=== PATIENT | female | born 1950 | race Caucasian/White ===

== ENCOUNTER 2020-05-26 12:13 | Outpatient (REF) | payer MEDICARE, MEDICAID, SELFPAY ==
[2020-05-26 13:58] LABS: MANUAL DIFF FLAG NO
[2020-05-26 14:14] LABS: Basophils Absolute Auto 0.1 X10*3/uL (0.0-0.2); Basophils Percent Auto 0.7 % (0-2); Eosinophils Absolute Auto 0.1 X10*3/uL (0.0-0.4); Eosinophils Percent Auto 1.6 % (0-4); Hematocrit 38.4 % (37-47); Hemoglobin 12.7 g/dl (12.0-16.0); Imm Gran Abs Auto 0.02 X10*3/uL (0.00-0.03); Imm Gran Pct Auto 0.3 % (0.0-0.4); Lymphocytes Percent Auto 29.1 % (20-40); Mean Corpuscular HGB Conc 33.1 g/dl (31.0-35.0); Mean Corpuscular Hemoglobin 31.2 pg (27.0-33.0); Mean Corpuscular Volume 94.3 fL (80-98); Mean Platelet Volume 12.1 fL (9.4-12.3); Monocytes Absolute Auto 0.5 X10*3/uL (0.1-1.2); Monocytes Percent Auto 7.8 % (2-11); Neutrophils Absolute Auto 4.2 X10*3/uL (2.0-8.3); Neutrophils Percent Auto 60.5 % (45-73); Platelet Count 201 X10*3/uL (160-400); Red Blood Count 4.07 X10*6/uL (4.20-5.50); Red Cell Distribution Width 12.3 % (11.0-16.0); White Blood Count 6.9 X10*3/uL (4.8-10.8)
[2020-05-26 14:57] LABS: Alanine Aminotransferase 20 U/L (0-31); Albumin Level 4.2 g/dL (3.5-5.0); Alkaline Phosphatase 50 U/L (39-117); Anion Gap 13 (12-20); Aspartate Amino Transferase 24 U/L (5-31); Bilirubin Total 0.5 mg/dL (0.0-1.0); Blood Urea Nitrogen 26 mg/dL (9-16); Calcium 9.5 mg/dL (8.4-10.2); Carbon Dioxide 27 mmol/L (22-29); Chloride 105 mmol/L (96-108); Estimated Glomerular Filt Rate 34; Glucose Random 86 mg/dL (60-115); Potassium 4.4 mmol/l (3.3-5.1); Sodium 141 mmol/L (135-145); Total Protein 6.9 g/dL (6.5-8.0)
[2020-05-26 15:02] LABS: Free T4 (Free Thyroxine) 1.18 ng/dL (0.71-1.85); Thyroid Stimulating Hormone 2.23 uIU/mL (0.32-4.0)
== END 2020-05-26 12:14 | disposition home or self-care (01) ==
LOC: HO.10HDL 12:13
PROVIDERS: Visit Provider Internal Medicine
DX: E03.9 Hypothyroidism, unspecified (principal); F31.9 Bipolar disorder, unspecified; N18.9 Chronic kidney disease, unspecified
CPT/HCPCS: 36415; 80053; 84439; 84443; 85025

== ENCOUNTER 2020-07-23 13:06 | Emergency (ER) | payer MEDICARE, MEDICAID, SELFPAY ==
[2020-07-23] VITALS (10 sets, daily range): BP systolic 116–141; BP diastolic 68–85; PULSE 64–104; RESP 14–22; TEMP 36.6–37; O2SAT 96–99; BMI 19.7
--- NOTE | 2020-07-23 16:21 | CT_ITS ---
CT head/brain wo con CLINICAL INFORMATION: Reason for Exam confusion, abnormal gait, slow speech COMPARISON: No prior CT scan available for comparison. TECHNIQUE: Department standard protocol. This CT examination was performed using dose optimization techniques as appropriate, variously including the following: *Automated exposure control *Adjustment of mA and/or kV according to patient size (this includes techniques or standardized protocols for targeted exams where dose is matched to indication/reason for exam; i.e. extremities or head) *Use of iterative reconstruction technique DLP: 672 mGy-cm FINDINGS: CEREBRAL HEMISPHERES: There is no evidence of intra-axial or extra-axial mass, hemorrhage or acute infarct. BRAIN PARENCHYMA: Normal katz-white matter differentiation. SUBDURAL SPACE: No bleed. BASAL GANGLIA AND PINEAL GLAND: Hyperdense foci in the basal ganglia bilaterally likely an iatrogenic calcification. VENTRICLES: Symmetric and normal in size. CEREBELLUM AND BRAINSTEM: No space-occupying mass, hemorrhage or acute infarct. CEREBELLOPONTINE ANGLES: No lesion found. ORBITS: No intraorbital mass. VESSELS: Unremarkable SKULL BASE: Unremarkable INCLUDED SINUSES AT SKULL BASE: Clear SKULL AND SKIN: No fracture or bone lesion found. CT/CT head/brain wo con IMPRESSION: No CT evidence of intracranial space-occupying mass, bleed or infarct.
--- NOTE | 2020-07-23 16:28 | ED_ITS ---
HPI - General Adult General Chief complaint: General Medical <LUCAS Crowe - Last Filed: 07/23/20 19:42> Stated complaint: Multiple Complaints <LUCAS Crowe - Last Filed: 07/23/20 19:42> Time Seen by Provider: 07/23/20 15:27 <LUCAS Crowe - Last Filed: 07/23/20 19:42> Source: patient and family <LUCAS Crowe Last Filed: 07/23/20 19:42> Mode of arrival: ambulatory <LUCAS Crowe - Last Filed: 07/23/20 19:42> Limitations: no limitations <LUCAS Crowe Last Filed: 07/23/20 19:42> History of Present Illness HPI narrative: 70 y/o female with history of chronic back pain on opiates, bipolar, depression, HTN, CKD, hypothyroidism, who presents to the ER with her sister complaining of 2 weeks of dizziness, poor appetite, poor sleep and feeling off balance. She states she is on Tramadol for back pain and this makes her dizziness worse. She also thinks her BP meds may be making her dizziness worse as well. She reports headaches for the last 3 days, generalized and aching in nature. She denies numbness, tingling, focal weakness. She admits to feeling off balance and having a difficulty walking. Spoke with patient's sister who also provided history. She states her sister's depression is worsening. She made vague suicidal statements today saying she didn't care if she lived or or whatever happened to her. She has been refusing activities that used to bring her coni. She has lost 10lbs in the last 2 weeks. She denies a history of SI or attempts in the past. <LUCAS Crowe - Last Filed: 07/23/20 19:42> MD complaint: dizziness <LUCAS Crowe - Last Filed: 07/23/20 19:42> Onset (ago): week(s) (2) <LUCAS Crowe Last Filed: 07/23/20 19:42> Location: head <LUCAS Crowe Last Filed: 07/23/20 19:42> Radiation: non-radiation <LUCAS Crowe Last Filed: 07/23/20 19:42> Severity: moderate <LUCAS Crowe Last Filed: 07/23/20 19:42> Quality: aching <LUCAS Crowe Last Filed: 07/23/20 19:42> Pain Consistency: intermittent <LUCAS Crowe Last Filed: 07/23/20 19:42> Relieving factors: rest <LUCAS Crowe Last Filed: 07/23/20 19:42> Exacerbating factors: movement <LUCAS Crowe Last Filed: 07/23/20 19:42> Associated symptoms: confusion, headaches, loss of appetite, malaise and weakness <LUCAS Crowe Last Filed: 07/23/20 19:42> Treatments prior to arrival: none <LUCAS Crowe Last Filed: 07/23/20 19:42> Related Data Home medications: Home Medications Medication Instructions Recorded Confirmed levothyroxine 1 tab PO DAILY 07/23/20 07/23/20 metoprolol tartrate 1 tab PO BID 07/23/20 07/23/20 norethindrone ac-eth estradiol 1 tab PO DAILY 07/23/20 07/23/20 olanzapine 1 tab PO BEDTIME 07/23/20 07/23/20 tramadol 1 tab PO BID PRN 07/23/20 07/23/20 <LUCAS Crowe Last Filed: 07/23/20 19:42> Allergies/adverse reactions: Allergies Allergy/AdvReac Type Severity Reaction Status Date / Time No Known Allergies Allergy Verified 07/23/20 19:15 <LUCAS Crowe Last Filed: 07/23/20 19:42> Review of Systems Review of Systems: Constitutional: No Fever, No Chills ENT/Mouth: No sore throat, No Rhinorrhea, No Swallowing Difficulty Eyes: No Eye Pain, No Swelling, No Redness Cardiovascular: No Chest Pain, No SOB, No Orthopnea, No Edema Respiratory: No Cough, No Sputum, No Wheezing, No dyspnea Gastrointestinal: No Nausea, No Vomiting, No Diarrhea, No abdominal Pain, +cons tipation Genitourinary: No Dysuria, No Urinary Frequency, No Hematuria Musculoskeletal: No joint pain, + Myalgias Skin: No Skin Lesions, No rash Neuro: + Weakness, No Numbness, + Dizziness, + Headache Psych: No Anxiety/Panic, + Depression Heme/Lymph: No Bruising, + Lymphadenopathy (left post auricular) Endocrine: No Polyuria, No Polydipsia <LUCAS Crowe - Last Filed: 07/23/20 19:42> FOR[facility]LY [facility] Past Medical History Attestation statement: The following information was validated with the patient. <LUCAS Crowe - Last Filed: 07/23/20 19:42> Medical History: Medical History Bipolar 1 disorder Herniated disc HTN (hypertension) Hypothyroid Vision abnormalities <LUCAS Crowe - Last Filed: 07/23/20 19:42> Social History Social History: Social History Alcohol intake: unknown Smoking Status: Never smoker Use of substances other than those prescribed or required for medical reasons: Unknown Advance Directives: No Advance Directives Information Provided: Yes <LUCAS Crowe - Last Filed: 07/23/20 19:42> Physical Exam Vital Signs: Vital Signs: Last Vital Signs Temp 98.6 F 07/23/20 22:00 Pulse 98 07/24/20 06:20 Resp 20 07/24/20 06:20 BP 120/76 07/24/20 06:20 Pulse Ox 97 07/24/20 06:20 Body Mass Index 19.7 Appearance: Alert. Oriented X3. No acute distress. Eyes: Pupils equal, round and reactive to light. ENT: Pharynx normal. Neck: Normal inspection. Neck supple. CVS: Normal heart rate and rhythm. Pulses normal. Respiratory: No respiratory distress. Breath sounds normal. Abdomen: Soft and nontender. +BS x4 Skin: Skin warm and dry. Normal skin color. Normal skin turgor. No rashes. Extremities: No lower extremity edema. Negative Kristofer's sign. Neuro: Oriented X 3. No motor or sensory deficit. Repetitive speech. <LUCAS Crowe - Last Filed: 07/23/20 19:42> Vital Signs: Last Vital Signs Temp 98.6 F 07/23/20 22:00 Pulse 98 07/24/20 06:20 Resp 20 07/24/20 06:20 BP 120/76 07/24/20 06:20 Pulse Ox 97 07/24/20 06:20 Body Mass Index 19.7 <LUCAS Lamb - Last Filed: 07/24/20 02:19> Vital Signs: Last Vital Signs Temp 98.6 F 07/23/20 22:00 Pulse 98 07/24/20 06:20 Resp 20 07/24/20 06:20 BP 120/76 07/24/20 06:20 Pulse Ox 97 07/24/20 06:20 Body Mass Index 19.7 <Mariana Mojica DO - Last Filed: 07/24/20 06:48> NIH Stroke Scale Internal: Initial- Upon Arrival <LUCAS Crowe - Last Filed: 07/23/20 19:42> Level of Consciousness: Alert <LUCAS Crowe - Last Filed: 07/23/20 19:42> Level of Consciousness Questions: Answers both questions correctly <LUCAS Crowe - Last Filed: 07/23/20 19:42> Level of Consciousness Commands: Performs both tasks correctly <LUCAS Crowe - Last Filed: 07/23/20 19:42> Best Gaze: Normal <LUCAS Crowe - Last Filed: 07/23/20 19:42> Visual: No visual loss <LUCAS Crowe - Last Filed: 07/23/20 19:42> Facial Palsy: Normal <LUCAS Crowe - Last Filed: 07/23/20 19:42> Motor Arm (Right): No drift <LUCAS Crowe - Last Filed: 07/23/20 19:42> Motor Arm (Left): No drift <LUCAS Crowe - Last Filed: 07/23/20 19:42> Motor Leg (Right): No drift <LUCAS Crowe - Last Filed: 07/23/20 19:42> Motor Leg (Left): No drift <LUCAS Crowe - Last Filed: 07/23/20 19:42> Limb Ataxia: Absent <LUCAS Crowe - Last Filed: 07/23/20 19:42> Sensory: Normal <LUCAS Crowe Last Filed: 07/23/20 19:42> Best Language: No aphasia <LUCAS Crowe Last Filed: 07/23/20 19:42> Dysarthia: Mild to moderate dysarthria <LUCAS Crowe Last Filed: 07/23/20 19:42> Extinction and Inattention: No abnormality <LUCAS Crowe Last Filed: 07/23/20 19:42> Score: 1 <LUCAS Crowe - Last Filed: 07/23/20 19:42> Course Course Course Narrative: 70 yo female presenting with dizziness, headache, poor PO intake with 10 unintentional weight loss. Concern for failure to thrive and worsening bipolar depression. Will r/o all metabolic and organic causes with full workup including CT head to assess for CVA. Neuro exam is reassuring without focal weakness or abnormality. Once medically cleared will have her seen by [facility] & PT. <LUCAS Crowe Last Filed: 07/23/20 19:42> Reevaluation(s) Reevaluation #1: CT head unremarkable. Metabolic workup showing baseling mild CKD with stable lytes, mild new anemia. UA + for mild infection - Rocephin ordered. Not septic. Found to be COVID-19 POSITIVE. She denies SOB, cough, chest pain. This could explain her dizziness, weakness and loss of appetite. Results were discussed with both the patient and her sister over the phone. Not comfortable with d/c home and they both agree. Will get PT evaluation in the morning. N also consu lted for worsening depression and vague SI statements today. <LUCAS Crowe - Last Filed: 07/23/20 19:42> Reevaluation #2: CXR showing peripheral multifocal GGO. Spo2 99% on RA. No resp complaints. <LUCAS Crowe Last Filed: 07/23/20 19:42> Medical Decision Making Lab Data Result diagrams: : 07/23/20 16:38 07/23/20 16:38 <LUCAS Crowe Last Filed: 07/23/20 19:42> Labs: Lab Results 07/23/20 07/23/2021 Range/Units 16:37 16:38 16:38 WBC 8.8 (4.8-10.8) X10*3/uL RBC 3.72 L (4.20-5.50) X10*6/uL Hgb 11.5 L (12.0-16.0) g/dl Hct 34.8 L (37-47) % MCV 93.5 (80-98) fL MCH 30.9 (27.0-33.0) pg MCHC 33.0 (31.0-35.0) g/dl RDW 12.4 (11.0-16.0) % Plt Count 310 D (160-400) X10*3/uL MPV 9.9 (9.4-12.3) fL Immature Gran % (Auto) 0.6 H (0.0-0.4) % Neut % (Auto) 77.8 H (45-73) % Lymph % (Auto) 14.5 L (20-40) % [place] % (Auto) 6.7 (2-11) % Eos % (Auto) 0.2 (0-4) % Baso % (Auto) 0.2 (0-2) % Lymph # (Auto) 1.3 (1.2-4.9) X10*3/uL [place] # (Auto) 0.6 (0.1-1.2) X10*3/uL Eos # (Auto) 0.0 (0.0-0.4) X10*3/uL Baso # (Auto) 0.0 (0.0-0.2) X10*3/uL Abs Immat Gran (auto) 0.05 H (0.00-0.03) X10*3/uL Absolute Neuts (auto) 6.8 (2.0-8.3) X10*3/uL Absolute Nucleated RBC 0.000 (0.0-0.012) X10*3/uL Nucleated RBC % (auto) 0.0 (0.0-0.2) /100WBC PT (10.8-13.0) SEC INR (0.9-1.1) APTT (24.1-38.0) SEC Sodium 140 (135-145) mmol/L Potassium 4.2 (3.3-5.1) mmol/l Chloride 107 (96-108) mmol/L Carbon Dioxide 25 (22-29) mmol/L Anion Gap 12 (12-20) BUN 18 H (9-16) mg/dL Creatinine 1.53 H (0.5-1.4) mg/dL Estim Creat Clear Calc 28.6 Estimated GFR 34 Random Glucose 185 H D (60-115) mg/dL Lactic Acid 1.3 (0.5-2.0) mmol/L Calcium 9.0 (8.4-10.2) mg/dL Magnesium 2.5 (1.6-2.6) mg/dL Total Bilirubin 0.3 (0.0-1.0) mg/dL Direct Bilirubin 0.2 (0.0-0.5) mg/dL AST 30 (5-31) U/L ALT 45 H (0-31) U/L Alkaline Phosphatase 52 (39-117) U/L Troponin I High Sens (<3.5-17.0) ng/L B-Natriuretic Peptide (<100) pg/mL Total Protein 6.9 (6.5-8.0) g/dL Albumin 3.8 (3.5-5.0) g/dL TSH 1.68 (0.32-4.0) mIU/mL Urine Color Urine Appearance Urine pH (5.0-8.0) Ur Specific [place] (1.005-1.025) Urine Protein (NEG-TRACE) MG/DL Urine Glucose (UA) (NEG) MG/DL Urine Ketones (NEG) MG/DL Urine Blood (NEG) Urine Nitrite (NEG) Ur Leukocyte Esterase (NEG) Urine RBC (0) /HPF Urine WBC (0-4) /HPF Ur Squamous Epith Cells /LPF Urine Bacteria /LPF Urine Opiates Screen (Not Detect) Ur Barbiturates Screen (Not Detect) Ur Phencyclidine Scrn (Not Detect) Ur Amphetamines Screen (Not Detect) U Benzodiazepines Scrn (Not Detect) Urine Cocaine Screen (Not Detect) U Marijuana (THC) Screen (Not Detect) Ethyl Alcohol mg/dL Coronavirus (PCR) (Negative) Influenza Type A (PCR) (Negative) Influenza Type B (PCR) (Negative) RSV RNA Qual (PCR) (Negative) 07/23/20 07/23/20 07/23/20 Range/Units 16:38 16:38 16:38 WBC (4.8-10.8) X10*3/uL RBC (4.20-5.50) X10*6/uL Hgb (12.0-16.0) g/dl Hct (37-47) % MCV (80-98) fL MCH (27.0-33.0) pg MCHC (31.0-35.0) g/dl RDW (11.0-16.0) % Plt Count (160-400) X10*3/uL MPV (9.4-12.3) fL Immature Gran % (Auto) (0.0-0.4) % Neut % (Auto) (45-73) % Lymph % (Auto) (20-40) % [place] % (Auto) (2-11) % Eos % (Auto) (0-4) % Baso % (Auto) (0-2) % Lymph # (Auto) (1.2-4.9) X10*3/uL [place] # (Auto) (0.1-1.2) X10*3/uL Eos # (Auto) (0.0-0.4) X10*3/uL Baso # (Auto) (0.0-0.2) X10*3/uL Abs Immat Gran (auto) (0.00-0.03) X10*3/uL Absolute Neuts (auto) (2.0-8.3) X10*3/uL Absolute Nucleated RBC (0.0-0.012) X10*3/uL Nucleated RBC % (auto) (0.0-0.2) /100WBC PT (10.8-13.0) SEC INR (0.9-1.1) APTT (24.1-38.0) SEC Sodium (135-145) mmol/L Potassium (3.3-5.1) mmol/l Chloride (96-108) mmol/L Carbon Dioxide (22-29) mmol/L Anion Gap (12-20) BUN (9-16) mg/dL Creatinine (0.5-1.4) mg/dL Estim Creat Clear Calc Estimated GFR Random Glucose (60-115) mg/dL Lactic Acid (0.5-2.0) mmol/L Calcium (8.4-10.2) mg/dL Magnesium (1.6-2.6) mg/dL Total Bilirubin (0.0-1.0) mg/dL Direct Bilirubin (0.0-0.5) mg/dL AST (5-31) U/L ALT (0-31) U/L Alkaline Phosphatase (39-117) U/L Troponin I High Sens 4.9 (<3.5-17.0) ng/L B-Natriuretic Peptide 54 (<100) pg/mL Total Protein (6.5-8.0) g/dL Albumin (3.5-5.0) g/dL TSH (0.32-4.0) mIU/mL Urine Color Urine Appearance Urine pH (5.0-8.0) Ur Specific [place] (1.005-1.025) Urine Protein (NEG-TRACE) MG/DL Urine Glucose (UA) (NEG) MG/DL Urine Ketones (NEG) MG/DL Urine Blood (NEG) Urine Nitrite (NEG) Ur Leukocyte Esterase (NEG) Urine RBC (0) /HPF Urine WBC (0-4) /HPF Ur Squamous Epith Cells /LPF Urine Bacteria /LPF Urine Opiates Screen (Not Detect) Ur Barbiturates Screen (Not Detect) Ur Phencyclidine Scrn (Not Detect) Ur Amphetamines Screen (Not Detect) U Benzodiazepines Scrn (Not Detect) Urine Cocaine Screen (Not Detect) U Marijuana (THC) Screen (Not Detect) Ethyl Alcohol < 10 mg/dL Coronavirus (PCR) (Negative) Influenza Type A (PCR) (Negative) Influenza Type B (PCR) (Negative) RSV RNA Qual (PCR) (Negative) 07/23/20 07/23/20 07/23/20 Range/Units 16:40 16:47 17:28 WBC (4.8-10.8) X10*3/uL RBC (4.20-5.50) X10*6/uL Hgb (12.0-16.0) g/dl Hct (37-47) % MCV (80-98) fL MCH (27.0-33.0) pg MCHC (31.0-35.0) g/dl RDW (11.0-16.0) % Plt Count (160-400) X10*3/uL MPV (9.4-12.3) fL Immature Gran % (Auto) (0.0-0.4) % Neut % (Auto) (45-73) % Lymph % (Auto) (20-40) % [place] % (Auto) (2-11) % Eos % (Auto) (0-4) % Baso % (Auto) (0-2) % Lymph # (Auto) (1.2-4.9) X10*3/uL [place] # (Auto) (0.1-1.2) X10*3/uL Eos # (Auto) (0.0-0.4) X10*3/uL Baso # (Auto) (0.0-0.2) X10*3/uL Abs Immat Gran (auto) (0.00-0.03) X10*3/uL Absolute Neuts (auto) (2.0-8.3) X10*3/uL Absolute Nucleated RBC (0.0-0.012) X10*3/uL Nucleated RBC % (auto) (0.0-0.2) /100WBC PT 12.8 (10.8-13.0) SEC INR 1.1 (0.9-1.1) APTT 28.7 (24.1-38.0) SEC Sodium (135-145) mmol/L Potassium (3.3-5.1) mmol/l Chloride (96-108) mmol/L Carbon Dioxide (22-29) mmol/L Anion Gap (12-20) BUN (9-16) mg/dL Creatinine (0.5-1.4) mg/dL Estim Creat Clear Calc Estimated GFR Random Glucose (60-115) mg/dL Lactic Acid (0.5-2.0) mmol/L Calcium (8.4-10.2) mg/dL Magnesium (1.6-2.6) mg/dL Total Bilirubin (0.0-1.0) mg/dL Direct Bilirubin (0.0-0.5) mg/dL AST (5-31) U/L ALT (0-31) U/L Alkaline Phosphatase (39-117) U/L Troponin I High Sens (<3.5-17.0) ng/L B-Natriuretic Peptide (<100) pg/mL Total Protein (6.5-8.0) g/dL Albumin (3.5-5.0) g/dL TSH (0.32-4.0) mIU/mL Urine Color YELLOW Urine Appearance CLEAR Urine pH 7.0 (5.0-8.0) Ur Specific [place] <= 1.005 (1.005-1.025) Urine Protein NEG (NEG-TRACE) MG/DL Urine Glucose (UA) NEG (NEG) MG/DL Urine Ketones NEG (NEG) MG/DL Urine Blood TRACE (NEG) Urine Nitrite NEG (NEG) Ur Leukocyte Esterase 1+ H (NEG) Urine RBC 1-4 (0) /HPF Urine WBC 5-9 H (0-4) /HPF Ur Squamous Epith Cells 1+ /LPF Urine Bacteria TRACE /LPF Urine Opiates Screen (Not Detect) Ur Barbiturates Screen (Not Detect) Ur Phencyclidine Scrn (Not Detect) Ur Amphetamines Screen (Not Detect) U Benzodiazepines Scrn (Not Detect) Urine Cocaine Screen (Not Detect) U Marijuana (THC) Screen (Not Detect) Ethyl Alcohol mg/dL Coronavirus (PCR) POSITIVE A (Negative) Influenza Type A (PCR) NEGATIVE (Negative) Influenza Type B (PCR) NEGATIVE (Negative) RSV RNA Qual (PCR) NEGATIVE (Negative) 07/23/20 Range/Units 17:28 WBC (4.8-10.8) X10*3/uL RBC (4.20-5.50) X10*6/uL Hgb (12.0-16.0) g/dl Hct (37-47) % MCV (80-98) fL MCH (27.0-33.0) pg MCHC (31.0-35.0) g/dl RDW (11.0-16.0) % Plt Count (160-400) X10*3/uL MPV (9.4-12.3) fL Immature Gran % (Auto) (0.0-0.4) % Neut % (Auto) (45-73) % Lymph % (Auto) (20-40) % [place] % (Auto) (2-11) % Eos % (Auto) (0-4) % Baso % (Auto) (0-2) % Lymph # (Auto) (1.2-4.9) X10*3/uL [place] # (Auto) (0.1-1.2) X10*3/uL Eos # (Auto) (0.0-0.4) X10*3/uL Baso # (Auto) (0.0-0.2) X10*3/uL Abs Immat Gran (auto) (0.00-0.03) X10*3/uL Absolute Neuts (auto) (2.0-8.3) X10*3/uL Absolute Nucleated RBC (0.0-0.012) X10*3/uL Nucleated RBC % (auto) (0.0-0.2) /100WBC PT (10.8-13.0) SEC INR (0.9-1.1) APTT (24.1-38.0) SEC Sodium (135-145) mmol/L Potassium (3.3-5.1) mmol/l Chloride (96-108) mmol/L Carbon Dioxide (22-29) mmol/L Anion Gap (12-20) BUN (9-16) mg/dL Creatinine (0.5-1.4) mg/dL Estim Creat Clear Calc Estimated GFR Random Glucose (60-115) mg/dL Lactic Acid (0.5-2.0) mmol/L Calcium (8.4-10.2) mg/dL Magnesium (1.6-2.6) mg/dL Total Bilirubin (0.0-1.0) mg/dL Direct Bilirubin (0.0-0.5) mg/dL AST (5-31) U/L ALT (0-31) U/L Alkaline Phosphatase (39-117) U/L Troponin I High Sens (<3.5-17.0) ng/L B-Natriuretic Peptide (<100) pg/mL Total Protein (6.5-8.0) g/dL Albumin (3.5-5.0) g/dL TSH (0.32-4.0) mIU/mL Urine Color Urine Appearance Urine pH (5.0-8.0) Ur Specific [place] (1.005-1.025) Urine Protein (NEG-TRACE) MG/DL Urine Glucose (UA) (NEG) MG/DL Urine Ketones (NEG) MG/DL Urine Blood (NEG) Urine Nitrite (NEG) Ur Leukocyte Esterase (NEG) Urine RBC (0) /HPF Urine WBC (0-4) /HPF Ur Squamous Epith Cells /LPF Urine Bacteria /LPF Urine Opiates Screen Not Detected (Not Detect) Ur Barbiturates Screen Not Detected (Not Detect) Ur Phencyclidine Scrn Not Detected (Not Detect) Ur Amphetamines Screen Not Detected (Not Detect) U Benzodiazepines Scrn Not Detected (Not Detect) Urine Cocaine Screen Not Detected (Not Detect) U Marijuana (THC) Screen Not Detected (Not Detect) Ethyl Alcohol mg/dL Coronavirus (PCR) (Negative) Influenza Type A (PCR) (Negative) Influenza Type B (PCR) (Negative) RSV RNA Qual (PCR) (Negative) <LUCAS Crowe - Last Filed: 07/23/20 19:42> Lab Results 07/23/20 07/23/20 07/23/20 Range/Units 16:37 16:38 16:38 WBC 8.8 (4.8-10.8) X10*3/uL RBC 3.72 L (4.20-5.50) X10*6/uL Hgb 11.5 L (12.0-16.0) g/dl Hct 34.8 L (37-47) % MCV 93.5 (80-98) fL MCH 30.9 (27.0-33.0) pg MCHC 33.0 (31.0-35.0) g/dl RDW 12.4 (11.0-16.0) % Plt Count 310 D (160-400) X10*3/uL MPV 9.9 (9.4-12.3) fL Immature Gran % (Auto) 0.6 H (0.0-0.4) % Neut % (Auto) 77.8 H (45-73) % Lymph % (Auto) 14.5 L (20-40) % [place] % (Auto) 6.7 (2-11) % Eos % (Auto) 0.2 (0-4) % Baso % (Auto) 0.2 (0-2) % Lymph # (Auto) 1.3 (1.2-4.9) X10*3/uL [place] # (Auto) 0.6 (0.1-1.2) X10*3/uL Eos # (Auto) 0.0 (0.0-0.4) X10*3/uL Baso # (Auto) 0.0 (0.0-0.2) X10*3/uL Abs Immat Gran (auto) 0.05 H (0.00-0.03) X10*3/uL Absolute Neuts (auto) 6.8 (2.0-8.3) X10*3/uL Absolute Nucleated RBC 0.000 (0.0-0.012) X10*3/uL Nucleated RBC % (auto) 0.0 (0.0-0.2) /100WBC PT (10.8-13.0) SEC INR (0.9-1.1) APTT (24.1-38.0) SEC Sodium 140 (135-145) mmol/L Potassium 4.2 (3.3-5.1) mmol/l Chloride 107 (96-108) mmol/L Carbon Dioxide 25 (22-29) mmol/L Anion Gap 12 (12-20) BUN 18 H (9-16) mg/dL Creatinine 1.53 H (0.5-1.4) mg/dL Estim Creat Clear Calc 28.6 Estimated GFR 34 Random Glucose 185 H D (60-115) mg/dL Lactic Acid 1.3 (0.5-2.0) mmol/L Calcium 9.0 (8.4-10.2) mg/dL Magnesium 2.5 (1.6-2.6) mg/dL Total Bilirubin 0.3 (0.0-1.0) mg/dL Direct Bilirubin 0.2 (0.0-0.5) mg/dL AST 30 (5-31) U/L ALT 45 H (0-31) U/L Alkaline Phosphatase 52 (39-117) U/L Troponin I High Sens (<3.5-17.0) ng/L B-Natriuretic Peptide (<100) pg/mL Total Protein 6.9 (6.5-8.0) g/dL Albumin 3.8 (3.5-5.0) g/dL TSH 1.68 (0.32-4.0) mIU/mL Urine Color Urine Appearance Urine pH (5.0-8.0) Ur Specific [place] (1.005-1.025) Urine Protein (NEG-TRACE) MG/DL Urine Glucose (UA) (NEG) MG/DL Urine Ketones (NEG) MG/DL Urine Blood (NEG) Urine Nitrite (NEG) Ur Leukocyte Esterase (NEG) Urine RBC (0) /HPF Urine WBC (0-4) /HPF Ur Squamous Epith Cells /LPF Urine Bacteria /LPF Urine Opiates Screen (Not Detect) Ur Barbiturates Screen (Not Detect) Ur Phencyclidine Scrn (Not Detect) Ur Amphetamines Screen (Not Detect) U Benzodiazepines Scrn (Not Detect) Urine Cocaine Screen (Not Detect) U Marijuana (THC) Screen (Not Detect) Ethyl Alcohol mg/dL Coronavirus (PCR) (Negative) Influenza Type A (PCR) (Negative) Influenza Type B (PCR) (Negative) RSV RNA Qual (PCR) (Negative) 07/23/20 07/23/20 07/23/20 Range/Units 16:38 16:38 16:38 WBC (4.8-10.8) X10*3/uL RBC (4.20-5.50) X10*6/uL Hgb (12.0-16.0) g/dl Hct (37-47) % MCV (80-98) fL MCH (27.0-33.0) pg MCHC (31.0-35.0) g/dl RDW (11.0-16.0) % Plt Count (160-400) X10*3/uL MPV (9.4-12.3) fL Immature Gran % (Auto) (0.0-0.4) % Neut % (Auto) (45-73) % Lymph % (Auto) (20-40) % [place] % (Auto) (2-11) % Eos % (Auto) (0-4) % Baso % (Auto) (0-2) % Lymph # (Auto) (1.2-4.9) X10*3/uL [place] # (Auto) (0.1-1.2) X10*3/uL Eos # (Auto) (0.0-0.4) X10*3/uL Baso # (Auto) (0.0-0.2) X10*3/uL Abs Immat Gran (auto) (0.00-0.03) X10*3/uL Absolute Neuts (auto) (2.0-8.3) X10*3/uL Absolute Nucleated RBC (0.0-0.012) X10*3/uL Nucleated RBC % (auto) (0.0-0.2) /100WBC PT (10.8-13.0) SEC INR (0.9-1.1) APTT (24.1-38.0) SEC Sodium (135-145) mmol/L Potassium (3.3-5.1) mmol/l Chloride (96-108) mmol/L Carbon Dioxide (22-29) mmol/L Anion Gap (12-20) BUN (9-16) mg/dL Creatinine (0.5-1.4) mg/dL Estim Creat Clear Calc Estimated GFR Random Glucose (60-115) mg/dL Lactic Acid (0.5-2.0) mmol/L Calcium (8.4-10.2) mg/dL Magnesium (1.6-2.6) mg/dL Total Bilirubin (0.0-1.0) mg/dL Direct Bilirubin (0.0-0.5) mg/dL AST (5-31) U/L ALT (0-31) U/L Alkaline Phosphatase (39-117) U/L Troponin I High Sens 4.9 (<3.5-17.0) ng/L B-Natriuretic Peptide 54 (<100) pg/mL Total Protein (6.5-8.0) g/dL Albumin (3.5-5.0) g/dL TSH (0.32-4.0) mIU/mL Urine Color Urine Appearance Urine pH (5.0-8.0) Ur Specific [place] (1.005-1.025) Urine Protein (NEG-TRACE) MG/DL Urine Glucose (UA) (NEG) MG/DL Urine Ketones (NEG) MG/DL Urine Blood (NEG) Urine Nitrite (NEG) Ur Leukocyte Esterase (NEG) Urine RBC (0) /HPF Urine WBC (0-4) /HPF Ur Squamous Epith Cells /LPF Urine Bacteria /LPF Urine Opiates Screen (Not Detect) Ur Barbiturates Screen (Not Detect) Ur Phencyclidine Scrn (Not Detect) Ur Amphetamines Screen (Not Detect) U Benzodiazepines Scrn (Not Detect) Urine Cocaine Screen (Not Detect) U Marijuana (THC) Screen (Not Detect) Ethyl Alcohol < 10 mg/dL Coronavirus (PCR) (Negative) Influenza Type A (PCR) (Negative) Influenza Type B (PCR) (Negative) RSV RNA Qual (PCR) (Negative) 07/23/20 07/23/20 07/23/20 Range/Units 16:40 16:47 17:28 WBC (4.8-10.8) X10*3/uL RBC (4.20-5.50) X10*6/uL Hgb (12.0-16.0) g/dl Hct (37-47) % MCV (80-98) fL MCH (27.0-33.0) pg MCHC (31.0-35.0) g/dl RDW (11.0-16.0) % Plt Count (160-400) X10*3/uL MPV (9.4-12.3) fL Immature Gran % (Auto) (0.0-0.4) % Neut % (Auto) (45-73) % Lymph % (Auto) (20-40) % [place] % (Auto) (2-11) % Eos % (Auto) (0-4) % Baso % (Auto) (0-2) % Lymph # (Auto) (1.2-4.9) X10*3/uL [place] # (Auto) (0.1-1.2) X10*3/uL Eos # (Auto) (0.0-0.4) X10*3/uL Baso # (Auto) (0.0-0.2) X10*3/uL Abs Immat Gran (auto) (0.00-0.03) X10*3/uL Absolute Neuts (auto) (2.0-8.3) X10*3/uL Absolute Nucleated RBC (0.0-0.012) X10*3/uL Nucleated RBC % (auto) (0.0-0.2) /100WBC PT 12.8 (10.8-13.0) SEC INR 1.1 (0.9-1.1) APTT 28.7 (24.1-38.0) SEC Sodium (135-145) mmol/L Potassium (3.3-5.1) mmol/l Chloride (96-108) mmol/L Carbon Dioxide (22-29) mmol/L Anion Gap (12-20) BUN (9-16) mg/dL Creatinine (0.5-1.4) mg/dL Estim Creat Clear Calc Estimated GFR Random Glucose (60-115) mg/dL Lactic Acid (0.5-2.0) mmol/L Calcium (8.4-10.2) mg/dL Magnesium (1.6-2.6) mg/dL Total Bilirubin (0.0-1.0) mg/dL Direct Bilirubin (0.0-0.5) mg/dL AST (5-31) U/L ALT (0-31) U/L Alkaline Phosphatase (39-117) U/L Troponin I High Sens (<3.5-17.0) ng/L B-Natriuretic Peptide (<100) pg/mL Total Protein (6.5-8.0) g/dL Albumin (3.5-5.0) g/dL TSH (0.32-4.0) mIU/mL Urine Color YELLOW Urine Appearance CLEAR Urine pH 7.0 (5.0-8.0) Ur Specific [place] <= 1.005 (1.005-1.025) Urine Protein NEG (NEG-TRACE) MG/DL Urine Glucose (UA) NEG (NEG) MG/DL Urine Ketones NEG (NEG) MG/DL Urine Blood TRACE (NEG) Urine Nitrite NEG (NEG) Ur Leukocyte Esterase 1+ H (NEG) Urine RBC 1-4 (0) /HPF Urine WBC 5-9 H (0-4) /HPF Ur Squamous Epith Cells 1+ /LPF Urine Bacteria TRACE /LPF Urine Opiates Screen (Not Detect) Ur Barbiturates Screen (Not Detect) Ur Phencyclidine Scrn (Not Detect) Ur Amphetamines Screen (Not Detect) U Benzodiazepines Scrn (Not Detect) Urine Cocaine Screen (Not Detect) U Marijuana (THC) Screen (Not Detect) Ethyl Alcohol mg/dL Coronavirus (PCR) POSITIVE A (Negative) Influenza Type A (PCR) NEGATIVE (Negative) Influenza Type B (PCR) NEGATIVE (Negative) RSV RNA Qual (PCR) NEGATIVE (Negative) 07/23/20 Range/Units 17:28 WBC (4.8-10.8) X10*3/uL RBC (4.20-5.50) X10*6/uL Hgb (12.0-16.0) g/dl Hct (37-47) % MCV (80-98) fL MCH (27.0-33.0) pg MCHC (31.0-35.0) g/dl RDW (11.0-16.0) % Plt Count (160-400) X10*3/uL MPV (9.4-12.3) fL Immature Gran % (Auto) (0.0-0.4) % Neut % (Auto) (45-73) % Lymph % (Auto) (20-40) % [place] % (Auto) (2-11) % Eos % (Auto) (0-4) % Baso % (Auto) (0-2) % Lymph # (Auto) (1.2-4.9) X10*3/uL [place] # (Auto) (0.1-1.2) X10*3/uL Eos # (Auto) (0.0-0.4) X10*3/uL Baso # (Auto) (0.0-0.2) X10*3/uL Abs Immat Gran (auto) (0.00-0.03) X10*3/uL Absolute Neuts (auto) (2.0-8.3) X10*3/uL Absolute Nucleated RBC (0.0-0.012) X10*3/uL Nucleated RBC % (auto) (0.0-0.2) /100WBC PT (10.8-13.0) SEC INR (0.9-1.1) APTT (24.1-38.0) SEC Sodium (135-145) mmol/L Potassium (3.3-5.1) mmol/l Chloride (96-108) mmol/L Carbon Dioxide (22-29) mmol/L Anion Gap (12-20) BUN (9-16) mg/dL Creatinine (0.5-1.4) mg/dL Estim Creat Clear Calc Estimated GFR Random Glucose (60-115) mg/dL Lactic Acid (0.5-2.0) mmol/L Calcium (8.4-10.2) mg/dL Magnesium (1.6-2.6) mg/dL Total Bilirubin (0.0-1.0) mg/dL Direct Bilirubin (0.0-0.5) mg/dL AST (5-31) U/L ALT (0-31) U/L Alkaline Phosphatase (39-117) U/L Troponin I High Sens (<3.5-17.0) ng/L B-Natriuretic Peptide (<100) pg/mL Total Protein (6.5-8.0) g/dL Albumin (3.5-5.0) g/dL TSH (0.32-4.0) mIU/mL Urine Color Urine Appearance Urine pH (5.0-8.0) Ur Specific [place] (1.005-1.025) Urine Protein (NEG-TRACE) MG/DL Urine Glucose (UA) (NEG) MG/DL Urine Ketones (NEG) MG/DL Urine Blood (NEG) Urine Nitrite (NEG) Ur Leukocyte Esterase (NEG) Urine RBC (0) /HPF Urine WBC (0-4) /HPF Ur Squamous Epith Cells /LPF Urine Bacteria /LPF Urine Opiates Screen Not Detected (Not Detect) Ur Barbiturates Screen Not Detected (Not Detect) Ur Phencyclidine Scrn Not Detected (Not Detect) Ur Amphetamines Screen Not Detected (Not Detect) U Benzodiazepines Scrn Not Detected (Not Detect) Urine Cocaine Screen Not Detected (Not Detect) U Marijuana (THC) Screen Not Detected (Not Detect) Ethyl Alcohol mg/dL Coronavirus (PCR) (Negative) Influenza Type A (PCR) (Negative) Influenza Type B (PCR) (Negative) RSV RNA Qual (PCR) (Negative) <LUCAS Lamb - Last Filed: 07/24/20 02:19> Lab Results 07/23/20 07/23/20 07/23/20 Range/Units 16:37 16:38 16:38 WBC 8.8 (4.8-10.8) X10*3/uL RBC 3.72 L (4.20-5.50) X10*6/uL Hgb 11.5 L (12.0-16.0) g/dl Hct 34.8 L (37-47) % MCV 93.5 (80-98) fL MCH 30.9 (27.0-33.0) pg MCHC 33.0 (31.0-35.0) g/dl RDW 12.4 (11.0-16.0) % Plt Count 310 D (160-400) X10*3/uL MPV 9.9 (9.4-12.3) fL Immature Gran % (Auto) 0.6 H (0.0-0.4) % Neut % (Auto) 77.8 H (45-73) % Lymph % (Auto) 14.5 L (20-40) % [place] % (Auto) 6.7 (2-11) % Eos % (Auto) 0.2 (0-4) % Baso % (Auto) 0.2 (0-2) % Lymph # (Auto) 1.3 (1.2-4.9) X10*3/uL [place] # (Auto) 0.6 (0.1-1.2) X10*3/uL Eos # (Auto) 0.0 (0.0-0.4) X10*3/uL Baso # (Auto) 0.0 (0.0-0.2) X10*3/uL Abs Immat Gran (auto) 0.05 H (0.00-0.03) X10*3/uL Absolute Neuts (auto) 6.8 (2.0-8.3) X10*3/uL Absolute Nucleated RBC 0.000 (0.0-0.012) X10*3/uL Nucleated RBC % (auto) 0.0 (0.0-0.2) /100WBC PT (10.8-13.0) SEC INR (0.9-1.1) APTT (24.1-38.0) SEC Sodium 140 (135-145) mmol/L Potassium 4.2 (3.3-5.1) mmol/l Chloride 107 (96-108) mmol/L Carbon Dioxide 25 (22-29) mmol/L Anion Gap 12 (12-20) BUN 18 H (9-16) mg/dL Creatinine 1.53 H (0.5-1.4) mg/dL Estim Creat Clear Calc 28.6 Estimated GFR 34 Random Glucose 185 H D (60-115) mg/dL Lactic Acid 1.3 (0.5-2.0) mmol/L Calcium 9.0 (8.4-10.2) mg/dL Magnesium 2.5 (1.6-2.6) mg/dL Total Bilirubin 0.3 (0.0-1.0) mg/dL Direct Bilirubin 0.2 (0.0-0.5) mg/dL AST 30 (5-31) U/L ALT 45 H (0-31) U/L Alkaline Phosphatase 52 (39-117) U/L Troponin I High Sens (<3.5-17.0) ng/L B-Natriuretic Peptide (<100) pg/mL Total Protein 6.9 (6.5-8.0) g/dL Albumin 3.8 (3.5-5.0) g/dL TSH 1.68 (0.32-4.0) mIU/mL Urine Color Urine Appearance Urine pH (5.0-8.0) Ur Specific [place] (1.005-1.025) Urine Protein (NEG-TRACE) MG/DL Urine Glucose (UA) (NEG) MG/DL Urine Ketones (NEG) MG/DL Urine Blood (NEG) Urine Nitrite (NEG) Ur Leukocyte Esterase (NEG) Urine RBC (0) /HPF Urine WBC (0-4) /HPF Ur Squamous Epith Cells /LPF Urine Bacteria /LPF Urine Opiates Screen (Not Detect) Ur Barbiturates Screen (Not Detect) Ur Phencyclidine Scrn (Not Detect) Ur Amphetamines Screen (Not Detect) U Benzodiazepines Scrn (Not Detect) Urine Cocaine Screen (Not Detect) U Marijuana (THC) Screen (Not Detect) Ethyl Alcohol mg/dL Coronavirus (PCR) (Negative) Influenza Type A (PCR) (Negative) Influenza Type B (PCR) (Negative) RSV RNA Qual (PCR) (Negative) 07/23/20 07/23/20 07/23/20 Range/Units 16:38 16:38 16:38 WBC (4.8-10.8) X10*3/uL RBC (4.20-5.50) X10*6/uL Hgb (12.0-16.0) g/dl Hct (37-47) % MCV (80-98) fL MCH (27.0-33.0) pg MCHC (31.0-35.0) g/dl RDW (11.0-16.0) % Plt Count (160-400) X10*3/uL MPV (9.4-12.3) fL Immature Gran % (Auto) (0.0-0.4) % Neut % (Auto) (45-73) % Lymph % (Auto) (20-40) % [place] % (Auto) (2-11) % Eos % (Auto) (0-4) % Baso % (Auto) (0-2) % Lymph # (Auto) (1.2-4.9) X10*3/uL [place] # (Auto) (0.1-1.2) X10*3/uL Eos # (Auto) (0.0-0.4) X10*3/uL Baso # (Auto) (0.0-0.2) X10*3/uL Abs Immat Gran (auto) (0.00-0.03) X10*3/uL Absolute Neuts (auto) (2.0-8.3) X10*3/uL Absolute Nucleated RBC (0.0-0.012) X10*3/uL Nucleated RBC % (auto) (0.0-0.2) /100WBC PT (10.8-13.0) SEC INR (0.9-1.1) APTT (24.1-38.0) SEC Sodium (135-145) mmol/L Potassium (3.3-5.1) mmol/l Chloride (96-108) mmol/L Carbon Dioxide (22-29) mmol/L Anion Gap (12-20) BUN (9-16) mg/dL Creatinine (0.5-1.4) mg/dL Estim Creat Clear Calc Estimated GFR Random Glucose (60-115) mg/dL Lactic Acid (0.5-2.0) mmol/L Calcium (8.4-10.2) mg/dL Magnesium (1.6-2.6) mg/dL Total Bilirubin (0.0-1.0) mg/dL Direct Bilirubin (0.0-0.5) mg/dL AST (5-31) U/L ALT (0-31) U/L Alkaline Phosphatase (39-117) U/L Troponin I High Sens 4.9 (<3.5-17.0) ng/L B-Natriuretic Peptide 54 (<100) pg/mL Total Protein (6.5-8.0) g/dL Albumin (3.5-5.0) g/dL TSH (0.32-4.0) mIU/mL Urine Color Urine Appearance Urine pH (5.0-8.0) Ur Specific [place] (1.005-1.025) Urine Protein (NEG-TRACE) MG/DL Urine Glucose (UA) (NEG) MG/DL Urine Ketones (NEG) MG/DL Urine Blood (NEG) Urine Nitrite (NEG) Ur Leukocyte Esterase (NEG) Urine RBC (0) /HPF Urine WBC (0-4) /HPF Ur Squamous Epith Cells /LPF Urine Bacteria /LPF Urine Opiates Screen (Not Detect) Ur Barbiturates Screen (Not Detect) Ur Phencyclidine Scrn (Not Detect) Ur Amphetamines Screen (Not Detect) U Benzodiazepines Scrn (Not Detect) Urine Cocaine Screen (Not Detect) U Marijuana (THC) Screen (Not Detect) Ethyl Alcohol < 10 mg/dL Coronavirus (PCR) (Negative) Influenza Type A (PCR) (Negative) Influenza Type B (PCR) (Negative) RSV RNA Qual (PCR) (Negative) 07/23/20 07/23/20 07/23/20 Range/Units 16:40 16:47 17:28 WBC (4.8-10.8) X10*3/uL RBC (4.20-5.50) X10*6/uL Hgb (12.0-16.0) g/dl Hct (37-47) % MCV (80-98) fL MCH (27.0-33.0) pg MCHC (31.0-35.0) g/dl RDW (11.0-16.0) % Plt Count (160-400) X10*3/uL MPV (9.4-12.3) fL Immature Gran % (Auto) (0.0-0.4) % Neut % (Auto) (45-73) % Lymph % (Auto) (20-40) % [place] % (Auto) (2-11) % Eos % (Auto) (0-4) % Baso % (Auto) (0-2) % Lymph # (Auto) (1.2-4.9) X10*3/uL [place] # (Auto) (0.1-1.2) X10*3/uL Eos # (Auto) (0.0-0.4) X10*3/uL Baso # (Auto) (0.0-0.2) X10*3/uL Abs Immat Gran (auto) (0.00-0.03) X10*3/uL Absolute Neuts (auto) (2.0-8.3) X10*3/uL Absolute Nucleated RBC (0.0-0.012) X10*3/uL Nucleated RBC % (auto) (0.0-0.2) /100WBC PT 12.8 (10.8-13.0) SEC INR 1.1 (0.9-1.1) APTT 28.7 (24.1-38.0) SEC Sodium (135-145) mmol/L Potassium (3.3-5.1) mmol/l Chloride (96-108) mmol/L Carbon Dioxide (22-29) mmol/L Anion Gap (12-20) BUN (9-16) mg/dL Creatinine (0.5-1.4) mg/dL Estim Creat Clear Calc Estimated GFR Random Glucose (60-115) mg/dL Lactic Acid (0.5-2.0) mmol/L Calcium (8.4-10.2) mg/dL Magnesium (1.6-2.6) mg/dL Total Bilirubin (0.0-1.0) mg/dL Direct Bilirubin (0.0-0.5) mg/dL AST (5-31) U/L ALT (0-31) U/L Alkaline Phosphatase (39-117) U/L Troponin I High Sens (<3.5-17.0) ng/L B-Natriuretic Peptide (<100) pg/mL Total Protein (6.5-8.0) g/dL Albumin (3.5-5.0) g/dL TSH (0.32-4.0) mIU/mL Urine Color YELLOW Urine Appearance CLEAR Urine pH 7.0 (5.0-8.0) Ur Specific [place] <= 1.005 (1.005-1.025) Urine Protein NEG (NEG-TRACE) MG/DL Urine Glucose (UA) NEG (NEG) MG/DL Urine Ketones NEG (NEG) MG/DL Urine Blood TRACE (NEG) Urine Nitrite NEG (NEG) Ur Leukocyte Esterase 1+ H (NEG) Urine RBC 1-4 (0) /HPF Urine WBC 5-9 H (0-4) /HPF Ur Squamous Epith Cells 1+ /LPF Urine Bacteria TRACE /LPF Urine Opiates Screen (Not Detect) Ur Barbiturates Screen (Not Detect) Ur Phencyclidine Scrn (Not Detect) Ur Amphetamines Screen (Not Detect) U Benzodiazepines Scrn (Not Detect) Urine Cocaine Screen (Not Detect) U Marijuana (THC) Screen (Not Detect) Ethyl Alcohol mg/dL Coronavirus (PCR) POSITIVE A (Negative) Influenza Type A (PCR) NEGATIVE (Negative) Influenza Type B (PCR) NEGATIVE (Negative) RSV RNA Qual (PCR) NEGATIVE (Negative) 07/23/20 Range/Units 17:28 WBC (4.8-10.8) X10*3/uL RBC (4.20-5.50) X10*6/uL Hgb (12.0-16.0) g/dl Hct (37-47) % MCV (80-98) fL MCH (27.0-33.0) pg MCHC (31.0-35.0) g/dl RDW (11.0-16.0) % Plt Count (160-400) X10*3/uL MPV (9.4-12.3) fL Immature Gran % (Auto) (0.0-0.4) % Neut % (Auto) (45-73) % Lymph % (Auto) (20-40) % [place] % (Auto) (2-11) % Eos % (Auto) (0-4) % Baso % (Auto) (0-2) % Lymph # (Auto) (1.2-4.9) X10*3/uL [place] # (Auto) (0.1-1.2) X10*3/uL Eos # (Auto) (0.0-0.4) X10*3/uL Baso # (Auto) (0.0-0.2) X10*3/uL Abs Immat Gran (auto) (0.00-0.03) X10*3/uL Absolute Neuts (auto) (2.0-8.3) X10*3/uL Absolute Nucleated RBC (0.0-0.012) X10*3/uL Nucleated RBC % (auto) (0.0-0.2) /100WBC PT (10.8-13.0) SEC INR (0.9-1.1) APTT (24.1-38.0) SEC Sodium (135-145) mmol/L Potassium (3.3-5.1) mmol/l Chloride (96-108) mmol/L Carbon Dioxide (22-29) mmol/L Anion Gap (12-20) BUN (9-16) mg/dL Creatinine (0.5-1.4) mg/dL Estim Creat Clear Calc Estimated GFR Random Glucose (60-115) mg/dL Lactic Acid (0.5-2.0) mmol/L Calcium (8.4-10.2) mg/dL Magnesium (1.6-2.6) mg/dL Total Bilirubin (0.0-1.0) mg/dL Direct Bilirubin (0.0-0.5) mg/dL AST (5-31) U/L ALT (0-31) U/L Alkaline Phosphatase (39-117) U/L Troponin I High Sens (<3.5-17.0) ng/L B-Natriuretic Peptide (<100) pg/mL Total Protein (6.5-8.0) g/dL Albumin (3.5-5.0) g/dL TSH (0.32-4.0) mIU/mL Urine Color Urine Appearance Urine pH (5.0-8.0) Ur Specific [place] (1.005-1.025) Urine Protein (NEG-TRACE) MG/DL Urine Glucose (UA) (NEG) MG/DL Urine Ketones (NEG) MG/DL Urine Blood (NEG) Urine Nitrite (NEG) Ur Leukocyte Esterase (NEG) Urine RBC (0) /HPF Urine WBC (0-4) /HPF Ur Squamous Epith Cells /LPF Urine Bacteria /LPF Urine Opiates Screen Not Detected (Not Detect) Ur Barbiturates Screen Not Detected (Not Detect) Ur Phencyclidine Scrn Not Detected (Not Detect) Ur Amphetamines Screen Not Detected (Not Detect) U Benzodiazepines Scrn Not Detected (Not Detect) Urine Cocaine Screen Not Detected (Not Detect) U Marijuana (THC) Screen Not Detected (Not Detect) Ethyl Alcohol mg/dL Coronavirus (PCR) (Negative) Influenza Type A (PCR) (Negative) Influenza Type B (PCR) (Negative) RSV RNA Qual (PCR) (Negative) <Mariana Mojica DO - Last Filed: 07/24/20 06:48> Discharge Plan Discharge Clinical Impression: COVID-19, Acute UTI, Adult failure to thrive <LUCAS Crowe - Last Filed: 07/23/20 19:42> Prescriptions: No Action tramadol 50 mg tablet 1 tab PO BID PRN (Reason: pain) RF: 0 norethindrone ac-eth estradiol 1-5 mg-mcg tablet 1 tab PO DAILY RF: 0 levothyroxine 50 mcg tablet 1 tab PO DAILY RF: 0 metoprolol tartrate 50 mg tablet 1 tab PO BID RF: 0 olanzapine 15 mg tablet 1 tab PO BEDTIME RF: 0 <LUCAS Crowe - Last Filed: 07/23/20 19:42>
[2020-07-23 16:45] LABS: MANUAL DIFF FLAG NO
[2020-07-23 16:47] LABS: Basophils Percent Auto 0.2 % (0-2); Eosinophils Percent Auto 0.2 % (0-4); Hematocrit 34.8 % (37-47); Hemoglobin 11.5 g/dl (12.0-16.0); Imm Gran Abs Auto 0.05 X10*3/uL (0.00-0.03); Imm Gran Pct Auto 0.6 % (0.0-0.4); Lymphocytes Absolute Auto 1.3 X10*3/uL (1.2-4.9); Lymphocytes Percent Auto 14.5 % (20-40); Mean Corpuscular Hemoglobin 30.9 pg (27.0-33.0); Mean Corpuscular Volume 93.5 fL (80-98); Mean Platelet Volume 9.9 fL (9.4-12.3); Monocytes Absolute Auto 0.6 X10*3/uL (0.1-1.2); Monocytes Percent Auto 6.7 % (2-11); Neutrophils Absolute Auto 6.8 X10*3/uL (2.0-8.3); Neutrophils Percent Auto 77.8 % (45-73); Platelet Count 310 X10*3/uL (160-400); Red Blood Count 3.72 X10*6/uL (4.20-5.50); Red Cell Distribution Width 12.4 % (11.0-16.0); White Blood Count 8.8 X10*3/uL (4.8-10.8)
[2020-07-23 17:00] LABS: INTERNATIONAL NORM RATIO 1.1 (0.9-1.1); Prothrombin Time 12.8 SEC (10.8-13.0)
[2020-07-23 17:03] LABS: Partial Thromboplastin Time 28.7 SEC (24.1-38.0)
[2020-07-23 17:04] LABS: Lactic Acid 1.3 mmol/L (0.5-2.0)
[2020-07-23 17:07] LABS: Ethanol < 10 mg/dL
[2020-07-23 17:10] LABS: Alanine Aminotransferase 45 U/L (0-31); Albumin Level 3.8 g/dL (3.5-5.0); Alkaline Phosphatase 52 U/L (39-117); Anion Gap 12 (12-20); Aspartate Amino Transferase 30 U/L (5-31); Bilirubin Direct 0.2 mg/dL (0.0-0.5); Bilirubin Total 0.3 mg/dL (0.0-1.0); Blood Urea Nitrogen 18 mg/dL (9-16); Carbon Dioxide 25 mmol/L (22-29); Chloride 107 mmol/L (96-108); Creatinine Clr Calc Pharmacy 28.6; Estimated Glomerular Filt Rate 34; Glucose Random 185 mg/dL (60-115); Magnesium 2.5 mg/dL (1.6-2.6); Potassium 4.2 mmol/l (3.3-5.1); Sodium 140 mmol/L (135-145); Total Protein 6.9 g/dL (6.5-8.0)
[2020-07-23 17:12] LABS: Troponin-I High Sensitivity 4.9 ng/L (<3.5-17.0)
[2020-07-23 17:27] LABS: B Type Natriuretic Peptide 54 pg/mL (<100)
[2020-07-23 17:29] LABS: TSH reflex Free T4 1.68 mIU/mL (0.32-4.0)
[2020-07-23 17:35] LABS: Influenza A PCR NEGATIVE (Negative); Influenza B PCR NEGATIVE (Negative); Resp Syncy Virus RNA Qual PCR NEGATIVE (Negative); SARS COV2 PCR INHOUSE POSITIVE (Negative)
[2020-07-23 17:49] LABS: Glucose Urine UA NEG (NEG); Leukocyte Esterase Urine 1+ (NEG); Nitrite Urine NEG (NEG); Specific Gravity - Urine <= 1.005 (1.005-1.025); Urine Blood TRACE (NEG); Urine Ketones NEG (NEG); Urine Protein NEG (NEG-TRACE)
[2020-07-23 17:51] LABS: Appearance Urine CLEAR; Color Urine YELLOW
[2020-07-23 17:57] LABS: Amphetamine Screen Urine Not Detected (Not Detect); Barbiturates, Urine Not Detected (Not Detect); Benzodiazepines Screen Urine Not Detected (Not Detect); Cannabinoid Screen Urine Not Detected (Not Detect); Cocaine Screen Urine Not Detected (Not Detect); Opiate Screen Urine Not Detected (Not Detect); Phencyclidine Screen Urine Not Detected (Not Detect)
[2020-07-23] MEDS: 0.9 % Sodium Chloride 1,000 ML 999 ML IVCONT (18:02)
[2020-07-23 18:04] LABS: Bacteria Urine TRACE /LPF; Squamous Epithelial Cell Urine 1+ /LPF
--- NOTE | 2020-07-23 18:31 | XR_ITS ---
EXAMINATION: XR CHEST CLINICAL INFORMATION: Covid positive COMPARISON: None TECHNIQUE: Portable 6:29 PM view of the chest was obtained. FINDINGS: Multifocal groundglass opacities relative peripheral bilaterally consistent with atypical infection including viral infection. Mild prominence of the thoracic aorta likely due to thoracic tortuosity with unfolding. Heart size normal. No pleural effusion or ectopic air. XR/XR chest 1V IMPRESSION: As above.
[2020-07-23] MEDS: cefTRIAXone sodium 1 GM in 0.9 % Sodium Chloride 50 ML IV (19:22)
[2020-07-23] MEDS: traMADoL HCL 50 MG TABLET PO (20:13)
[2020-07-23] MEDS: Metoprolol Tartrate 50 MG TABLET PO (20:13)
[2020-07-23] MEDS: OLANZapine 7.5 MG TABLET 15 MG PO (20:14)
--- NOTE | 2020-07-23 20:19 | PC.NURSE ---
Patient medicated per emar as noted. Patient is quite and anxious person. She appears to be somewhat confused.
--- NOTE | 2020-07-24 02:33 | PC.NURSE ---
ARISTIDESN EVALUATED PATIENT, REPORTS THAT PT IS CLEARED FROM BEHAVIORAL HEALTH.
[2020-07-24 06:20] VITALS: BP 120/76; PULSE 98; RESP 20; O2SAT 97
[2020-07-24 09:44] VITALS: BP 120/76; PULSE 98; O2SAT 97
[2020-07-24 10:28] VITALS: BP 119/79; PULSE 63; RESP 24; O2SAT 100
[2020-07-24 10:29] VITALS: BP 119/79; PULSE 63
[2020-07-24] MEDS: Metoprolol Tartrate 50 MG TABLET PO (10:29)
[2020-07-24] MEDS: Levothyroxine Sodium 50 MCG TABLET PO (10:29)
[2020-07-24 12:39] VITALS: BP 142/84; PULSE 57; RESP 19; TEMP 36.4; O2SAT 99
--- NOTE | 2020-07-24 13:42 | PC.NURSE ---
Pt ate approx 85% of lunch- up independently to bathroom, ambulating in short distances with steady gait. Pt cooperative with plan of care for case management- pending eval from case management.
--- NOTE | 2020-07-24 15:05 | MHC.CM.ED ---
Received case management consult overnight. Patient is positiive for Covid. Physical therapy eval completed. Home therapy is recommended. Met with patient in regards to discharge planning. Patient lives alone, ambulates independently and had no services prior to coming to the ER. PCP verified. [facility] is not able to offer services at this time. Referral broadcasted in [employer]. [facility] is able to accept patient. Patient agreeable to [facility] at d/c. Patient requesting T/W reach out to her sisterLorraine to arrange transportation. Left voicemail at [phone] requesting return telephone call. Continue to monitor for d/c needs.
[2020-07-24 16:23] VITALS: BP 127/67; PULSE 61; RESP 18; O2SAT 95
== END 2020-07-24 16:45 | disposition home or self-care (01) ==
PROVIDERS: Physician Assistant; Emergency Provider Emergency Medicine; PCP Internal Medicine
DX: U07.1 COVID-19 (principal); N39.0 Urinary tract infection, site not specified; R62.7 Adult failure to thrive; R42 Dizziness and giddiness; M54.5 Low back pain; R51.9 Headache, unspecified; Z79.891 Long term (current) use of opiate analgesic; Z79.899 Other long term (current) drug therapy
CPT/HCPCS: 0241U; 36415; 70450; 71045; 80048; 80076; 80307; 80320; 81001; 83605; 83735; 83880; 84443; 84484; 85025; 85610; 85730; 87040; 87086; 87088; 87186; 96361; 96365; 97162; 99284; J0696

== ENCOUNTER 2020-08-08 14:53 | Outpatient (REF) | payer MEDICARE, MEDICAID, SELFPAY ==
[2020-08-08 15:42] LABS: Estimated Average Glucose 114 mg/dL; Hemoglobin A1c % 5.6 %
[2020-08-08 15:53] LABS: Anion Gap 14 (12-20); Blood Urea Nitrogen 24 mg/dL (9-16); Calcium 9.8 mg/dL (8.4-10.2); Carbon Dioxide 25 mmol/L (22-29); Chloride 107 mmol/L (96-108); Estimated Glomerular Filt Rate 32; Glucose Random 86 mg/dL (60-115); Potassium 4.2 mmol/L (3.3-5.1); Sodium 142 mmol/L (135-145)
[2020-08-08 16:04] LABS: Glucose Urine UA NEG (NEG); Leukocyte Esterase Urine NEG (NEG); Nitrite Urine NEG (NEG); PH 5.5 (5.0-8.0); Urine Blood NEG (NEG); Urine Ketones NEG (NEG); Urine Protein NEG (NEG-TRACE)
[2020-08-08 16:07] LABS: Appearance Urine CLEAR; Color Urine YELLOW
== END 2020-08-08 14:54 | disposition home or self-care (01) ==
LOC: HO.LAB 14:53
PROVIDERS: PCP Internal Medicine; Visit Provider Internal Medicine
DX: R73.03 Prediabetes (principal); R42 Dizziness and giddiness; N18.9 Chronic kidney disease, unspecified; E03.9 Hypothyroidism, unspecified; R30.0 Dysuria
CPT/HCPCS: 36415; 80048; 81003; 83036; 87086

== ENCOUNTER 2020-11-27 10:52 | Outpatient (REF) | payer MEDICARE, MEDICAID, SELFPAY ==
--- NOTE | ~2020-11-27 | MM_ITS ---
EXAMINATION: MM SCREENING DIGITAL BREAST TOMOSYNTHESIS, BILATERAL CLINICAL INFORMATION: Screening. Asymptomatic. The lifetime risk of breast cancer based on the Tyrer-Cuzick Model is 8%. COMPARISON: Mammography: December 11, 2017 and studies dating back to October 01, 2011 TECHNIQUE: Digital breast tomosynthesis is performed in both the craniocaudal and mediolateral oblique views along with computer-aided detection (CAD). Synthesized 2D images are generated from the tomosynthesis. FINDINGS: The breasts are heterogeneously dense, which may obscure small masses (ACR BI-RADS breast composition Category c). There are no significant masses, abnormal calcifications, or other abnormalities. MM/MM tomosynthesis screening BI IMPRESSION: There are no significant changes from prior study. ASSESSMENT: BI-RADS 1: Negative RECOMMENDATION: Routine annual mammography screening. This patient's information was entered into a reminder system with a target due date for their next mammogram.
== END 2020-11-27 10:53 | disposition home or self-care (01) ==
LOC: HO.MAMMO 10:52
PROVIDERS: PCP Internal Medicine; Referring Provider Obstetrics & Gynecology; Visit Provider Internal Medicine
DX: Z12.31 Encounter for screening mammogram for malignant neoplasm of breast (principal)
CPT/HCPCS: 77063; 77067

== ENCOUNTER 2021-02-06 08:18 | Outpatient (REF) | payer MEDICARE, MEDICAID, SELFPAY ==
[2021-02-06 10:19] LABS: MANUAL DIFF FLAG NO
[2021-02-06 10:41] LABS: Basophils Absolute Auto 0.1 X10*3/uL (0.0-0.2); Basophils Percent Auto 0.9 % (0-2); Eosinophils Absolute Auto 0.2 X10*3/uL (0.0-0.4); Eosinophils Percent Auto 3.1 % (0-4); Hematocrit 39.1 % (37-47); Hemoglobin 12.8 g/dl (12.0-16.0); Imm Gran Abs Auto 0.02 X10*3/uL (0.00-0.03); Imm Gran Pct Auto 0.3 % (0.0-0.4); Lymphocytes Percent Auto 33.5 % (20-40); Mean Corpuscular HGB Conc 32.7 g/dl (31.0-35.0); Mean Corpuscular Hemoglobin 31.1 pg (27.0-33.0); Mean Corpuscular Volume 94.9 fL (80-98); Mean Platelet Volume 12.5 fL (9.4-12.3); Monocytes Absolute Auto 0.4 X10*3/uL (0.1-1.2); Neutrophils Absolute Auto 3.3 X10*3/uL (2.0-8.3); Neutrophils Percent Auto 56.2 % (45-73); Platelet Count 188 X10*3/uL (160-400); Red Blood Count 4.12 X10*6/uL (4.20-5.50); Red Cell Distribution Width 12.4 % (11.0-16.0); White Blood Count 5.9 X10*3/uL (4.8-10.8)
[2021-02-06 10:47] LABS: Alanine Aminotransferase 15 U/L (0-31); Albumin Level 4.1 g/dL (3.5-5.0); Alkaline Phosphatase 43 U/L (39-117); Anion Gap 13 (12-20); Aspartate Amino Transferase 20 U/L (5-31); Bilirubin Total 0.5 mg/dL (0.0-1.0); Blood Urea Nitrogen 29 mg/dL (9-16); Calcium 10.6 mg/dL (8.4-10.2); Carbon Dioxide 25 mmol/L (22-29); Chloride 111 mmol/L (96-108); Cholesterol 199 mg/dL; Estimated Glomerular Filt Rate 31; Glucose Fasting 91 mg/dL (60-99); HDL Cholesterol 62 mg/dL; LDL Cholesterol Calculated 109 mg/dl; Potassium 4.5 mmol/L (3.3-5.1); Sodium 144 mmol/L (135-145); Total Protein 7.1 g/dL (6.5-8.0); Triglycerides 144 mg/dL
[2021-02-06 10:58] LABS: Estimated Average Glucose 105 mg/dL; Hemoglobin A1c % 5.3 %
[2021-02-06 11:08] LABS: Free T4 (Free Thyroxine) 1.15 ng/dL (0.71-1.85); Thyroid Stimulating Hormone 2.59 uIU/mL (0.32-4.0); Vitamin D 25-OH Total 62.6 ng/mL (>30)
== END 2021-02-06 08:19 | disposition home or self-care (01) ==
LOC: HO.10HDL 08:18
PROVIDERS: PCP Internal Medicine; Visit Provider Internal Medicine
DX: E78.00 Pure hypercholesterolemia, unspecified (principal); I12.9 Hypertensive chronic kidney disease with stage 1 through stage 4 chronic kidney disease, or unspecified chronic kidney disease; N18.9 Chronic kidney disease, unspecified; E03.9 Hypothyroidism, unspecified; M54.9 Dorsalgia, unspecified
CPT/HCPCS: 36415; 80053; 80061; 82306; 83036; 84439; 84443; 85025

== ENCOUNTER 2022-05-27 11:52 | Outpatient (REF) | payer MEDICARE, MEDICAID, SELFPAY ==
[2022-05-27 12:03] LABS: MANUAL DIFF FLAG NO
[2022-05-27 13:53] LABS: Basophils Absolute Auto 0.1 X10*3/uL (0.0-0.2); Basophils Percent Auto 0.7 % (0-2); Eosinophils Absolute Auto 0.1 X10*3/uL (0.0-0.4); Eosinophils Percent Auto 1.4 % (0-4); Hemoglobin 12.3 g/dl (12.0-16.0); Imm Gran Abs Auto 0.03 X10*3/uL (0.00-0.03); Imm Gran Pct Auto 0.4 % (0.0-0.4); Lymphocytes Percent Auto 28.9 % (20-40); Mean Corpuscular HGB Conc 31.5 g/dl (31.0-35.0); Mean Corpuscular Hemoglobin 29.9 pg (27.0-33.0); Mean Corpuscular Volume 94.9 fL (80.0-98.0); Mean Platelet Volume 11.6 fL (9.4-12.3); Monocytes Absolute Auto 0.4 X10*3/uL (0.1-1.2); Monocytes Percent Auto 5.7 % (2-11); Neutrophils Absolute Auto 4.4 x10*3/uL (2.0-8.3); Neutrophils Percent Auto 62.9 % (45-73); Platelet Count 202 X10*3/uL (160-400); Red Blood Count 4.11 X10*6/uL (4.20-5.50); White Blood Count 7.1 X10*3/uL (4.8-10.8)
[2022-05-27 14:21] LABS: Alanine Aminotransferase 23 U/L (0-31); Albumin Level 4.3 g/dL (3.5-5.0); Alkaline Phosphatase 49 U/L (39-117); Anion Gap 14 (12-20); Aspartate Amino Transferase 24 U/L (5-31); Bilirubin Total 0.4 mg/dL (0.0-1.0); Blood Urea Nitrogen 29 mg/dL (9-16); Calcium 10.2 mg/dL (8.4-10.2); Carbon Dioxide 26 mmol/L (22-29); Chloride 106 mmol/L (96-108); Cholesterol 201 mg/dL; Estimated Glomerular Filt Rate 35; Glucose Random 87 mg/dL (60-115); Potassium 4.1 mmol/L (3.3-5.1); Sodium 142 mmol/L (135-145); Total Protein 7.1 g/dL (6.5-8.0)
[2022-05-27 14:46] LABS: Free T4 (Free Thyroxine) 1.12 ng/dL (0.71-1.85); Thyroid Stimulating Hormone 1.74 uIU/mL (0.32-4.0)
== END 2022-05-27 11:53 | disposition home or self-care (01) ==
LOC: HO.LAB 11:52
PROVIDERS: PCP Internal Medicine; Visit Provider Internal Medicine
DX: E03.9 Hypothyroidism, unspecified (principal); N18.9 Chronic kidney disease, unspecified; F31.9 Bipolar disorder, unspecified
CPT/HCPCS: 36415; 80053; 82465; 84439; 84443; 85025

== ENCOUNTER 2022-10-17 12:26 | Outpatient (REF) | payer MEDICARE, MEDICAID, SELFPAY ==
[2022-10-17 13:33] LABS: Basophils Percent Auto 0.6 % (0-2); Eosinophils Absolute Auto 0.1 X10*3/uL (0.0-0.4); Eosinophils Percent Auto 1.6 % (0-4); Imm Gran Abs Auto 0.02 X10*3/uL (0.00-0.03); Imm Gran Pct Auto 0.3 % (0.0-0.4); Lymphocytes Absolute Auto 2.1 X10*3/uL (1.2-4.9); Lymphocytes Percent Auto 30.5 % (20-40); MANUAL DIFF FLAG NO; Mean Corpuscular HGB Conc 33.3 g/dl (31.0-35.0); Mean Platelet Volume 11.5 fL (9.4-12.3); Monocytes Absolute Auto 0.4 X10*3/uL (0.1-1.2); Monocytes Percent Auto 5.8 % (2-11); Neutrophils Absolute Auto 4.3 x10*3/uL (2.0-8.3); Neutrophils Percent Auto 61.2 % (45-73); Platelet Count 238 X10*3/uL (160-400); Red Blood Count 3.87 X10*6/uL (4.20-5.50)
[2022-10-17 13:54] LABS: Estimated Average Glucose 111 mg/dL; Hemoglobin A1c % 5.5 %
[2022-10-17 13:57] LABS: Alanine Aminotransferase 34 U/L (0-31); Albumin Level 4.2 g/dL (3.5-5.0); Alkaline Phosphatase 57 U/L (39-117); Anion Gap 13 (12-20); Aspartate Amino Transferase 27 U/L (5-31); Bilirubin Total 0.4 mg/dL (0.0-1.0); Blood Urea Nitrogen 24 mg/dL (9-16); Calcium 10.1 mg/dL (8.4-10.2); Carbon Dioxide 26 mmol/L (22-29); Chloride 108 mmol/L (96-108); Estimated Glomerular Filt Rate 34; Glucose Random 98 mg/dL (60-115); Potassium 4.2 mmol/L (3.3-5.1); Sodium 143 mmol/L (135-145)
[2022-10-17 14:14] LABS: Free T4 (Free Thyroxine) 1.18 ng/dL (0.71-1.85); Thyroid Stimulating Hormone 2.41 uIU/mL (0.32-4.0)
== END 2022-10-17 12:27 | disposition home or self-care (01) ==
LOC: HO.10HDL 12:26
PROVIDERS: Visit Provider Internal Medicine
DX: R63.4 Abnormal weight loss (principal); R42 Dizziness and giddiness; N18.9 Chronic kidney disease, unspecified; R73.03 Prediabetes; E03.9 Hypothyroidism, unspecified
CPT/HCPCS: 36415; 80053; 83036; 84439; 84443; 85025

== ENCOUNTER 2022-12-16 11:52 | Outpatient (REF) | payer MEDICARE, MEDICAID, SELFPAY ==
[2022-12-16 13:15] LABS: MANUAL DIFF FLAG NO
[2022-12-16 13:21] LABS: Basophils Percent Auto 0.5 % (0-2); Eosinophils Absolute Auto 0.2 X10*3/uL (0.0-0.4); Eosinophils Percent Auto 2.4 % (0-4); Hematocrit 37.9 % (37.0-47.0); Hemoglobin 12.3 g/dl (12.0-16.0); Imm Gran Abs Auto 0.04 X10*3/uL (0.00-0.03); Imm Gran Pct Auto 0.5 % (0.0-0.4); Lymphocytes Percent Auto 27.4 % (20-40); Mean Corpuscular HGB Conc 32.5 g/dl (31.0-35.0); Mean Corpuscular Hemoglobin 30.5 pg (27.0-33.0); Mean Platelet Volume 11.2 fL (9.4-12.3); Monocytes Absolute Auto 0.5 X10*3/uL (0.1-1.2); Monocytes Percent Auto 6.2 % (2-11); Neutrophils Absolute Auto 4.7 x10*3/uL (2.0-8.3); Platelet Count 237 X10*3/uL (160-400); Red Blood Count 4.03 X10*6/uL (4.20-5.50); Red Cell Distribution Width 12.9 % (11.0-16.0); White Blood Count 7.5 X10*3/uL (4.8-10.8)
[2022-12-16 13:44] LABS: Alanine Aminotransferase 24 U/L (0-31); Albumin Level 4.3 g/dL (3.5-5.0); Alkaline Phosphatase 52 U/L (39-117); Anion Gap 11 (12-20); Aspartate Amino Transferase 23 U/L (5-31); Bilirubin Total 0.3 mg/dL (0.0-1.0); Blood Urea Nitrogen 33 mg/dL (9-16); C Reactive Protein 0.23 mg/dL (< or = 0.50); Calcium 10.6 mg/dL (8.4-10.2); Carbon Dioxide 29 mmol/L (22-29); Chloride 108 mmol/L (96-108); Estimated Glomerular Filt Rate 33; Glucose Random 99 mg/dL (60-115); Iron 65 mcg/dL (30-160); Percent Iron Saturation 21 % (15-50); Potassium 4.2 mmol/L (3.3-5.1); Sodium 144 mmol/L (135-145); Total Iron Binding Capacity 316 mcg/dL (228-428); Total Protein 7.4 g/dL (6.5-8.0); Unsaturated Iron Binding 251 ug/dL
[2022-12-16 13:52] LABS: Thyroid Stimulating Hormone 2.59 uIU/mL (0.32-4.0)
== END 2022-12-16 11:53 | disposition home or self-care (01) ==
LOC: HO.10HDL 11:52
PROVIDERS: Visit Provider Internal Medicine
DX: N18.9 Chronic kidney disease, unspecified (principal); E03.9 Hypothyroidism, unspecified; J00 Acute nasopharyngitis [common cold]
CPT/HCPCS: 36415; 80053; 83540; 84439; 84443; 85025; 86140

== ENCOUNTER 2023-04-11 14:28 | Outpatient (REF) | payer MEDICARE, MEDICAID, SELFPAY ==
[2023-04-11 14:42] LABS: MANUAL DIFF FLAG NO
[2023-04-11 15:20] LABS: Basophils Absolute Auto 0.1 X10*3/uL (0.0-0.2); Basophils Percent Auto 0.5 % (0-2); Eosinophils Absolute Auto 0.1 X10*3/uL (0.0-0.4); Eosinophils Percent Auto 1.3 % (0-4); Hematocrit 37.1 % (37.0-47.0); Hemoglobin 12.1 g/dl (12.0-16.0); Imm Gran Abs Auto 0.05 X10*3/uL (0.00-0.03); Imm Gran Pct Auto 0.5 % (0.0-0.4); Lymphocytes Absolute Auto 1.8 X10*3/uL (1.2-4.9); Lymphocytes Percent Auto 19.3 % (20-40); Mean Corpuscular HGB Conc 32.6 g/dl (31.0-35.0); Mean Corpuscular Hemoglobin 30.2 pg (27.0-33.0); Mean Corpuscular Volume 92.5 fL (80.0-98.0); Mean Platelet Volume 10.7 fL (9.4-12.3); Monocytes Absolute Auto 0.6 X10*3/uL (0.1-1.2); Monocytes Percent Auto 6.3 % (2-11); Neutrophils Absolute Auto 6.9 x10*3/uL (2.0-8.3); Neutrophils Percent Auto 72.1 % (45-73); Platelet Count 327 X10*3/uL (160-400); Red Blood Count 4.01 X10*6/uL (4.20-5.50); Red Cell Distribution Width 12.5 % (11.0-16.0); White Blood Count 9.5 X10*3/uL (4.8-10.8)
[2023-04-11 18:02] LABS: Anion Gap 15 (12-20); Blood Urea Nitrogen 38 mg/dL (9-16); Calcium 10.5 mg/dL (8.4-10.2); Carbon Dioxide 24 mmol/L (22-29); Chloride 107 mmol/L (96-108); Estimated Glomerular Filt Rate 43; Free T4 (Free Thyroxine) 1.13 ng/dL (0.71-1.85); Glucose Random 89 mg/dL (60-115); Potassium 4.1 mmol/L (3.3-5.1); Sodium 142 mmol/L (135-145); Thyroid Stimulating Hormone 2.07 uIU/mL (0.32-4.0)
--- NOTE | 2023-04-17 16:35 | HP_ITS ---
DATE OF SERVICE: 04/11/2023 HISTORY OF PRESENT ILLNESS: Patient is a 73-year-old female who was seen in the office on 04/11/2023 for preop evaluation prior to cataract surgery with Dr. Urban. ALLERGIES: PATIENT HAS NO REPORTED ALLERGIES TO MEDICINES. PAST MEDICAL HISTORY: Significant for, 1. Bipolar disorder. 2. Chronic dizziness. 3. Chronic renal insufficiency. 4. Hypothyroidism. 5. Anxiety. 6. Hay fever. 7. Chronic back pain. 8. Chest wall pain. 9. Prediabetes. 10. Osteoporosis. 11. Tonsils and adenoids in the past. FAMILY HISTORY: Mother at 40 from an [place]. Father lived into his 80s. She has 1 sister and 2 brothers. SOCIAL HISTORY: She lives alone. REVIEW OF SYSTEMS: No fever, chills, or sweats. No change in weight. Some vision changes from the cataracts. No complaints of headaches. No voice changes. No peripheral edema. No complaints of chest pains or shortness of breath. Occasional diarrhea. No abdominal pain or heartburn. Some urinary incontinence, arthritis in her hands, some chronic back pain. No speech changes. Chronic anxiety. Sleep and appetite are normal. She has some cold intolerance. She does have hay fever. No skin complaints. PRESENT MEDICATIONS: Estradiol, norethindrone 1.5, metoprolol 50 mg twice a day, levothyroxine 0.05 mg daily. Zyprexa 10 mg a day, Claritin 10 mg a day, Flonase 1 squirt each nostril twice a day as needed for rhinitis or hay fever. PHYSICAL EXAMINATION: GENERAL: She is awake and alert. VITAL SIGNS: Temperature is 98, pulse 76, respirations 12, pressure 124/78, oxygen saturations 98% on room air. Her weight is 118. She is 5 feet 4 inches. She was given a flu shot on the day of the preop evaluation in the office. HEENT: Pupils equal. TMs clear. Pharynx clear. NECK: Supple. No lymph nodes, bruits, or masses. HEART: Sounds S1 and S2. Regular rate and rhythm. LUNGS: Clear. ABDOMEN: Soft, nontender with positive bowel sounds. EXTREMITIES: No clubbing, cyanosis, or edema. 1+ pulses. NEUROLOGICAL: Intact. Cranial nerves intact. She does not smoke. LABORATORY DATA: Labs are available on [place]. Normal electrolytes. Creatinine in the 1.5 range. Sugar and liver tests are normal. Thyroid levels have been stable. Blood count has been stable. ASSESSMENT/PLAN: She is medically stable for the proposed procedure. I will be available if there are any medical issues. Maxx Palomino MD FC/MODL / [phone]
== END 2023-04-11 14:29 | disposition home or self-care (01) ==
LOC: HO.LAB 14:28
PROVIDERS: PCP Internal Medicine; Visit Provider Internal Medicine
DX: E03.9 Hypothyroidism, unspecified (principal); N18.9 Chronic kidney disease, unspecified; F31.9 Bipolar disorder, unspecified
CPT/HCPCS: 36415; 80048; 84439; 84443; 85025

== ENCOUNTER 2023-04-21 07:23 | Day surgery (SDC) | payer MEDICARE, MEDICAID, SELFPAY ==
[2023-04-16 09:48] VITALS: BMI 19.6
--- NOTE | 2023-04-18 07:40 | MHC.SHP ---
Pre-Procedural Eval Section A Date of Service: 04/18/23 The patient is an INPATIENT: No Changes since office visit: No Cold of Flu in the past 2 weeks, No New Medical Problems, No Changes in Medication and No Patient answered all questions The History & Physical has been completed within 30 days and I have reviewed it.: Yes Section B Chief Complaint: Age-related nuclear cataract, right eye Allergies: Allergies Allergy/AdvReac Type Severity Reaction Status Date / Time No Known Allergies Allergy Verified 07/23/20 19:15 Plan Diagnosis/Plan: Unchanged I have reviewed the history and physical and performed a pertinent physical examination on my patient. No changes have occurred unless specified. Time Spent With Patient Time: Total time managing care of this patient today ____ minutes.
--- NOTE | 2023-04-18 10:29 | P.CONAN_ITS ---
Documented by User: Nydia William NP 04/18/23 10:30 HPI - Anesthesia Eval Consult details Narrative: 73yo F for Right Cataract Extraction IOL Insertion Medically cleared No previous cataract on record PMFSH Active Problems Active Problems: All Active Problems (Updated 04/16/23 @ 09:45 by Maricruz Gonzalez, RN) COVID-19 (Acute) Past Medical History Medical History Glaucoma Arthritis Back pain Hypothyroid HTN (hypertension) Vision abnormalities Bipolar 1 disorder Herniated disc Surgical History Surgical History (Updated 04/21/23 @ 08:44 by Delisa Lanier RN) H/O oral surgery Social History Social History Are you a primary health care sanitary technician to a significant other at home: No Do you presently have visiting nurse or other home services: No Alcohol intake: unknown Patient Tobacco Use Status: Never used Tobacco Use of substances other than those prescribed or required for medical reasons: No Have you been hit, kicked, punched, or otherwise hurt by someone within the past year? If so, by whom?: No Advance Directives: No Advance Directives Information Provided: Yes Advance Directives on File: No Recently lost weight without trying: No Eating poorly because of decreased appetite: No Nutrition Risks: No Nutritional Risk Patient : No : No Poor oral hygiene: Yes (full upper denture and lower partial) Meds Allergies Allergy/AdvReac Type Severity Reaction Status Date / Time No Known Allergies Allergy Verified 04/21/23 08:45 Home Medications Medication Instructions Recorded Confirmed Last Taken Type levothyroxine 50 mcg tablet 1 tab PO DAILY 07/23/20 04/16/23 04/21/23 06:00 History acetaminophen 500 mg tablet 1,000 mg PO TID 04/16/23 04/16/23 Unknown History calcium citrate 200 mg (950 mg) 200 mg PO BEDTIME 04/16/23 04/16/23 Unknown History tablet cholecalciferol (vitamin D3) 50 50 mcg PO QPM 04/16/23 04/16/23 Unknown History mcg (2,000 unit) capsule (Vitamin D3) estradiol-norethindrone acet 1 1 tab PO DAILY 04/16/23 04/16/23 Unknown History mg-0.5 mg tablet fluticasone propionate 50 2 spray intranasal DAILY 04/16/23 04/16/23 Unknown History mcg/actuation nasal spray,suspension latanoprost 0.005 % eye drops 1 drp ophthalmic (eye) BEDTIME 04/16/23 04/16/23 Unknown History metoprolol tartrate 25 mg tablet 25 mg PO BID 04/16/23 04/16/23 04/21/23 06:00 History olanzapine 10 mg tablet 10 mg PO BEDTIME 04/16/23 04/16/23 Unknown History peg 400-propylene glycol (PF) 0.4 1 drp ophthalmic (eye) BID 04/16/23 04/16/23 Unknown History %-0.3 % eye drops in a dropperette (Systane (PF)) Exam Exam Date and Time: April 18, 2023 1029 Height,Weight and Vital Signs: Height 5 ft 5 in Weight 53.524 kg Assessment and Plan Assessment Anesthesia Assessment: Chart Reviewed Documented by User: Garrison Swann MD 04/21/23 08:50 [facility] Past Medical History Medical History Glaucoma Arthritis Back pain Hypothyroid HTN (hypertension) Vision abnormalities Bipolar 1 disorder Herniated disc Family History Family history of problems with anesthesia: No Surgical History Surgical History (Updated 04/21/23 @ 08:44 by Delisa Lanier RN) H/O oral surgery History of Problems with Anesthesia: No Social History Social History Are you a primary health care sanitary technician to a significant other at home: No Do you presently have visiting nurse or other home services: No Alcohol intake: unknown Patient Tobacco Use Status: Never used Tobacco Use of substances other than those prescribed or required for medical reasons: No Have you been hit, kicked, punched, or otherwise hurt by someone within the past year? If so, by whom?: No Advance Directives: No Advance Directives Information Provided: Yes Advance Directives on File: No Recently lost weight without trying: No Eating poorly because of decreased appetite: No Nutrition Risks: No Nutritional Risk Patient : No : No Poor oral hygiene: Yes (full upper denture and lower partial) Meds Allergies Allergy/AdvReac Type Severity Reaction Status Date / Time No Known Allergies Allergy Verified 04/21/23 08:45 Home Medications Medication Instructions Recorded Confirmed Last Taken Type levothyroxine 50 mcg tablet 1 tab PO DAILY 07/23/20 04/16/23 04/21/23 06:00 History acetaminophen 500 mg tablet 1,000 mg PO TID 04/16/23 04/16/23 Unknown History calcium citrate 200 mg (950 mg) 200 mg PO BEDTIME 04/16/23 04/16/23 Unknown History tablet cholecalciferol (vitamin D3) 50 50 mcg PO QPM 04/16/23 04/16/23 Unknown History mcg (2,000 unit) capsule (Vitamin D3) estradiol-norethindrone acet 1 1 tab PO DAILY 04/16/23 04/16/23 Unknown History mg-0.5 mg tablet fluticasone propionate 50 2 spray intranasal DAILY 04/16/23 04/16/23 Unknown History mcg/actuation nasal spray,suspension latanoprost 0.005 % eye drops 1 drp ophthalmic (eye) BEDTIME 04/16/23 04/16/23 Unknown History metoprolol tartrate 25 mg tablet 25 mg PO BID 04/16/23 04/16/23 04/21/23 06:00 History olanzapine 10 mg tablet 10 mg PO BEDTIME 04/16/23 04/16/23 Unknown History peg 400-propylene glycol (PF) 0.4 1 drp ophthalmic (eye) BID 04/16/23 04/16/23 Unknown History %-0.3 % eye drops in a dropperette (Systane (PF)) Exam Airway Mallampati Class: II TM Dist: >3cm Neck ROM: Full Denture: Upper and Lower Assessment and Plan Assessment Anesthesia Assessment: Anesthesia Plan Discussed Final Anesthetic Review Family History of Problems with Anesthesia: No History of Problems with Anesthesia: No NPO: Yes ASA Class: II Final Preanesthetic Review: No Changes in Pt Med Stat, Meds/Allgs Chart Reviewed, Consent Obtained/Reviewed and Anes Risks/Benef Reviewed Patient Risk: Low Procedure Risk: Low Anesthetic Plan Anesthetic Plan: MAC: Disposition: Standard PACU
[2023-04-21] MEDS: Tetracaine HCl/PF 0.5% Oph Sol 4 ML DROPS 1 DROP EYE-RIGHT (08:30)
[2023-04-21] MEDS: Cyclopentolate 1 % Ophth Sol 2 ML DRPBTL 1 DROP EYE-RIGHT ×3 (08:31→08:40)
[2023-04-21] MEDS: Tropicamide 1 % Ophth Sol 3 ML BTL 1 DROP EYE-RIGHT ×3 (08:32→08:41)
[2023-04-21] MEDS: Ketorolac Tromethamine 0.5% Op 5 ML DROPS 1 DROP EYE-RIGHT ×3 (08:33→08:42)
[2023-04-21] MEDS: Phenylephrine HCL 2.5% Oph SoL 2 ML BOTTLE 1 DROP EYE-RIGHT ×3 (08:34→08:43)
[2023-04-21] MEDS: Lactated Ringers 500 ML 50 ML IV (08:42)
[2023-04-21 08:45] VITALS: BP 139/81; PULSE 55; RESP 16; TEMP 36.2; O2SAT 98
--- NOTE | 2023-04-21 09:09 | HO.PNOPHT ---
Ophthalmology Procedure Procedure Date of Service: 04/21/23 Ophthalmology Viscoelastic: Healon Duet Dual Pack Pro Ophthalmology Lenses: SENSAR AR40 (E 3) Procedure Notes: PREOPERATIVE DIAGNOSIS: Decreased visual acuity right eye secondary to cataract POSTOPERATIVE DIAGNOSIS: Same PROCEDURE: Right cataract extraction with intraocular lens insertion SURGEON: Milind Urban M.D. ANESTHESIA: Topical/MAC ESTIMATED BLOOD LOSS: None COMPLICATIONS: None After obtaining informed consent, the patient was brought to the operating room suite and placed in the supine position. After adequate sedation per anesthesia, topical drops of Tetracaine were given to the right eye. The eye was then prepped and draped in the usual sterile fashion. The operating room microscope was then positioned over the operative eye and a lid speculum placed. A paracentesis was created. Viscoelastic was then instilled into the anterior chamber. A three plane incision was then created temporally, utilizing a 2.85 mm keratome. Capsulotomy forceps were then utilized to create a circular tear capsulotomy. Hydrodissection and hydrodelineation were carried out until adequate mobilization of the nucleus occurred. Phacoemulsification was then utilized to remove the dense central nucleus followed by removal of the cortical material utilizing the automated aspiration irrigation unit. Viscoelastic was instilled into the posterior capsular bag followed by placement of a posterior chamber intraocular lens without difficulty. The residual Viscoelastic was then removed utilizing the automated IA machine. The wound was checked and found to be watertight. The patient tolerated the procedure well and the lid speculum was removed. Intracameral injection of Vigamox 0.1 mL followed by a subtenon injection of Kenalog-40 0.2 mL were administered. The patient will be seen in the a.m.
[2023-04-21 09:38] VITALS: BP 143/80; PULSE 54; RESP 16; TEMP 36.1; O2SAT 100
== END 2023-04-21 09:48 | disposition home or self-care (01) ==
PROVIDERS: PCP Internal Medicine; Visit Provider Ophthalmology
PROC: (CPT 66985; principal; 2023-04-21 09:40)
DX: H25.11 Age-related nuclear cataract, right eye (principal); H40.1131 Primary open-angle glaucoma, bilateral, mild stage; H44.21 Degenerative myopia, right eye; I10 Essential (primary) hypertension; E03.9 Hypothyroidism, unspecified; D64.9 Anemia, unspecified; J30.2 Other seasonal allergic rhinitis; Z79.51 Long term (current) use of inhaled steroids; Z79.899 Other long term (current) drug therapy; H44.20 Degenerative myopia, unspecified eye
CPT/HCPCS: 66984; J2250; J3301; V2632

== ENCOUNTER 2023-05-05 07:29 | Day surgery (SDC) | payer MEDICARE, MEDICAID, SELFPAY ==
[2023-04-16 09:59] VITALS: BMI 19.6
--- NOTE | 2023-05-02 07:54 | MHC.SHP ---
Pre-Procedural Eval Section A Date of Service: 05/02/23 The patient is an INPATIENT: No Changes since office visit: No Cold of Flu in the past 2 weeks, No New Medical Problems, No Changes in Medication and No Patient answered all questions The History & Physical has been completed within 30 days and I have reviewed it.: Yes Section B Chief Complaint: Age-related nuclear cataract, left eye Allergies: Allergies Allergy/AdvReac Type Severity Reaction Status Date / Time No Known Allergies Allergy Verified 04/21/23 08:45 Plan Diagnosis/Plan: Unchanged I have reviewed the history and physical and performed a pertinent physical examination on my patient. No changes have occurred unless specified. Time Spent With Patient Time: Total time managing care of this patient today ____ minutes.
[2023-05-05 08:27] VITALS: BP 139/79; PULSE 68; RESP 18; TEMP 36.7; O2SAT 98
[2023-05-05] MEDS: Phenylephrine HCL 2.5% Oph SoL 2 ML BOTTLE 1 DROP EYE-LEFT ×3 (08:28→08:36)
[2023-05-05] MEDS: Tetracaine HCl/PF 0.5% Oph Sol 4 ML DROPS 1 DROP EYE-LEFT (08:28)
[2023-05-05] MEDS: Cyclopentolate 1 % Ophth Sol 2 ML DRPBTL 1 DROP EYE-LEFT ×3 (08:28→08:36)
[2023-05-05] MEDS: Tropicamide 1 % Ophth Sol 3 ML BTL 1 DROP EYE-LEFT ×3 (08:28→08:36)
[2023-05-05] MEDS: Ketorolac Tromethamine 0.5% Op 5 ML DROPS 1 DROP EYE-LEFT ×3 (08:31→08:39)
--- NOTE | 2023-05-05 08:56 | HO.ANESPROP2 ---
[facility] Active Problems Active Problems: All Active Problems (Updated 04/16/23 @ 09:45 by Maricruz Gonzalez RN) COVID-19 (Acute) Past Medical History Medical History Glaucoma Arthritis Back pain Hypothyroid HTN (hypertension) Vision abnormalities Bipolar 1 disorder Herniated disc Family History Family history of problems with anesthesia: No Surgical History Surgical History (Updated 05/05/23 @ 08:37 by Augustina Logan RN) Hx of cataract surgery H/O oral surgery History of Problems with Anesthesia: No Social History Social History Are you a primary health care assistant to a significant other at home: No Do you presently have visiting nurse or other home services: No Alcohol intake: unknown Patient Tobacco Use Status: Never used Tobacco Use of substances other than those prescribed or required for medical reasons: No Have you been hit, kicked, punched, or otherwise hurt by someone within the past year? If so, by whom?: No Advance Directives: No Advance Directives Information Provided: Yes Advance Directives on File: No Recently lost weight without trying: No Eating poorly because of decreased appetite: No Nutrition Risks: No Nutritional Risk Patient : No : No Poor oral hygiene: Yes (full upper partial lower) Meds Allergies Allergy/AdvReac Type Severity Reaction Status Date / Time No Known Allergies Allergy Verified 05/05/23 08:14 Active Medications: Current Medications Povidone Iodine (Povidone Iodine 5 % Ophth Soln 30 Ml Bottle) 1 appl EYE-LEFT PREOP PRN PRN Reason: Pre-Op Surgical Implant Prophy Home Medications Medication Instructions Recorded Confirmed Last Taken Type levothyroxine 50 mcg tablet 1 tab PO DAILY 07/23/20 04/16/23 05/05/23 History acetaminophen 500 mg tablet 1,000 mg PO TID 04/16/23 04/16/23 Unknown History calcium citrate 200 mg (950 mg) 200 mg PO BEDTIME 04/16/23 04/16/23 Unknown History tablet cholecalciferol (vitamin D3) 50 50 mcg PO QPM 04/16/23 04/16/23 Unknown History mcg (2,000 unit) capsule (Vitamin D3) estradiol-norethindrone acet 1 1 tab PO DAILY 04/16/23 04/16/23 Unknown History mg-0.5 mg tablet fluticasone propionate 50 2 spray intranasal DAILY 04/16/23 04/16/23 Unknown History mcg/actuation nasal spray,suspension latanoprost 0.005 % eye drops 1 drp ophthalmic (eye) BEDTIME 04/16/23 04/16/23 Unknown History metoprolol tartrate 25 mg tablet 25 mg PO BID 04/16/23 04/16/23 05/05/23 History olanzapine 10 mg tablet 10 mg PO BEDTIME 04/16/23 04/16/23 Unknown History peg 400-propylene glycol (PF) 0.4 1 drp ophthalmic (eye) BID 04/16/23 04/16/23 Unknown History %-0.3 % eye drops in a dropperette (Systane (PF)) Exam Exam Date and Time: May 05, 2023 0856 Height,Weight and Vital Signs: Height 5 ft 5 in Weight 53.524 kg Last Vital Signs Temp 98.1 F 05/05/23 08:27 Pulse 68 05/05/23 08:27 Resp 18 05/05/23 08:27 BP 139/79 05/05/23 08:27 Pulse Ox 98 05/05/23 08:27 O2 Del Method Room Air 05/05/23 08:27 Airway Mallampati Class: II TM Dist: >3cm Denture: Upper Partial: Lower Assessment and Plan Assessment Anesthesia Assessment: Anesthesia Plan Discussed and Chart Reviewed Final Anesthetic Review Family History of Problems with Anesthesia: No History of Problems with Anesthesia: No NPO: Yes ASA Class: III Final Preanesthetic Review: No Changes in Pt Med Stat, Meds/Allgs Chart Reviewed, Consent Obtained/Reviewed and Anes Risks/Benef Reviewed Patient Risk: Intermediate Assessment/Block/Sedation in SS: Assess/Block/Sedation-SS Anesthetic Plan Anesthetic Plan: MAC: Disposition: Standard PACU
--- NOTE | 2023-05-05 09:30 | HO.PNOPHT ---
Ophthalmology Procedure Procedure Date of Service: 05/05/23 Ophthalmology Viscoelastic: Healon Duet Dual Pack Pro Ophthalmology Lenses: SENSAR AR40 (8) Procedure Notes: PREOPERATIVE DIAGNOSIS: Decreased visual acuity left eye secondary to cataract POSTOPERATIVE DIAGNOSIS: Same PROCEDURE: Left cataract extraction with intraocular lens insertion SURGEON: Milind Urban M.D. ANESTHESIA: Topical/MAC ESTIMATED BLOOD LOSS: None COMPLICATIONS: None After obtaining informed consent, the patient was brought to the operation room suite and placed in the supine position. After adequate sedation per anesthesia, topical drops of Tetracaine were given to the left eye. The eye was then prepped and draped in the usual sterile fashion. The operating room microscope was then positioned over the operative eye and a lid speculum placed. A paracentesis was created. Viscoelastic was then instilled into the anterior chamber. A three plane incision was then created temporally, utilizing a 2.85 mm keratome. Capsulotomy forceps were then utilized to create a circular tear capsulotomy. Hydrodissection and hydrodelineation were carried out until adequate mobilization of the nucleus occurred. Phacoemulsification was then utilized to remove the dense central nucleus followed by removal of the cortical material utilizing the automated aspiration irrigation unit. Viscoat elastic was instilled into the posterior capsular bag followed by placement of a posterior chamber intraocular lens without difficulty. The residual Viscoat elastic was then removed utilizing the automated IA machine. The wound was check and found to be watertight. The patient tolerated the procedure well and the lid speculum was removed. Intracameral injection of Vigamox 0.1 mL followed by a subtenon injection of Kenalog-40 0.2 mL were administered. The patient will be seen in the a.m.
[2023-05-05 09:49] VITALS: BP 140/82; PULSE 76; RESP 12; TEMP 37.3; O2SAT 100
== END 2023-05-05 10:09 | disposition home or self-care (01) ==
PROVIDERS: PCP Internal Medicine; Visit Provider Ophthalmology
PROC: (CPT 66985; principal; 2023-05-05 09:40)
DX: H25.12 Age-related nuclear cataract, left eye (principal); H54.7 Unspecified visual loss; H40.1131 Primary open-angle glaucoma, bilateral, mild stage; H44.21 Degenerative myopia, right eye; I12.9 Hypertensive chronic kidney disease with stage 1 through stage 4 chronic kidney disease, or unspecified chronic kidney disease; N18.9 Chronic kidney disease, unspecified; R73.03 Prediabetes; E03.9 Hypothyroidism, unspecified; D64.9 Anemia, unspecified; J30.1 Allergic rhinitis due to pollen; Z79.51 Long term (current) use of inhaled steroids; Z79.899 Other long term (current) drug therapy; Z86.16 Personal history of COVID-19
CPT/HCPCS: 66984; J2250; J3010; J3301; V2788

== ENCOUNTER 2023-11-07 10:40 | Outpatient (REF) | payer MEDICARE, MEDICAID, SELFPAY ==
[2023-11-07 12:59] LABS: Glucose Random 98 mg/dL (60-115)
[2023-11-07 13:12] LABS: Folate 17.1 ng/mL (> or = 4.0); Vitamin B12 674 pg/mL (200-900)
[2023-11-08 03:16] LABS: Syphilis Screen Nonreactive (Nonreactive)
[2023-11-09 10:28] LABS: Anti Nuclear Antibody Screen NEGATIVE (NEGATIVE)
[2023-11-10 11:04] LABS: Ceruloplasmin 37 mg/dL (18-53)
[2023-11-11 16:17] LABS: Alpha-Tocopherol 13.9 mg/L (5.7-19.9); Beta-Gamma Tocopherol <1.0 mg/L (<=4.3)
[2023-11-12 11:33] LABS: Prot Elec - Albumin 4.2 g/dL (3.8-4.8); Prot Elec - Alpha1 0.3 g/dL (0.2-0.3); Prot Elec - Alpha2 0.8 g/dL (0.5-0.9); Prot Elec - Beta 1 0.4 g/dL (0.4-0.6); Prot Elec - Beta 2 0.3 g/dL (0.2-0.5)
== END 2023-11-07 10:41 | disposition home or self-care (01) ==
LOC: HO.LAB 10:40
PROVIDERS: Internal Medicine; PCP Internal Medicine; Visit Provider Psychiatry & Neurology Neurology
DX: R20.0 Anesthesia of skin (principal); G62.9 Polyneuropathy, unspecified; R41.3 Other amnesia
CPT/HCPCS: 36415; 82390; 82607; 82746; 82947; 84165; 84446; 86038; 86780

== ENCOUNTER 2024-03-04 10:28 | Outpatient (AMB) | payer MEDICARE, MEDICAID, SELFPAY ==
--- NOTE | 2024-03-04 10:22 | A.OFFVIS_ITS ---
Vital Signs 03/04/24 10:29 Height 5 ft 4 in Weight 118 lb BMI 20.3 BP 146/89 H Blood Pressure Location Lt brachial Position Sitting Pulse 64 Pulse Source Pulse Oximeter Pulse Oximetry (%) 95 Oxygen Delivery Method Room Air Intake Visit Reasons: Back Pain Allergies No Known Allergies Allergy (Verified 03/04/24 10:37) Medication List - Last Reconciled 03/04/24 by Elmira Rivero acetaminophen 1,000 mg PO TID estradiol-norethindrone acet 1-0.5 mg 1 tab PO DAILY fluticasone propionate 50 mcg/actuation 2 sprays intranasal DAILY latanoprost 0.005% 1 drp ophthalmic (eye) BEDTIME levothyroxine 1 tab PO DAILY metoprolol tartrate 25 mg PO BID olanzapine 10 mg PO BEDTIME peg 400-propylene glycol (PF) 0.4-0.3 % (Systane (PF)) 1 drp ophthalmic (eye) BID HPI Comments Details: Cyndee is a very pleasant 73-year-old female who presents the office today, accompanied by her sister, for evaluation and management of her chronic lower back pain. Patient reports she has been suffering with this pain for greater than 8 years. Denies inciting injury, trauma, accident. Endorses constant stabbing, aching pain across the lower back without radiation down either lower extremity. Endorses fatigue and heaviness in her legs with walking that improves with rest. Does find some comfort with slight forward flexed position while walking She had an MRI most recently in 2018 that showed severe central canal stenosis at L3-L4. She subsequently followed with neurosurgery at [facility] where she was offered surgery including decompression with fusion. States the surgeon did not give her good expectations for the surgery and mentioned the recovery would be difficult. Therefore they did not return to the office for follow-up and never had surgical intervention. Patient completed physical therapy without resolution of her symptoms. She is currently taking Tylenol for the pain with some improvement. Has tried nonsteroidal anti-inflammatory in the past that did not provide her any relief. She was previously prescribed tramadol from her primary care doctor though she no longer takes this. Reports at baseline she has some dizziness that is followed by Neurology with slightly unsteady gait at times. The tramadol made her feel worse so she is not interested medications of this type. Denies red flag symptoms including new loss of bowel, bladder or saddle anesthesia Pain today is rated as a 10/10, constant throughout the day. Pain is exacerbated by movements, bending, twisting, housework In terms of muscle damage condition is described as throbbing, sore, hurting, aching, exhausting, weakness, radiating, cold Pain is negatively impacting patient's enjoyment of life, general activity, walking, ability to function normally, relationships with people and mood Denies implantable devices, pacemaker or defibrillator Denies current use of anticoagulant Denies current use of nicotine, tobacco, alcohol or illicit substances [facility] Medical History (Updated 03/04/24 @ 12:47 by Marylou Lovell APRN, STRATEGIC ACCOUNTS MANAGER) Glaucoma Arthritis Back pain Hypothyroid HTN (hypertension) Vision abnormalities Bipolar 1 disorder Herniated disc Surgical History (Updated 05/05/23 @ 08:37 by Augustina Logan RN) Hx of cataract surgery H/O oral surgery Social History Are you a primary customer care professional to a significant other at home: No Do you presently have visiting nurse or other home services: No Alcohol intake: unknown Patient Tobacco Use Status: Never used Tobacco Review of Systems Const All systems reviewed & are unremarkable except as noted in HPI and below Physical Exam Vital Signs: Last Vital Signs Pulse 64 03/04/24 10:29 BP 146/89 H 03/04/24 10:29 Pulse Ox 95 03/04/24 10:29 Oxygen Delivery Method Room Air 03/04/24 10:29 BMI result Body Mass Index 20.3 General: awake, alert, oriented. Answers questions appropriately. Fully engaged in examination. Skin: warm, dry, intact HEENT: Normocephalic. Hearing intact. Cardiac: External chest normal in appearance. Respiratory: No cough, audible wheezing or stridor. Abdomen: without gross distension. MS: No obvious swelling or deformities. Able to transition from sit to stand unassisted. Ambulates with bilaterally normal heel strike and toe off Bilateral lower extremity strength of 5/5 SLR negative bilaterally ANGELICA negative bilaterally Tenderness over midline lumbar vertebrae and lumbar paraspinal muscles Facet loading positive Negative footdrop Valsalva negative Decreased range of motion, pain with flexion at 50 degrees, extension 10 degrees Nontender over bilateral PSIS Neurological: Oriented to person, place, time and situation. Thought process intact. Psychiatric: Appropriate mood and affect. Good judgment and insight. Results Reviewed Results Reviewed: MRI lumbar spine dated 12/09/2017: Impression: Severe spondylosis and central canal stenosis with a grade 1/2 anterolisthesis at L3-4 Moderate degenerative disc disease with endplate edema at L2-L3. Minimal anterior subluxation and broad-based, shallow left paracentral to subarticular disc protrusion resulting in mild mass effect upon the left L3 nerve root. Mild central canal stenosis. Milder spondylosis at L4-L5 where there is mild degree of endplate edema around a degenerative Schmorl's node in the L5 superior endplate and at L5 S1 Assessment & Plan Assessment & Plan (1) Spinal stenosis: Code(s): M48.00 - Spinal stenosis, site unspecified Category: Medical (2) Lumbar spondylosis: Code(s): M47.816 - Spondylosis without myelopathy or radiculopathy, lumbar region Category: Medical Plan Cyndee is a very pleasant 73-year-old female who presented to the office today for evaluation and management of her chronic lower back pain. Patient has exhausted conservative therapy including [id number] medications, anti-inflammatory medications, opioid medications, physical therapy all without improvement of her symptoms. History, physical exam and provocative testing consistent with lumbar spondylosis and spinal stenosis with neurogenic claudication. Patient is willing to retry physical therapy, order placed for eval and treat MRI without contrast ordered to evaluate progression of her spinal stenosis give n worsening symptoms For the lumbar spondylosis will schedule for fluoroscopy guided diagnostic L3-L4 DR L5 medial branch blocks with local anesthetic All questions and concerns were answered, patient agrees with the plan. Follow up after MRI/injections or sooner if needed Orders: Orders MR lumbar spine wo con Today M48.00 - Spinal stenosis, site unspecified PT Evaluation and Treatment Today M47.816 - Spondylosis without myelopathy or radiculopathy, lumbar region, M48.00 - Spinal stenosis, site unspecified Coding Level of Care Code New Pt Level 4 (14443) Diagnoses Spinal stenosis M48.00 Lumbar spondylosis M47.816
[2024-03-04 10:29] VITALS: BP 146/89; PULSE 64; O2SAT 95; BMI 20.3
== END 2024-03-04 11:23 | disposition home or self-care (01) ==
PROVIDERS: PCP Internal Medicine; Referring Provider Internal Medicine; Visit Provider Registered Nurse Emergency
DX: M48.00 Spinal stenosis, site unspecified (principal); M47.816 Spondylosis without myelopathy or radiculopathy, lumbar region
CPT/HCPCS: 99204

== ENCOUNTER → 2024-03-04 10:28 | Outpatient (BNVA) | payer MEDICARE, MEDICAID, SELFPAY | PROVIDERS: PCP Internal Medicine; Referring Provider Internal Medicine; Visit Provider Registered Nurse Emergency | DX: M48.00 Spinal stenosis, site unspecified (principal); M47.816 Spondylosis without myelopathy or radiculopathy, lumbar region | CPT/HCPCS: 99202 ==

== ENCOUNTER 2024-04-15 11:17 | Outpatient (AMB) | payer MEDICARE, MEDICAID, SELFPAY ==
[2024-04-15 11:28] VITALS: BP 133/83; PULSE 84; O2SAT 98
--- NOTE | 2024-04-15 11:28 | MHC.OFFVIS ---
Vital Signs 04/15/24 11:28 Weight 114 lb BP 133/83 Blood Pressure Location Rt brachial Position Sitting Pulse 84 Pulse Source Pulse Oximeter Pulse Oximetry (%) 98 Oxygen Delivery Method Room Air Intake Visit Reasons: MRI FOLLOW UP/RESULTS Allergies No Known Allergies Allergy (Verified 04/15/24 11:29) Medication List - Last Reconciled 04/15/24 by Elmira Rivero acetaminophen 1,000 mg PO TID estradiol-norethindrone acet 1-0.5 mg 1 tab PO DAILY fluticasone propionate 50 mcg/actuation 2 sprays intranasal DAILY latanoprost 0.005% 1 drp ophthalmic (eye) BEDTIME levothyroxine 1 tab PO DAILY metoprolol tartrate 25 mg PO BID olanzapine 10 mg PO BEDTIME peg 400-propylene glycol (PF) 0.4-0.3 % (Systane (PF)) 1 drp ophthalmic (eye) BID HPI Comments Details: Cyndee presents back to the office today, accompanied by her sister, for follow-up lower back pain and review of recent MRI MRI reviewed, results as per below Continues with midline lower back pain without radiation down either lower extremity. Taking Tylenol with minimal improvement She is scheduled for diagnostic L3-L4 DR L5 medial branch blocks in 1 month Prior: Cyndee is a very pleasant 73-year-old female who presents the office today, accompanied by her sister, for evaluation and management of her chronic lower back pain. Patient reports she has been suffering with this pain for greater than 8 years. Denies inciting injury, trauma, accident. Endorses constant stabbing, aching pain across the lower back without radiation down either lower extremity. Endorses fatigue and heaviness in her legs with walking that improves with rest. Does find some comfort with slight forward flexed position while walking She had an MRI most recently in 2018 that showed severe central canal stenosis at L3-L4. She subsequently followed with neurosurgery at [facility] where she was offered surgery including decompression with fusion. States the surgeon did not give her good expectations for the surgery and mentioned the recovery would be difficult. Therefore they did not return to the office for follow-up and never had surgical intervention. Patient completed physical therapy without resolution of her symptoms. She is currently taking Tylenol for the pain with some improvement. Has tried nonsteroidal anti-inflammatory in the past that did not provide her any relief. She was previously prescribed tramadol from her primary care doctor though she no longer takes this. Reports at baseline she has some dizziness that is followed by Neurology with slightly unsteady gait at times. The tramadol made her feel worse so she is not interested medications of this type. Denies red flag symptoms including new loss of bowel, bladder or saddle anesthesia Pain today is rated as a 10/10, constant throughout the day. Pain is exacerbated by movements, bending, twisting, housework In terms of muscle damage condition is described as throbbing, sore, hurting, aching, exhausting, weakness, radiating, cold Pain is negatively impacting patient's enjoyment of life, general activity, walking, ability to function normally, relationships with people and mood Denies implantable devices, pacemaker or defibrillator Denies current use of anticoagulant Denies current use of nicotine, tobacco, alcohol or illicit substances [facility] Medical History (Updated 03/04/24 @ 12:47 by Marylou Lovell APRN, RENAL MEDICINE PHYSICIAN) Glaucoma Arthritis Back pain Hypothyroid HTN (hypertension) Vision abnormalities Bipolar 1 disorder Herniated disc Surgical History (Updated 05/05/23 @ 08:37 by Augustina Logan RN) Hx of cataract surgery H/O oral surgery Social History Are you a primary palliative care coordinator to a significant other at home: No Do you presently have visiting nurse or other home services: No Alcohol intake: unknown Patient Tobacco Use Status: Never used Tobacco Review of Systems Const All systems reviewed & are unremarkable except as noted in HPI and below Physical Exam Vital Signs: Last Vital Signs Pulse 84 04/15/24 11:28 BP 133/83 04/15/24 11:28 Pulse Ox 98 04/15/24 11:28 Oxygen Delivery Method Room Air 04/15/24 11:28 General: awake, alert, oriented. Answers questions appropriately. Fully engaged in examination. Skin: warm, dry, intact HEENT: Normocephalic. Hearing intact. Cardiac: External chest normal in appearance. Respiratory: No cough, audible wheezing or stridor. Abdomen: without gross distension. MS: No obvious swelling or deformities. Able to transition from sit to stand unassisted. Ambulates with bilaterally normal heel strike and toe off Bilateral lower extremity strength of 5/5 SLR negative bilaterally Tenderness over midline lumbar vertebrae and lumbar paraspinal muscles Facet loading positive Nontender over bilateral PSIS Neurological: Oriented to person, place, time and situation. Thought process intact. Psychiatric: Appropriate mood and affect. Good judgment and insight. Results Reviewed Results Reviewed: 03/29/24 MRI LS FINDINGS: Moderate degenerative changes in the lumbar spine present. There is mild anterolisthesis L3 on L4 and L4 on L5. Bone marrow signal is within normal limits, and no suspicious osseous lesion is identified. Conus medullaris is unremarkable. Paraspinal soft tissues and visualized portions of the abdomen and pelvis are unremarkable. At L1-2 there is no significant disc herniation or protrusion. No central canal or neural foraminal stenosis is demonstrated. L2-3 level reveals broad-based disc protrusion and moderate facet arthrosis resulting in moderate bilateral subarticular recess narrowing and contact descending nerve roots. There is mild/moderate bilateral neural foraminal narrowing without nerve root impingement. L3-4 level reveals diffuse annular bulge and advanced facet arthrosis resulting in advanced central canal stenosis. There is advanced right neural foraminal narrowing with impingement of exiting nerve root. Moderate left neural foraminal encroachment without discreet nerve root impingement seen. L4-5 level reveals diffuse annular bulge and advanced facet arthrosis resulting in moderate to advanced central canal stenosis. There is advanced bilateral neural foraminal narrowing with impingement exiting nerve roots bilaterally. L5-S1 level reveals diffuse annular bulge and moderate facet arthrosis resulting in mild bilateral subarticular recess narrowing and contact descending nerve roots bilaterally. There is mild to moderate bilateral neural foraminal narrowing without appreciable nerve root impingement. Synovial cyst seen posterior to the facet joints bilaterally right greater than left approximately 2 to 5 mm in size. IMPRESSION: 1. Degenerative changes of the lumbar spine with multilevel areas of moderate to advanced central canal stenosis and neural foraminal narrowing with associated exiting nerve root impingement. 2. L5-S1 level bilateral subarticular recess narrowing with mild contact descending nerve roots bilaterally. 3. L2-3 level bilateral subarticular recess narrowing with mild contact descending nerve roots. 4. L3-4 level right neural foraminal narrowing with impingement exiting right L3 nerve root. 5. L4-5 level bilateral neural foraminal narrowing with impingement exiting nerve roots bilaterally. MRI lumbar spine dated 12/09/2017: Impression: Severe spondylosis and central canal stenosis with a grade 1/2 anterolisthesis at L3-4 Moderate degenerative disc disease with endplate edema at L2-L3. Minimal anterior subluxation and broad-based, shallow left paracentral to subarticular disc protrusion resulting in mild mass effect upon the left L3 nerve root. Mild central canal stenosis. Milder spondylosis at L4-L5 where there is mild degree of endplate edema around a degenerative Schmorl's node in the L5 superior endplate and at L5 S1 Assessment & Plan Assessment & Plan (1) Spinal stenosis: Code(s): M48.00 - Spinal stenosis, site unspecified Category: Medical (2) Lumbar spondylosis: Code(s): M47.816 - Spondylosis without myelopathy or radiculopathy, lumbar region Category: Medical Plan Cyndee presented to the office today for follow-up chronic lower back pain and review of recent MRI. MRI reviewed, results as per above Patient has exhausted conservative therapy including [id number] medications, anti-inflammatory medications, opioid medications, physical therapy all without improvement of her symptoms. Continue with plan for fluoroscopy guided diagnostic L3-L4 DR L5 medial branch blocks with local anesthetic scheduled in 1 month. If negative results with the diagnostic injections consider right L3-4 transforaminal epidural steroid injection with local anesthetic All questions and concerns were answered, patient agrees with the plan. Follow up after injections or sooner if needed Coding Level of Care Code Tele Est Pt Level 3 (89289) Complex EM visit Add On G2211 Diagnoses Spinal stenosis M48.00 Lumbar spondylosis M47.816
== END 2024-04-15 12:12 | disposition home or self-care (01) ==
PROVIDERS: PCP Internal Medicine; Visit Provider Registered Nurse Emergency
DX: M48.00 Spinal stenosis, site unspecified (principal); M47.816 Spondylosis without myelopathy or radiculopathy, lumbar region
CPT/HCPCS: 99213; G2211

== ENCOUNTER → 2024-04-15 11:17 | Outpatient (BNVA) | payer MEDICARE, MEDICAID, SELFPAY | PROVIDERS: PCP Internal Medicine; Visit Provider Registered Nurse Emergency | DX: M48.00 Spinal stenosis, site unspecified (principal); M47.816 Spondylosis without myelopathy or radiculopathy, lumbar region | CPT/HCPCS: 99212 ==

== ENCOUNTER 2024-05-18 06:13 | Outpatient (REF) | payer MEDICARE, MEDICAID, SELFPAY | END 2024-05-18 06:14 | disposition home or self-care (01) | LOC: CF 06:13 | PROVIDERS: Visit Provider Anesthesiology | DX: M47.816 Spondylosis without myelopathy or radiculopathy, lumbar region (principal); M48.00 Spinal stenosis, site unspecified | CPT/HCPCS: 64493; 64494; J2003; J2795; Q9967 ==

== ENCOUNTER 2024-05-18 07:31 | Outpatient (AMB) | payer MEDICARE, MEDICAID, SELFPAY ==
[2024-05-18 07:47] VITALS: BP 168/101; PULSE 68; RESP 16; O2SAT 99
[2024-05-18 08:20] VITALS: BP 161/105; PULSE 68; RESP 17; O2SAT 100
--- NOTE | 2024-05-18 08:24 | MHC.OFFVIS ---
Vital Signs 05/18/24 07:47 05/18/24 08:20 BP 168/101 H 161/105 H Blood Pressure Location Rt brachial Rt brachial Position Sitting Sitting Respiration 16 17 Pulse 68 68 Pulse Source Pulse Oximeter Pulse Oximeter Pulse Oximetry (%) 99 100 Oxygen Delivery Method Room Air Room Air Comment Pre-op Post-op Intake Visit Reasons: BILATERAL DIAGNOSTIC L3, L4, DRL5 MBB Allergies No Known Allergies Allergy (Verified 05/18/24 08:29) Medication List - Last Reconciled 05/18/24 by Elmira Rivero acetaminophen 1,000 mg PO TID estradiol-norethindrone acet 1-0.5 mg 1 tab PO DAILY fluticasone propionate 50 mcg/actuation 2 sprays intranasal DAILY latanoprost 0.005% 1 drp ophthalmic (eye) BEDTIME levothyroxine 1 tab PO DAILY metoprolol tartrate 25 mg PO BID olanzapine 10 mg PO BEDTIME peg 400-propylene glycol (PF) 0.4-0.3 % (Systane (PF)) 1 drp ophthalmic (eye) BID PFSH Medical History (Updated 03/04/24 @ 12:47 by Marylou Lovell APRN, BREAD DISTRIBUTOR) Glaucoma Arthritis Back pain Hypothyroid HTN (hypertension) Vision abnormalities Bipolar 1 disorder Herniated disc Surgical History (Updated 05/05/23 @ 08:37 by Augustina Logan RN) Hx of cataract surgery H/O oral surgery Social History Are you a primary tire care manager to a significant other at home: No Do you presently have visiting nurse or other home services: No Alcohol intake: unknown Patient Tobacco Use Status: Never used Tobacco Physical Exam Vital Signs: Last Vital Signs Pulse 68 05/18/24 08:20 Resp 17 05/18/24 08:20 BP 161/105 H 05/18/24 08:20 Pulse Ox 100 05/18/24 08:20 Oxygen Delivery Method Room Air 05/18/24 08:20 Assessment & Plan Assessment & Plan (1) Spinal stenosis: Code(s): M48.00 - Spinal stenosis, site unspecified Category: Medical (2) Lumbar spondylosis: Code(s): M47.816 - Spondylosis without myelopathy or radiculopathy, lumbar region Category: Medical Plan: Diagnostic medial branch block L3,L4 dorsal ramus L5 bilateral.? ? ?Informed consent was explained to the patient. All questions were explained and? answered.? The patient was taken inside the operating room where she was positioned prone on the operating table. Time-out was performed delineating correct site, side, the nature of the procedure, patient's allergy, . All operating room staff was participating in OR time-out procedure. ? ? The lower back was prepped with ChloraPrep and draped with sterile towels.? C-arm was brought over the operating field and sq picture of L4-, L5 vertebra and S1 AREA were delineated on the screen.? the images were difficult to assess because of severe spondylosis and large endplate spurrs obscurining the view. Point of interest were delineated as confluence of superior articular process of L4 and L5 vertebra bilaterally with corresponding transverse processes as well as confluence of the sacral alae bilaterally with superior articular process of S1.? The projection of the point of interest to the skin were injected with the small amount of local anesthetic lidocaine 2% mixed with ropivacaine 0.5% 1-1 approcimately 1 cc.? After that 22 gauge 3.5 inch spinal needle was driven sequentially to the points of interest in tunnel vision fashion. After needles gently contacted the bone at the point of interests the needle was injected with small amount of the contrast.? The injection of the contrast did not demonstrate any intravascular or intrathecal spread of the contrast.? After that injection of the? ropivacaine 0.5%-1cc was performed at each needle location.??after that the needles were removed and Bandaids were applied. ? Upon completion of the injections? needle was? removed and sterile Band-Aids were applied.? The patient tolerated procedure very well. Plan Cyndee presented to the office today for follow-up chronic lower back pain and review of recent MRI. MRI reviewed, results as per above Patient has exhausted conservative therapy including [id number] medications, anti-inflammatory medications, opioid medications, physical therapy all without improvement of her symptoms. Continue with plan for fluoroscopy guided diagnostic L3-L4 DR L5 medial branch blocks with local anesthetic scheduled in 1 month. If negative results with the diagnostic injections consider right L3-4 transforaminal epidural steroid injection with local anesthetic All questions and concerns were answered, patient agrees with the plan. Follow up after injections or sooner if needed Orders: Orders FL guidance in treatment room Today M47.816 - Spondylosis without myelopathy or radiculopathy, lumbar region Coding Level of Care Code Procedure Only Diagnoses Spinal stenosis M48.00 Lumbar spondylosis M47.816
== END 2024-05-18 08:40 | disposition home or self-care (01) ==
LOC: HO.PMCPRC 07:31
PROVIDERS: PCP Internal Medicine; Visit Provider Anesthesiology
DX: M47.816 Spondylosis without myelopathy or radiculopathy, lumbar region (principal); M48.00 Spinal stenosis, site unspecified
CPT/HCPCS: 64493; 64494

== ENCOUNTER 2024-05-21 10:18 | Outpatient (AMB) | payer MEDICARE, MEDICAID, SELFPAY ==
[2024-05-21 10:30] VITALS: BP 162/92; PULSE 73; O2SAT 97; BMI 19.6
--- NOTE | 2024-05-21 10:30 | MHC.OFFVIS ---
Vital Signs 05/21/24 10:30 Height 5 ft 4 in Weight 114 lb BMI 19.6 BP 162/92 H Blood Pressure Location Rt brachial Position Sitting Pulse 73 Pulse Source Pulse Oximeter Pulse Oximetry (%) 97 Oxygen Delivery Method Room Air Intake Visit Reasons: BILATERAL DIAGNOSTIC L3, L4, DRL5 MBB Allergies No Known Allergies Allergy (Verified 05/21/24 10:31) Medication List - Last Reconciled 05/21/24 by Elmira Rivero acetaminophen 1,000 mg PO TID estradiol-norethindrone acet 1-0.5 mg 1 tab PO DAILY fluticasone propionate 50 mcg/actuation 2 sprays intranasal DAILY latanoprost 0.005% 1 drp ophthalmic (eye) BEDTIME levothyroxine 1 tab PO DAILY metoprolol tartrate 25 mg PO BID olanzapine 10 mg PO BEDTIME peg 400-propylene glycol (PF) 0.4-0.3 % (Systane (PF)) 1 drp ophthalmic (eye) BID HPI Comments Details: Patient presents back to the office today for follow-up, 3 days status post bilateral diagnostic L3-L4 DR L5 medial branch blocks She reports pain improved from 10/10 down to 8/10. Denies significant improvement of her symptoms. Continues with elevated blood pressure, she has follow up with her primary care doctor today to discuss Continues with midline lower back pain without radiation down either lower extremity though she does endorse fatigue and heaviness in her legs with walking that improves with rest. Prior: Cyndee presents back to the office today, accompanied by her sister, for follow-up lower back pain and review of recent MRI MRI reviewed, results as per below Continues with midline lower back pain without radiation down either lower extremity. Taking Tylenol with minimal improvement She is scheduled for diagnostic L3-L4 DR L5 medial branch blocks in 1 month Prior: Cyndee is a very pleasant 73-year-old female who presents the office today, accompanied by her sister, for evaluation and management of her chronic lower back pain. Patient reports she has been suffering with this pain for greater than 8 years. Denies inciting injury, trauma, accident. Endorses constant stabbing, aching pain across the lower back without radiation down either lower extremity. Endorses fatigue and heaviness in her legs with walking that improves with rest. Does find some comfort with slight forward flexed position while walking She had an MRI most recently in 2018 that showed severe central canal stenosis at L3-L4. She subsequently followed with neurosurgery at [facility] where she was offered surgery including decompression with fusion. States the surgeon did not give her good expectations for the surgery and mentioned the recovery would be difficult. Therefore they did not return to the office for follow-up and never had surgical intervention. Patient completed physical therapy without resolution of her symptoms. She is currently taking Tylenol for the pain with some improvement. Has tried nonsteroidal anti-inflammatory in the past that did not provide her any relief. She was previously prescribed tramadol from her primary care doctor though she no longer takes this. Reports at baseline she has some dizziness that is followed by Neurology with slightly unsteady gait at times. The tramadol made her feel worse so she is not interested medications of this type. Denies red flag symptoms including new loss of bowel, bladder or saddle anesthesia Pain today is rated as a 10/10, constant throughout the day. Pain is exacerbated by movements, bending, twisting, housework In terms of muscle damage condition is described as throbbing, sore, hurting, aching, exhausting, weakness, radiating, cold Pain is negatively impacting patient's enjoyment of life, general activity, walking, ability to function normally, relationships with people and mood Denies implantable devices, pacemaker or defibrillator Denies current use of anticoagulant Denies current use of nicotine, tobacco, alcohol or illicit substances [facility] Medical History (Updated 03/04/24 @ 12:47 by Marylou Lovell APRN, NOTCHING MACHINE OPERATOR) Glaucoma Arthritis Back pain Hypothyroid HTN (hypertension) Vision abnormalities Bipolar 1 disorder Herniated disc Surgical History (Updated 05/05/23 @ 08:37 by Augustina Logan RN) Hx of cataract surgery H/O oral surgery Social History Are you a primary progressive care nurse to a significant other at home: No Do you presently have visiting nurse or other home services: No Alcohol intake: unknown Patient Tobacco Use Status: Never used Tobacco Review of Systems Const All systems reviewed & are unremarkable except as noted in HPI and below Physical Exam Vital Signs: Last Vital Signs Pulse 73 05/21/24 10:30 BP 162/92 H 05/21/24 10:30 Pulse Ox 97 05/21/24 10:30 Oxygen Delivery Method Room Air 05/21/24 10:30 BMI result Body Mass Index 19.6 General: awake, alert, oriented. Answers questions appropriately. Fully engaged in examination. Skin: warm, dry, intact HEENT: Normocephalic. Hearing intact. Cardiac: External chest normal in appearance. Respiratory: No cough, audible wheezing or stridor. Abdomen: without gross distension. MS: No obvious swelling or deformities. Able to transition from sit to stand unassisted. Ambulates with bilaterally normal heel strike and toe off Neurological: Oriented to person, place, time and situation. Thought process intact. Psychiatric: Appropriate mood and affect. Good judgment and insight. Results Reviewed Results Reviewed: 03/29/24 MRI LS FINDINGS: Moderate degenerative changes in the lumbar spine present. There is mild anterolisthesis L3 on L4 and L4 on L5. Bone marrow signal is within normal limits, and no suspicious osseous lesion is identified. Conus medullaris is unremarkable. Paraspinal soft tissues and visualized portions of the abdomen and pelvis are unremarkable. At L1-2 there is no significant disc herniation or protrusion. No central canal or neural foraminal stenosis is demonstrated. L2-3 level reveals broad-based disc protrusion and moderate facet arthrosis resulting in moderate bilateral subarticular recess narrowing and contact descending nerve roots. There is mild/moderate bilateral neural foraminal narrowing without nerve root impingement. L3-4 level reveals diffuse annular bulge and advanced facet arthrosis resulting in advanced central canal stenosis. There is advanced right neural foraminal narrowing with impingement of exiting nerve root. Moderate left neural foraminal encroachment without discreet nerve root impingement seen. L4-5 level reveals diffuse annular bulge and advanced facet arthrosis resulting in moderate to advanced central canal stenosis. There is advanced bilateral neural foraminal narrowing with impingement exiting nerve roots bilaterally. L5-S1 level reveals diffuse annular bulge and moderate facet arthrosis resulting in mild bilateral subarticular recess narrowing and contact descending nerve roots bilaterally. There is mild to moderate bilateral neural foraminal narrowing without appreciable nerve root impingement. Synovial cyst seen posterior to the facet joints bilaterally right greater than left approximately 2 to 5 mm in size. IMPRESSION: 1. Degenerative changes of the lumbar spine with multilevel areas of moderate to advanced central canal stenosis and neural foraminal narrowing with associated exiting nerve root impingement. 2. L5-S1 level bilateral subarticular recess narrowing with mild contact descending nerve roots bilaterally. 3. L2-3 level bilateral subarticular recess narrowing with mild contact descending nerve roots. 4. L3-4 level right neural foraminal narrowing with impingement exiting right L3 nerve root. 5. L4-5 level bilateral neural foraminal narrowing with impingement exiting nerve roots bilaterally. MRI lumbar spine dated 12/09/2017: Impression: Severe spondylosis and central canal stenosis with a grade 1/2 anterolisthesis at L3-4 Moderate degenerative disc disease with endplate edema at L2-L3. Minimal anterior subluxation and broad-based, shallow left paracentral to subarticular disc protrusion resulting in mild mass effect upon the left L3 nerve root. Mild central canal stenosis. Milder spondylosis at L4-L5 where there is mild degree of endplate edema around a degenerative Schmorl's node in the L5 superior endplate and at L5 S1 Assessment & Plan Assessment & Plan (1) Spinal stenosis: Code(s): M48.00 - Spinal stenosis, site unspecified Category: Medical (2) Lumbar spondylosis: Code(s): M47.816 - Spondylosis without myelopathy or radiculopathy, lumbar region Category: Medical Plan Cyndee presented back to the office today for follow-up, 3 days status post bilateral diagnostic L3-L4 DR L5 medial branch blocks with local anesthetic Denies significant improvement in her pain after the injections. Spondylosis does not appear to be her pain generator, she is most likely suffering from pain secondary to spinal stenosis with neurogenic claudication. Patient has exhausted conservative therapy including [id number] medications, anti-inflammatory medications, opioid medications, physical therapy all without improvement of her symptoms. Will schedule for bilateral L3-4 transforaminal epidural steroid injection with local anesthetic. If no improvement in her symptoms will consider referral for neurosurgical evaluation. Patient was advised that she needs to get her blood pressure under control before we can proceed with these injections. She verbalized understanding and agrees with the plan. All questions and concerns were answered. Follow up after injections or sooner if needed Coding Level of Care Code Est Pt Level 3 (43119) Complex EM visit Add On G2211 Diagnoses Spinal stenosis M48.00 Lumbar spondylosis M47.816
== END 2024-05-21 11:08 | disposition home or self-care (01) ==
PROVIDERS: PCP Internal Medicine; Visit Provider Registered Nurse Emergency
DX: M48.00 Spinal stenosis, site unspecified (principal); M47.816 Spondylosis without myelopathy or radiculopathy, lumbar region
CPT/HCPCS: 99213; G2211

== ENCOUNTER → 2024-05-21 10:18 | Outpatient (BNVA) | payer MEDICARE, MEDICAID, SELFPAY | PROVIDERS: PCP Internal Medicine; Visit Provider Registered Nurse Emergency | DX: M48.00 Spinal stenosis, site unspecified (principal); M47.816 Spondylosis without myelopathy or radiculopathy, lumbar region | CPT/HCPCS: 99212 ==

== ENCOUNTER 2024-07-16 09:54 | Outpatient (AMB) | payer MEDICARE, MEDICAID, SELFPAY ==
--- NOTE | 2024-07-16 09:58 | MHC.OFFVIS ---
Vital Signs 07/16/24 10:00 Height 5 ft 4 in Weight 120 lb BMI 20.6 BP 128/76 Blood Pressure Location Lt brachial Position Sitting Respiration 16 Pulse 62 Pulse Source Pulse Oximeter Pulse Oximetry (%) 99 Oxygen Delivery Method Room Air Intake Visit Reasons: Follow up/patient concerns Allergies No Known Allergies Allergy (Verified 07/16/24 10:01) Medication List - Last Reconciled 07/16/24 by Marylou Lovell APRN, GEOSPATIAL PROGRAM MANAGEMENT OFFICER acetaminophen 1,000 mg PO TID estradiol-norethindrone acet 1-0.5 mg 1 tab PO DAILY fluticasone propionate 50 mcg/actuation 2 sprays intranasal DAILY latanoprost 0.005% 1 drp ophthalmic (eye) BEDTIME levothyroxine 1 tab PO DAILY metoprolol tartrate 50 mg PO BID olanzapine 15 mg PO BEDTIME peg 400-propylene glycol (PF) 0.4-0.3 % (Systane (PF)) 1 drp ophthalmic (eye) BID HPI Comments Details: Cyndee presents back to the office today, accompanied by her sister, for follow-up lower back pain Since last visit she has had adjustments made to her medications by her PCP. Her blood pressure today is 128/76. Denies any recent elevated blood pressures. Endorses midline lower back pain without radiation down either lower extremity. She does suffer from fatigue and heaviness in her legs with walking that improves with rest. She would like to proceed with steroid injection that was discussed at last visit another blood pressure is controlled Denies any new injuries. Denies red flag symptoms including new loss of bowel, bladder or saddle anesthesia Prior: Patient presents back to the office today for follow-up, 3 days status post bilateral diagnostic L3-L4 DR L5 medial branch blocks She reports pain improved from 10/10 down to 8/10. Denies significant improvement of her symptoms. Continues with elevated blood pressure, she has follow up with her primary care doctor today to discuss Continues with midline lower back pain without radiation down either lower extremity though she does endorse fatigue and heaviness in her legs with walking that improves with rest. Prior: Cyndee presents back to the office today, accompanied by her sister, for follow-up lower back pain and review of recent MRI MRI reviewed, results as per below Continues with midline lower back pain without radiation down either lower extremity. Taking Tylenol with minimal improvement She is scheduled for diagnostic L3-L4 DR L5 medial branch blocks in 1 month Prior: Cyndee is a very pleasant 73-year-old female who presents the office today, accompanied by her sister, for evaluation and management of her chronic lower back pain. Patient reports she has been suffering with this pain for greater than 8 years. Denies inciting injury, trauma, accident. Endorses constant stabbing, aching pain across the lower back without radiation down either lower extremity. Endorses fatigue and heaviness in her legs with walking that improves with rest. Does find some comfort with slight forward flexed position while walking She had an MRI most recently in 2018 that showed severe central canal stenosis at L3-L4. She subsequently followed with neurosurgery at [facility] where she was offered surgery including decompression with fusion. States the surgeon did not give her good expectations for the surgery and mentioned the recovery would be difficult. Therefore they did not return to the office for follow-up and never had surgical intervention. Patient completed physical therapy without resolution of her symptoms. She is currently taking Tylenol for the pain with some improvement. Has tried nonsteroidal anti-inflammatory in the past that did not provide her any relief. She was previously prescribed tramadol from her primary care doctor though she no longer takes this. Reports at baseline she has some dizziness that is followed by Neurology with slightly unsteady gait at times. The tramadol made her feel worse so she is not interested medications of this type. Denies red flag symptoms including new loss of bowel, bladder or saddle anesthesia Pain today is rated as a 10/10, constant throughout the day. Pain is exacerbated by movements, bending, twisting, housework In terms of muscle damage condition is described as throbbing, sore, hurting, aching, exhausting, weakness, radiating, cold Pain is negatively impacting patient's enjoyment of life, general activity, walking, ability to function normally, relationships with people and mood Denies implantable devices, pacemaker or defibrillator Denies current use of anticoagulant Denies current use of nicotine, tobacco, alcohol or illicit substances [facility] Medical History (Updated 03/04/24 @ 12:47 by Marylou Lovell APRN, GEOSPATIAL PROGRAM MANAGEMENT OFFICER) Glaucoma Arthritis Back pain Hypothyroid HTN (hypertension) Vision abnormalities Bipolar 1 disorder Herniated disc Surgical History (Updated 05/05/23 @ 08:37 by Augustina Logan RN) Hx of cataract surgery H/O oral surgery Social History Are you a primary assisted living care manager to a significant other at home: No Do you presently have visiting nurse or other home services: No Alcohol intake: unknown Patient Tobacco Use Status: Never used Tobacco Review of Systems Const All systems reviewed & are unremarkable except as noted in HPI and below Physical Exam Vital Signs: Last Vital Signs Pulse 62 07/16/24 10:00 Resp 16 07/16/24 10:00 BP 128/76 07/16/24 10:00 Pulse Ox 99 07/16/24 10:00 Oxygen Delivery Method Room Air 07/16/24 10:00 BMI result Body Mass Index 20.6 General: awake, alert, oriented. Answers questions appropriately. Fully engaged in examination. Skin: warm, dry, intact HEENT: Normocephalic. Hearing intact. Cardiac: External chest normal in appearance. Respiratory: No cough, audible wheezing or stridor. Abdomen: without gross distension. MS: No obvious swelling or deformities. Able to transition from sit to stand unassisted. Ambulates with bilaterally normal heel strike and toe off Neurological: Oriented to person, place, time and situation. Thought process intact. Psychiatric: Appropriate mood and affect. Good judgment and insight. Results Reviewed Results Reviewed: 03/29/24 MRI LS FINDINGS: Moderate degenerative changes in the lumbar spine present. There is mild anterolisthesis L3 on L4 and L4 on L5. Bone marrow signal is within normal limits, and no suspicious osseous lesion is identified. Conus medullaris is unremarkable. Paraspinal soft tissues and visualized portions of the abdomen and pelvis are unremarkable. At L1-2 there is no significant disc herniation or protrusion. No central canal or neural foraminal stenosis is demonstrated. L2-3 level reveals broad-based disc protrusion and moderate facet arthrosis resulting in moderate bilateral subarticular recess narrowing and contact descending nerve roots. There is mild/moderate bilateral neural foraminal narrowing without nerve root impingement. L3-4 level reveals diffuse annular bulge and advanced facet arthrosis resulting in advanced central canal stenosis. There is advanced right neural foraminal narrowing with impingement of exiting nerve root. Moderate left neural foraminal encroachment without discreet nerve root impingement seen. L4-5 level reveals diffuse annular bulge and advanced facet arthrosis resulting in moderate to advanced central canal stenosis. There is advanced bilateral neural foraminal narrowing with impingement exiting nerve roots bilaterally. L5-S1 level reveals diffuse annular bulge and moderate facet arthrosis resulting in mild bilateral subarticular recess narrowing and contact descending nerve roots bilaterally. There is mild to moderate bilateral neural foraminal narrowing without appreciable nerve root impingement. Synovial cyst seen posterior to the facet joints bilaterally right greater than left approximately 2 to 5 mm in size. IMPRESSION: 1. Degenerative changes of the lumbar spine with multilevel areas of moderate to advanced central canal stenosis and neural foraminal narrowing with associated exiting nerve root impingement. 2. L5-S1 level bilateral subarticular recess narrowing with mild contact descending nerve roots bilaterally. 3. L2-3 level bilateral subarticular recess narrowing with mild contact descending nerve roots. 4. L3-4 level right neural foraminal narrowing with impingement exiting right L3 nerve root. 5. L4-5 level bilateral neural foraminal narrowing with impingement exiting nerve roots bilaterally. MRI lumbar spine dated 12/09/2017: Impression: Severe spondylosis and central canal stenosis with a grade 1/2 anterolisthesis at L3-4 Moderate degenerative disc disease with endplate edema at L2-L3. Minimal anterior subluxation and broad-based, shallow left paracentral to subarticular disc protrusion resulting in mild mass effect upon the left L3 nerve root. Mild central canal stenosis. Milder spondylosis at L4-L5 where there is mild degree of endplate edema around a degenerative Schmorl's node in the L5 superior endplate and at L5 S1 Assessment & Plan Assessment & Plan (1) Spinal stenosis: Code(s): M48.00 - Spinal stenosis, site unspecified Category: Medical (2) Lumbar spondylosis: Code(s): M47.816 - Spondylosis without myelopathy or radiculopathy, lumbar region Category: Medical Plan Cyndee presented back to the office today for follow-up No improvement with previous medial branch blocks, she is most likely suffering from pain secondary to spinal stenosis with neurogenic claudication. Patient has exhausted conservative therapy including [id number] medications, anti-inflammatory medications, opioid medications, physical therapy all without improvement of her symptoms. Will schedule for bilateral L3-4 transforaminal epidural steroid injection with local anesthetic. If no improvement in her symptoms will consider referral for neurosurgical evaluation. All questions and concerns were answered. Follow up after injections, sooner if needed Coding Level of Care Code Est Pt Level 3 (39331) Complex EM visit Add On G2211 Diagnoses Spinal stenosis M48.00 Lumbar spondylosis M47.816
[2024-07-16 10:00] VITALS: BP 128/76; PULSE 62; RESP 16; O2SAT 99; BMI 20.6
== END 2024-07-16 10:39 | disposition home or self-care (01) ==
PROVIDERS: PCP Internal Medicine; Visit Provider Registered Nurse Emergency
DX: M48.00 Spinal stenosis, site unspecified (principal); M47.816 Spondylosis without myelopathy or radiculopathy, lumbar region
CPT/HCPCS: 99213; G2211

== ENCOUNTER → 2024-07-16 09:54 | Outpatient (BNVA) | payer MEDICARE, MEDICAID, SELFPAY | PROVIDERS: PCP Internal Medicine; Visit Provider Registered Nurse Emergency | DX: M48.00 Spinal stenosis, site unspecified (principal); M47.816 Spondylosis without myelopathy or radiculopathy, lumbar region | CPT/HCPCS: 99212 ==

== ENCOUNTER 2024-09-08 09:06 | Outpatient (REF) | payer MEDICARE, MEDICAID, SELFPAY ==
[2024-09-08 09:42] LABS: MANUAL DIFF FLAG NO
[2024-09-08 09:58] LABS: Basophils Absolute Auto 0.1 X10*3/uL (0.0-0.2); Basophils Percent Auto 0.6 % (0-2); Eosinophils Absolute Auto 0.2 X10*3/uL (0.0-0.4); Eosinophils Percent Auto 2.3 % (0-4); Hematocrit 39.6 % (37.0-47.0); Imm Gran Abs Auto 0.03 X10*3/uL (0.00-0.03); Imm Gran Pct Auto 0.3 % (0.0-0.4); Lymphocytes Absolute Auto 1.5 X10*3/uL (1.2-4.9); Mean Corpuscular HGB Conc 32.8 g/dl (31.0-35.0); Mean Corpuscular Hemoglobin 31.3 pg (27.0-33.0); Mean Corpuscular Volume 95.2 fL (80.0-98.0); Mean Platelet Volume 10.8 fL (9.4-12.3); Monocytes Absolute Auto 0.5 X10*3/uL (0.1-1.2); Monocytes Percent Auto 5.4 % (2-11); Neutrophils Percent Auto 75.4 % (45-73); Platelet Count 252 X10*3/uL (160-400); Red Blood Count 4.16 X10*6/uL (4.20-5.50); Red Cell Distribution Width 12.8 % (11.0-16.0); White Blood Count 9.2 X10*3/uL (4.8-10.8)
[2024-09-08 10:41] LABS: Alanine Aminotransferase 25 U/L (0-31); Albumin Level 4.1 g/dL (3.5-5.0); Alkaline Phosphatase 53 U/L (39-117); Anion Gap 12 (12-20); Aspartate Amino Transferase 18 U/L (5-31); Bilirubin Total 0.3 mg/dL (0.0-1.0); Blood Urea Nitrogen 29 mg/dL (9-16); Calcium 10.2 mg/dL (8.4-10.2); Carbon Dioxide 25 mmol/L (22-29); Chloride 113 mmol/L (96-108); Cholesterol 183 mg/dL (<200); Estimated Glomerular Filt Rate 39; Glucose Fasting 97 mg/dL (60-99); HDL Cholesterol 63 mg/dL (>40); LDL Cholesterol Calculated 100 mg/dL (<100); Potassium 4.6 mmol/L (3.3-5.1); Sodium 145 mmol/L (135-145); Total Protein 7.6 g/dL (6.5-8.0); Triglycerides 103 mg/dL (<150)
[2024-09-08 10:50] LABS: Free T4 (Free Thyroxine) 1.09 ng/dL (0.71-1.85); Vitamin D 25-OH Total 68.1 ng/mL (>30)
== END 2024-09-08 09:07 | disposition home or self-care (01) ==
LOC: HO.LAB 09:06
PROVIDERS: Visit Provider Internal Medicine
DX: E03.9 Hypothyroidism, unspecified (principal); I10 Essential (primary) hypertension; F31.9 Bipolar disorder, unspecified; R79.82 Elevated C-reactive protein (CRP)
CPT/HCPCS: 36415; 80053; 80061; 82306; 84439; 85025

== ENCOUNTER 2024-09-28 06:21 | Outpatient (REF) | payer MEDICARE, MEDICAID, SELFPAY ==
--- NOTE | ~2024-09-28 | FL_ITS ---
EXAMINATION: FL GUIDANCE ONLY HISTORY: M48.00 - Spinal stenosis, site unspecified COMPARISON: None available. TECHNIQUE: Fluoroscopy time: 0.6 minutes. Cumulative Dose: 4.92 mGy. DAP: 0.0533 mGym2 Images: 2. FINDINGS: Images demonstrate needles and contrast material in the lumbar region. FL/FL guidance in treatment room IMPRESSION: Fluoroscopy during procedure. Please see procedure report for additional information. Electronically signed by: Nigel Frank MD 09/28/2024 11:42 AM EDT
== END 2024-09-28 06:22 | disposition home or self-care (01) ==
LOC: CF 06:21
PROVIDERS: Visit Provider Anesthesiology
DX: M48.00 Spinal stenosis, site unspecified (principal); M54.16 Radiculopathy, lumbar region
CPT/HCPCS: 64483; J1100; J2003; Q9967

== ENCOUNTER 2024-09-28 10:42 | Outpatient (AMB) | payer MEDICARE, MEDICAID, SELFPAY ==
[2024-09-28 10:47] VITALS: BP 135/90; PULSE 62; O2SAT 99
--- NOTE | 2024-09-28 10:47 | MHC.OFFVIS ---
Vital Signs 09/28/24 10:47 09/28/24 11:25 BP 135/90 H 135/82 Blood Pressure Location Lt brachial Lt brachial Position Sitting Sitting Pulse 62 61 Pulse Source Pulse Oximeter Pulse Oximeter Pulse Oximetry (%) 99 97 Oxygen Delivery Method Room Air Room Air Comment Pre-Procedure Post-Procedure Intake Visit Reasons: BILATERAL L3, L4 TFESI Allergies No Known Allergies Allergy (Verified 07/16/24 10:01) PFSH Medical History (Updated 09/29/24 @ 07:41 by Denis Griffin MD) Glaucoma Arthritis Back pain Hypothyroid HTN (hypertension) Vision abnormalities Bipolar 1 disorder Herniated disc Surgical History (Updated 05/05/23 @ 08:37 by Augustina Logan RN) Hx of cataract surgery H/O oral surgery Social History Are you a primary child care counselor to a significant other at home: No Do you presently have visiting nurse or other home services: No Alcohol intake: unknown Patient Tobacco Use Status: Never used Tobacco Physical Exam Vital Signs: Last Vital Signs Pulse 61 09/28/24 11:25 BP 135/82 09/28/24 11:25 Pulse Ox 97 09/28/24 11:25 Oxygen Delivery Method Room Air 09/28/24 11:25 Assessment & Plan Assessment & Plan (1) Spinal stenosis: Code(s): M48.00 - Spinal stenosis, site unspecified Category: Medical (2) Radiculopathy, lumbar region: Code(s): M54.16 - Radiculopathy, lumbar region Category: Medical Plan Bilateral transforaminal epidural steroid injection L3-L4. Informed consent was thoroughly explained to the patient. Risks and benefits including bleeding, infection, peripheral nerve damage, spinal cord damage, headache were explained to the patient. Patient expressed understanding. She signed informed consent. She was taken to the operating room and positioned prone on operating table. Her lower back was prepped with ChloraPrep and draped with self adhesive sterile utility towels. C-arm was brought over the operating field and sq picture of L3 vertebra was demonstrated on the screen. Initially tilting C-arm 35 degrees ipsilateral to the right the most prominent picture of the right L3 pedicle was demonstrated on the screen. 3 mm below this level of the pedicle projection to the skin injection of the local anesthetic lidocaine 2% was performed forming skin wheal. After that 22 gauge 5 in needle was inserted through the skin and was advanced in tunnel vision fashion toward the most lowest point of the projection of the pedicle on the right. When tip of the needle gently contacted the bone the needle was deviated medially and inferiorly to advance it to the foramina. Patient started to express paresthesia going down to the right leg. The needle was withdrawn and position of the needle was changed to superior articular process on the right L4 vertebra where the point of interest was delineated as the most lateral point of the superior articular process on the right with same 35 degree ipsilateral rotation. The projection of the point of interest to the skin was injected with the same local anesthetic and after that 22 gauge 5 in needle was inserted through the skin wheal and advanced to were the lateral border of the superior articular process of L4. When tip of the needle gently contacted the bone the needle was deviated slightly lateral and immediately after medial and advanced into foramina. Injection of the contrast was performed delineating perineural spread of the contrast, after that injection of the treatment solution containing lidocaine 1% 3 mL mixed with Decadron 5 mg (patient has glaucoma and long-acting steroids may be detrimental to her condition.) After that the position of the C-arm was changed to the 35 degrees ipsilateral to the left and superior articular process on the left L4 vertebra was located under x-ray guidance. Lateral border of the superior articular process of L4 on the left projection to the skin was chosen as the starting point of the injection. It was infiltrated with lidocaine 1%. After that 22 gauge 5 in needle was advanced to were the target. When needle gently contacted the bone the needle was deviated slightly lateral and immediately after medial and advanced into foramina. Injection of the contrast was performed delineating perineural spread of the contrast. After that injection of treatment solution containing lidocaine 1% 3 mL mixed with Decadron 5 mg was performed into the needle. Upon completion of the procedure needle was withdrawn sterile Band-Aids were applied. The patient tolerated procedure well. Orders: Orders FL guidance in treatment room 09/28/24 M48.00 - Spinal stenosis, site unspecified Coding Level of Care Code Procedure Only Diagnoses Spinal stenosis M48.00 Radiculopathy, lumbar region M54.16
[2024-09-28 11:25] VITALS: BP 135/82; PULSE 61; O2SAT 97
== END 2024-09-28 12:00 | disposition home or self-care (01) ==
LOC: HO.PMCPRC 10:42
PROVIDERS: PCP Internal Medicine; Visit Provider Anesthesiology
DX: M54.16 Radiculopathy, lumbar region (principal)
CPT/HCPCS: 64483

== ENCOUNTER 2024-10-13 11:20 | Outpatient (AMB) | payer MEDICARE, MEDICAID, SELFPAY ==
[2024-10-13 11:33] VITALS: BP 142/79; PULSE 63; O2SAT 96; BMI 21.3
--- NOTE | 2024-10-13 11:33 | MHC.OFFVIS ---
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: No Allergies No Known Allergies Allergy (Verified 10/13/24 11:33) Medication List - Last Reconciled 10/13/24 by Jannette Fields, TIN POURER acetaminophen 1,000 mg PO TID estradiol-norethindrone acet 1-0.5 mg 1 tab PO DAILY fluticasone propionate 50 mcg/actuation 2 sprays intranasal DAILY latanoprost 0.005% 1 drp ophthalmic (eye) BEDTIME levothyroxine 1 tab PO DAILY metoprolol tartrate 50 mg PO BID olanzapine 15 mg PO BEDTIME peg 400-propylene glycol (PF) 0.4-0.3 % (Systane (PF)) 1 drp ophthalmic (eye) BID HPI Comments Details: The patient is a 74-year-old female presenting to the office for follow up, 2 weeks s/p bilateral L3-4 TFESI. Her pain relief has been consistent but insufficient, reduction from a pain score of 10 to 8, equating to about 20% improvement. Contributing factors to her pain severity include arthritis and weather conditions. An MRI assessment indicated significant involvement of lumbar spinal stenosis, prompting consideration of neurosurgical consultation to explore minimally invasive surgical options for more effective management. - Onset and Timing: Persistent over time; specific duration not detailed. - Quality and Character: Not explicitly described in conversation. - Primary Location: Back, with indication of lumbar region issues. - Radiation: Not specified. - Exacerbating Factors: Weather changes, arthritis. - Relieving Factors: Some relief with steroid injections. - Activities Interfered: Daily activities are impacted due to chronic pain. - Affect: Chronic pain affects the patient?s daily life, with fluctuating impact due to arthritis and weather. - Analgesia: Steroid injections reduced pain from a score of 10 to 8. - Adverse Effects: Injection-associated minor pain reported. - Activities of Daily Living: Impacted by chronic pain; 20% relief noted. - Aberrant Drug-Related Behaviors: No evidence of medication misuse noted. Prior: Cyndee presents back to the office today, accompanied by her sister, for follow-up lower back pain Since last visit she has had adjustments made to her medications by her PCP. Her blood pressure today is 128/76. Denies any recent elevated blood pressures. Endorses midline lower back pain without radiation down either lower extremity. She does suffer from fatigue and heaviness in her legs with walking that improves with rest. She would like to proceed with steroid injection that was discussed at last visit another blood pressure is controlled Denies any new injuries. Denies red flag symptoms including new loss of bowel, bladder or saddle anesthesia Prior: Patient presents back to the office today for follow-up, 3 days status post bilateral diagnostic L3-L4 DR L5 medial branch blocks She reports pain improved from 10/10 down to 8/10. Denies significant improvement of her symptoms. Continues with elevated blood pressure, she has follow up with her primary care doctor today to discuss Continues with midline lower back pain without radiation down either lower extremity though she does endorse fatigue and heaviness in her legs with walking that improves with rest. Prior: Cyndee presents back to the office today, accompanied by her sister, for follow-up lower back pain and review of recent MRI MRI reviewed, results as per below Continues with midline lower back pain without radiation down either lower extremity. Taking Tylenol with minimal improvement She is scheduled for diagnostic L3-L4 DR L5 medial branch blocks in 1 month Prior: Cyndee is a very pleasant 73-year-old female who presents the office today, accompanied by her sister, for evaluation and management of her chronic lower back pain. Patient reports she has been suffering with this pain for greater than 8 years. Denies inciting injury, trauma, accident. Endorses constant stabbing, aching pain across the lower back without radiation down either lower extremity. Endorses fatigue and heaviness in her legs with walking that improves with rest. Does find some comfort with slight forward flexed position while walking She had an MRI most recently in 2018 that showed severe central canal stenosis at L3-L4. She subsequently followed with neurosurgery at [facility] where she was offered surgery including decompression with fusion. States the surgeon did not give her good expectations for the surgery and mentioned the recovery would be difficult. Therefore they did not return to the office for follow-up and never had surgical intervention. Patient completed physical therapy without resolution of her symptoms. She is currently taking Tylenol for the pain with some improvement. Has tried nonsteroidal anti-inflammatory in the past that did not provide her any relief. She was previously prescribed tramadol from her primary care doctor though she no longer takes this. Reports at baseline she has some dizziness that is followed by Neurology with slightly unsteady gait at times. The tramadol made her feel worse so she is not interested medications of this type. Denies red flag symptoms including new loss of bowel, bladder or saddle anesthesia Pain today is rated as a 10/10, constant throughout the day. Pain is exacerbated by movements, bending, twisting, housework In terms of muscle damage condition is described as throbbing, sore, hurting, aching, exhausting, weakness, radiating, cold Pain is negatively impacting patient's enjoyment of life, general activity, walking, ability to function normally, relationships with people and mood Denies implantable devices, pacemaker or defibrillator Denies current use of anticoagulant Denies current use of nicotine, tobacco, alcohol or illicit substances [facility] Medical History (Updated 09/29/24 @ 07:41 by Denis Griffin MD) Glaucoma Arthritis Back pain Hypothyroid HTN (hypertension) Vision abnormalities Bipolar 1 disorder Herniated disc Surgical History (Updated 05/05/23 @ 08:37 by Augustina Logan RN) Hx of cataract surgery H/O oral surgery Social History Are you a primary skin care therapist to a significant other at home: No Do you presently have visiting nurse or other home services: No Alcohol intake: unknown Patient Tobacco Use Status: Never used Tobacco Review of Systems Const Details: - Musculoskeletal: Reports chronic back pain; notes influence of arthritis. - General: Denies any other new or different symptoms. Physical Exam Vital Signs: Last Vital Signs Pulse 63 10/13/24 11:33 BP 142/79 H 10/13/24 11:33 Pulse Ox 96 10/13/24 11:33 Oxygen Delivery Method Room Air 10/13/24 11:33 BMI result Body Mass Index 21.3 General: awake, alert, oriented. Answers questions appropriately. Fully engaged in examination. Skin: warm, dry, intact HEENT: Normocephalic. Hearing intact. Cardiac: External chest normal in appearance. Respiratory: No cough, audible wheezing or stridor. Abdomen: without gross distension. MS: No obvious swelling or deformities. Able to transition from sit to stand unassisted. Ambulates with bilaterally normal heel strike and toe off Neurological: Oriented to person, place, time and situation. Thought process intact. Psychiatric: Appropriate mood and affect. Good judgment and insight. Results Reviewed Results Reviewed: 03/29/24 MRI LS FINDINGS: Moderate degenerative changes in the lumbar spine present. There is mild anterolisthesis L3 on L4 and L4 on L5. Bone marrow signal is within normal limits, and no suspicious osseous lesion is identified. Conus medullaris is unremarkable. Paraspinal soft tissues and visualized portions of the abdomen and pelvis are unremarkable. At L1-2 there is no significant disc herniation or protrusion. No central canal or neural foraminal stenosis is demonstrated. L2-3 level reveals broad-based disc protrusion and moderate facet arthrosis resulting in moderate bilateral subarticular recess narrowing and contact descending nerve roots. There is mild/moderate bilateral neural foraminal narrowing without nerve root impingement. L3-4 level reveals diffuse annular bulge and advanced facet arthrosis resulting in advanced central canal stenosis. There is advanced right neural foraminal narrowing with impingement of exiting nerve root. Moderate left neural foraminal encroachment without discreet nerve root impingement seen. L4-5 level reveals diffuse annular bulge and advanced facet arthrosis resulting in moderate to advanced central canal stenosis. There is advanced bilateral neural foraminal narrowing with impingement exiting nerve roots bilaterally. L5-S1 level reveals diffuse annular bulge and moderate facet arthrosis resulting in mild bilateral subarticular recess narrowing and contact descending nerve roots bilaterally. There is mild to moderate bilateral neural foraminal narrowing without appreciable nerve root impingement. Synovial cyst seen posterior to the facet joints bilaterally right greater than left approximately 2 to 5 mm in size. IMPRESSION: 1. Degenerative changes of the lumbar spine with multilevel areas of moderate to advanced central canal stenosis and neural foraminal narrowing with associated exiting nerve root impingement. 2. L5-S1 level bilateral subarticular recess narrowing with mild contact descending nerve roots bilaterally. 3. L2-3 level bilateral subarticular recess narrowing with mild contact descending nerve roots. 4. L3-4 level right neural foraminal narrowing with impingement exiting right L3 nerve root. 5. L4-5 level bilateral neural foraminal narrowing with impingement exiting nerve roots bilaterally. MRI lumbar spine dated 12/09/2017: Impression: Severe spondylosis and central canal stenosis with a grade 1/2 anterolisthesis at L3-4 Moderate degenerative disc disease with endplate edema at L2-L3. Minimal anterior subluxation and broad-based, shallow left paracentral to subarticular disc protrusion resulting in mild mass effect upon the left L3 nerve root. Mild central canal stenosis. Milder spondylosis at L4-L5 where there is mild degree of endplate edema around a degenerative Schmorl's node in the L5 superior endplate and at L5 S1 Assessment & Plan Assessment & Plan (1) Spinal stenosis: Code(s): M48.00 - Spinal stenosis, site unspecified Category: Medical (2) Radiculopathy, lumbar region: Code(s): M54.16 - Radiculopathy, lumbar region Category: Medical (3) Lumbar spondylosis: Code(s): M47.816 - Spondylosis without myelopathy or radiculopathy, lumbar region Category: Medical Plan The plan involves referring the patient to neurosurgery to examine the findings of lumbar spinal stenosis as observed on the MRI. While current pain management through steroid injections provides only minor relief, further evaluation and possible surgical intervention might offer more substantial improvements in pain and function. It was emphasized that a surgical assessment does not commit her to a procedure. The neurosurgical team?s evaluation will guide further management. I discussed with the patient the findings of lumbar spinal stenosis as seen on the MRI. We reviewed the limited relief from diagnostic MBBs and steroid injections and explored referral to neurosurgery as the next step in management. I explained the potential for minimally invasive surgical options, detailing that the consultation is evaluative and not a commitment to undergo surgery. The patient expressed understanding and agreed with proceeding with the referral. Discussions included the logistics of the consultation, anticipated timelines for appointment scheduling, and a reiteration of the surgical team request process. Patient was informed and verbally consented to the use of an ambient scribe for clinic note documentation during this visit. Orders: Referrals Neuro Spine Referral M47.816 - Spondylosis without myelopathy or radiculopathy, lumbar region, M48.00 - Spinal stenosis, site unspecified, M54.16 - Radiculopathy, lumbar region Patient Instructions: - Await contact from neurosurgery to schedule an evaluation appointment. - Continue current pain management strategy unless advised otherwise. - Seek immediate care if her condition worsens. - Maintain a record of pain levels and any triggering factors for follow-up discussion. Coding Level of Care Code Est Pt Level 3 (62798) Complex EM visit Add On G2211 Diagnoses Spinal stenosis M48.00 Radiculopathy, lumbar region M54.16 Lumbar spondylosis M47.816
== END 2024-10-13 11:44 | disposition home or self-care (01) ==
LOC: HO.PMC 11:21
PROVIDERS: PCP Internal Medicine; Visit Provider Registered Nurse Emergency
DX: M48.00 Spinal stenosis, site unspecified (principal); M54.16 Radiculopathy, lumbar region; M47.816 Spondylosis without myelopathy or radiculopathy, lumbar region
CPT/HCPCS: 99213; G2211

== ENCOUNTER → 2024-10-13 11:20 | Outpatient (BNVA) | payer MEDICARE, MEDICAID, SELFPAY | PROVIDERS: PCP Internal Medicine; Visit Provider Registered Nurse Emergency | DX: M48.00 Spinal stenosis, site unspecified (principal); M54.16 Radiculopathy, lumbar region; M47.816 Spondylosis without myelopathy or radiculopathy, lumbar region | CPT/HCPCS: 99212 ==

== ENCOUNTER 2024-10-14 10:42 | Outpatient (AMB) | payer MEDICARE, MEDICAID, SELFPAY ==
[2024-10-14 10:47] VITALS: BP 130/80; PULSE 63; TEMP 36.2; O2SAT 98; BMI 20.6
--- NOTE | 2024-10-14 10:47 | A.OFFPC_ITS ---
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 Required: No Accompanied by: Self / Same As Patient Allergies No Known Allergies Allergy (Verified 10/14/24 10:48) Tobacco use date assessed: 10/14/24 Fall risk assessment: No Falls in past year Last assessed Fall Risk: 10/14/24 Dental Screening Dental Screen Date: 10/14/24 Did you have a dental visit in the last 12 months?: Yes Did you have a dental problem in the last 6 months where you did not have access to dental care?: No HPI HPI Comments History of Present Illness Details The patient is a 74 year old female with a past medical history of hypothyroid, CKD, htn, ddd lumbar spine, bipolar disorder, presenting for follow up. Last seen by PCP July Hypothyroid: on levothyroxine 50mcg daily. HTN: on metoprolol 50 twice daily. BP 130/80. Denies chest pain, shortness of breath BH: Sees Magda Jackson. stable on current med regimen MSK: Seeing pain management. Has received lumbar block Neuro: Saw Dr Morris re dizziness. Believes that to be attributable. Had YVONNE to r/o Parkinsons on September 30. Will be seeing ENT. Had brain scan previously. Had cataract Apr 2023. Follows with gynecology: Follows with Dr Moose Wray 2020 Declines colonoscopy ROS CONSTITUTIONAL: Denies weight loss, fever and chills. HEENT: Denies changes in vision and hearing. RESPIRATORY: Denies SOB and cough. CV: Denies palpitations and CP GI: Denies abdominal pain, nausea, vomiting and diarrhea. : Denies dysuria and urinary frequency. MSK: Denies new myalgia and joint pain. SKIN: Denies rash and pruritus. NEUROLOGICAL: Denies headache PSYCHIATRIC: Denies recent changes in mood. PHYSICAL EXAM: GENERAL: Alert and oriented x 3. NAD EYES: EOMI. Anicteric. HENT: Moist mucous membranes. No scleral icterus. No cervical lymphadenopathy. LUNGS: Clear to auscultation bilaterally. CARDIOVASCULAR: Regular rate and rhythm. No murmur. No JVD. ABDOMEN: Soft, non-tender +bs EXTREMITIES: No edema. Non-tender. SKIN: No rashes or lesions. Warm. NEUROLOGIC: No focal neurological deficits. CN II-XII grossly intact PSYCHIATRIC: Cooperative. Appropriate mood and affect [facility] Medical History (Updated 10/17/24 @ 14:16 by Maryjane Pagan MD) Glaucoma Arthritis Back pain Hypothyroid HTN (hypertension) Vision abnormalities Bipolar 1 disorder Herniated disc Surgical History Hx of cataract surgery H/O oral surgery Family History Mother Heart muscle disorder caused by another medical condition Father Heart problem Social History Housing: House Are you a primary resident care coordinator to a significant other at home: No Do you presently have visiting nurse or other home services: No Alcohol intake: unknown Patient Tobacco Use Status: Former Tobacco user e-Cigarette/Vaping Use: Former Use service: No Current occupational status: retired Cognitive needs: No Hearing needs: No Vision needs: Yes (rx glasses) Questionnaire PHQ-9 Over the last 2 weeks, how often have you been bothered by any of the following problems? 1. Little interest or pleasure in doing things: not at all 2. Feeling down, depressed, or hopeless: not at all 3. Trouble falling or staying asleep, or sleeping too much: not at all 4. Feeling tired or having little energy: not at all 5. Poor appetite or overeating: not at all 6. Feeling bad about yourself - or that you are a failure or have let yourself or your family down: not at all 7. Trouble concentrating on things, such as reading the newspaper or watching television: not at all 8. Moving or speaking so slowly that other people could have noticed. Or the opposite - being so fidgety or restless that you have been moving around a lot more than usual: not at all 9. Thoughts that you would be better off or of hurting yourself in some way: not at all Total score: 0 Depression Screening Interpretation: Negative Depression Screening Done: Yes 58221 - PHQ-9 Billing: Yes Source: Developed by Drs. Nigel Garcia, Pedrito Mukherjee and colleagues, with an educational te from [employer]. Thrive Questionnaire Date Thrive assessed: 10/14/24 I am a: Patient Within the past 12 months, did the food you bought not last and you didn't have the money to get more?: Never true Within the past 12 months, did you worry whether your food would run out before you got money to buy more?: Never true Do you have trouble paying for medicines?: No Do you have trouble getting transportation to medical appointments?: No Do you have trouble paying your heating and electricity bill?: No Do you have trouble taking care of your child, family member or friend?: No Do you have trouble with day-to-day activities such as bathing, preparing meals, shopping, managing finances, etc.?: No Are you currently unemployed and looking for a job?: No Are you interested in more education?: No THRIVE Score: 0 AUDIT C Alcohol Use Questionnaire (AUDIT-C) 1. How often do you have a drink containing alcohol?: Monthly or less 2. How many drinks containing alcohol do you have on a typical day when you are drinking?: 1 or 2 3. How often do you have six or more drinks on one occasion?: Less than monthly Total Score: 2 JONATHAN-7 AMB Questionnaire JONATHAN-7 Date JONATHAN - 7 assessed: 10/14/24 Feeling nervous, anxious, or on edge: 1 = Several days Not being able to stop or control worryin = Not at all Worrying too much about different things: 0 = Not at all Trouble relaxin = Not at all Being so restless that it is hard to sit still: 0 = Not at all Becoming easily annoyed or irritable: 0 = Not at all Feeling afraid as if something awful might happen: 0 = Not at all Total JONATHAN-7 score (0-4 normal; 5-9 mild; 10-14 moderate; 15-21 severe): 1 Source: Developed by Drs. Nigel Garcia, Pedrito Mukherjee and colleagues, with an educational te from [employer]. Physical exam (Primary Care) Vital Signs: Last Vital Signs Temp 97.2 F 10/14/24 10:47 Pulse 63 10/14/24 10:47 BP 130/80 10/14/24 10:47 Pulse Ox 98 10/14/24 10:47 Oxygen Delivery Method Room Air 10/14/24 10:47 BMI result Body Mass Index 20.6 Tobacco/Smoking Status: Tobacco use Status Tobacco use date assessed 10/14/24 10/14/24 10:49 Patient Tobacco Use Status Former Tobacco user 10/14/24 11:00 e-Cigarette/Vaping Use Former Use 10/14/24 11:00 PHQ-9: PHQ-9 Score PHQ-9: Total score 0 10/14/24 11:07 Depression Screening Interpretation: Negative Thrive Assessment: Date of Thrive Assessment Date Thrive assessed 10/14/24 10/14/24 10:49 Coding Level of Care Code New Pt Level 4 (61383) Complex EM visit Add On G2211 Diagnoses Primary hypertension I10 Hypertension type: primary hypertension Hypothyroidism, unspecified type E03.9 Hypothyroidism type: unspecified Radiculopathy, lumbar region M54.16 Lumbar spondylosis M47.816 Additional Codes PHQ-9 - 80193 - PHQ-9 Billing: Yes ([id number]) Assessment & Plan Assessment & Plan (1) HTN (hypertension): Code(s): I10 - Essential (primary) hypertension Category: Medical Qualifiers: Hypertension type: primary hypertension Qualified Code(s): I10 - Essential (primary) hypertension (2) Hypothyroid: Code(s): E03.9 - Hypothyroidism, unspecified Category: Medical Qualifiers: Hypothyroidism type: unspecified Qualified Code(s): E03.9 - Hypothyroidism, unspecified (3) Radiculopathy, lumbar region: Code(s): M54.16 - Radiculopathy, lumbar region Category: Medical (4) Lumbar spondylosis: Code(s): M47.816 - Spondylosis without myelopathy or radiculopathy, lumbar region Category: Medical Plan 74 y/o to establish care past medical, surgical, social history reviewed Meds reconciled BH-bipolar stable on current medications. continue follow up with psych HTN-well controlled on current medications Continue levothyroxine. Labs ordered Orders: Orders Complete Blood Count Auto Diff 4 Months E03.9 - Hypothyroidism, unspecified, I10 - Essential (primary) hypertension, R42 - Dizziness and giddiness Comprehensive Met. Panel 4 Months E03.9 - Hypothyroidism, unspecified, I10 - Essential (primary) hypertension, R42 - Dizziness and giddiness Lipid Panel 4 Months E03.9 - Hypothyroidism, unspecified, I10 - Essential (primary) hypertension, R42 - Dizziness and giddiness Vitamin B12 and Folate 4 Months E03.9 - Hypothyroidism, unspecified, I10 - Essential (primary) hypertension, R42 - Dizziness and giddiness TSH reflex Free T4 4 Months E03.9 - Hypothyroidism, unspecified, I10 - Essential (primary) hypertension, R42 - Dizziness and giddiness Lyme IgG/IgM w/reflex to WB 4 Months E03.9 - Hypothyroidism, unspecified, I10 - Essential (primary) hypertension, R42 - Dizziness and giddiness Medications: Changed From levothyroxine 1 tab PO DAILY To levothyroxine for refills 50 mcg PO DAILY 90 tabs 3RF
== END 2024-10-14 11:29 | disposition home or self-care (01) ==
LOC: HO.HMCHD 10:42
PROVIDERS: PCP Internal Medicine; Visit Provider Internal Medicine
DX: I10 Essential (primary) hypertension (principal); E03.9 Hypothyroidism, unspecified; M54.16 Radiculopathy, lumbar region; M47.816 Spondylosis without myelopathy or radiculopathy, lumbar region

== ENCOUNTER → 2024-10-14 10:42 | Outpatient (BNVA) | payer MEDICARE, MEDICAID, SELFPAY | PROVIDERS: PCP Internal Medicine; Visit Provider Internal Medicine | DX: I12.9 Hypertensive chronic kidney disease with stage 1 through stage 4 chronic kidney disease, or unspecified chronic kidney disease (principal); N18.9 Chronic kidney disease, unspecified; E03.9 Hypothyroidism, unspecified; M51.369 Other intervertebral disc degeneration, lumbar region without mention of lumbar back pain or lower extremity pain; M54.16 Radiculopathy, lumbar region; M47.816 Spondylosis without myelopathy or radiculopathy, lumbar region | CPT/HCPCS: 96127; 99202 ==

== ENCOUNTER 2024-10-19 13:57 | Outpatient (REF) | payer MEDICARE, MEDICAID, SELFPAY ==
--- NOTE | ~2024-10-19 | XR_ITS ---
CLINICAL HISTORY: M47.816 - Spondylosis without myelopathy or radiculopathy, lumbar region --- Additi onal Notes or Special Instructions: AP LAT FLEX EX 4 views lumbar spine Comparison: None Findings: No acute fracture. Up to 10 mm grade 1 anterolisthesis at L4/L5 on the neutral view (this decreases to 8 mm on the extension view), and 5 mm anterolisthesis at L3/L4 level on the neutral view (this increases to 6 mm on the extension view). Mild left-sided lateral listhesis at L3/L4 and L4/L5. Mild left-sided curvature of the lower lumbar spine. Jfojyjyb-yd-jazhbn disc narrowing from L2/L3 to L5/S1. Multilevel lumbar spine facet osteoarthritis and degenerative interspinous process narrowing. IMPRESSION: Up to 2 mm motion at L4/L5 and 1 mm motion at L3/L4 on the dynamic lateral views. Multilevel lumbar spine degenerative changes. This document has been electronically signed by: Billie Buchanan MD on 10/21/2024 12:30:35
== END 2024-10-19 13:58 | disposition home or self-care (01) ==
LOC: HO.HOSX 13:57
PROVIDERS: PCP Internal Medicine; Referring Provider Registered Nurse Emergency; Visit Provider Physician Assistant
DX: M47.816 Spondylosis without myelopathy or radiculopathy, lumbar region (principal); M51.361 Other intervertebral disc degeneration, lumbar region with lower extremity pain only; M47.817 Spondylosis without myelopathy or radiculopathy, lumbosacral region; M48.07 Spinal stenosis, lumbosacral region
CPT/HCPCS: 72110; 99202

== ENCOUNTER 2024-10-19 13:57 | Outpatient (AMB) | payer MEDICARE, MEDICAID, SELFPAY ==
--- NOTE | 2024-10-19 14:00 | A.SPINEOV_ITS ---
Vital Signs 10/19/24 14:02 Height 5 ft 4 in Weight 120 lb BMI 20.6 Intake Visit Reasons: lumbar radiculopathy Intake Note: Ms. Rodríguez is here today c/o low back pain. Cancer Genetics Assistant Required: No Allergies No Known Allergies Allergy (Verified 10/19/24 14:04) Assessment & Plan Assessment & Plan (1) Lumbar spondylosis: Code(s): M47.816 - Spondylosis without myelopathy or radiculopathy, lumbar region Category: Medical (2) Degenerative disc disease, lumbar: Code(s): M51.369 - Other intervertebral disc degeneration, lumbar region without mention of lumbar back pain or lower extremity pain Category: Medical Plan Dear CRISTAL Lovell, Thank you for referring Cyndee to our office today. She is a pleasant 74-year-old female who comes in today with a chief complaint of low back pain. When describing her low back pain she runs her hands an axial fashion across the lower lumbar spine. In addition to this she does report some intermittent leg pain primarily in her posterior thighs. She denies any numbness and tingling in her lower extremities. She reports that her low back pain has been ongoing for the past 10 years. She denies any known inciting incident for the pain. She reports that positional changes exacerbate her pain, such as sitting up from a lying down position, or standing from a seated position. She states that laying flat on her back helps to alleviate her pain. In addition to this she has some difficulties with prolonged ambulation, and is only able to walk about a half a block before she needs to sit and rest due to severe low back pain. She has attempted prescription medications such as narcotic opiates (Tramadol) and nuwi-asg-maqmklk medications such as Tylenol/ibuprofen effort to help mitigate the pain. These only seem to provide modest relief. She has attempted injections with our colleagues in pain management, but reports little to no pain relief from these injections. She has attempted physical therapy and at-home stretching/exercise, but also states that this really only causes her more pain. PMH: High blood pressure, vision problems, bipolar disorder, cataracts, glaucoma, hypothyroidism. Social hx: The patient does not smoke, reports no substance use. Medications: See [employer] list. Allergies: NKDA Physical exam: Cyndee has 5/5 strength in her upper and lower extremities. She reports no sensational deficits to light touch on examination. Her reflexes are 2+ intact. She ambulates well, but slowly, with no assistive devices. (-) bilateral straight leg raise, (-) Thomas's, (-) clonus. Imaging review: MRI of the lumbar spine completed here at [facility] shows severe disc degeneration L2-5. There are type IV Modic endplate changes notable at L3-4, L4-5. There is a grade 1 spondylolisthesis at L3-4, and L4-5. As a result of severe degeneration there is moderate left-sided and severe right-sided foraminal stenosis at L2-3, severe central canal and bilateral foraminal stenosis at L3-4, and moderate central canal/severe bilateral foraminal stenosis at L4-5. On AP localizer view there appears to be a left lateral listhesis of L3 as well. Impression: Cyndee is a pleasant 74-year-old female who comes in today for evaluation of chronic longstanding low back pain. This has been ongoing for the past 10 years without any known inciting incident. She denies any real radicular symptoms other than some posterior thigh pain that flares up occasionally. She has no numbness or tingling in her bilateral lower extremities either. I believe that she is symptomatic from the severe disc degeneration and spondylolisthesis seen from L2-5. Typically, in a patient of her age with minimal medical comorbidities Dr. Shea would offer lumbar fusion to address the listhesis and pain. We did extensively discuss the possibility of our OLIF procedure to address her pain. Her sister accompanied her to this visit today who raise several questions regarding her bone quality. They would like her to have a DEXA scan completed prior to considering lumbar fusion. I believe this is a completely reasonable request. I will place the order for DEXA scan, and also would like her to obtain a set of flexion/extension x-rays to evaluate for worsening listhesis in the setting of spine mobility. Once her DEXA scan is complete I will follow up with her again in clinic after I have time to review her case with Dr. Shea. Thank you for allowing us to care for your patient. The total time spent with this visit with this patient was 45 minutes reviewing history, physical exam, MRI imaging review, and implementation of treatment plan or further diagnostic testing Carlin Shea MD,PhD [facility] Orders: Orders XR lumbar spine 4V min Today M47.816 - Spondylosis without myelopathy or radiculopathy, lumbar region XR DEXA axial skeleton Today M47.816 - Spondylosis without myelopathy or radiculopathy, lumbar region Coding Level of Care Code New Pt Level 4 (04728) Diagnoses Lumbar spondylosis M47.816 Degenerative disc disease, lumbar M51.369
[2024-10-19 14:02] VITALS: BMI 20.6
== END 2024-10-19 15:08 | disposition home or self-care (01) ==
LOC: HO.HNS 13:57
PROVIDERS: PCP Internal Medicine; Referring Provider Registered Nurse Emergency; Visit Provider Physician Assistant
DX: M47.816 Spondylosis without myelopathy or radiculopathy, lumbar region (principal); M51.369 Other intervertebral disc degeneration, lumbar region without mention of lumbar back pain or lower extremity pain
CPT/HCPCS: 99204

== ENCOUNTER → 2024-10-19 14:57 | Outpatient (BNV) | payer MEDICARE, MEDICAID, SELFPAY | PROVIDERS: PCP Internal Medicine; Referring Provider Registered Nurse Emergency; Visit Provider Radiology Diagnostic Radiology | DX: M54.50 Low back pain, unspecified (principal) | CPT/HCPCS: 72110 ==

== ENCOUNTER 2024-11-12 08:44 | Outpatient (REF) | payer MEDICARE, MEDICAID, SELFPAY ==
--- NOTE | ~2024-11-12 | MM_ITS ---
EXAMINATION: DXA BONE DENSITY AXIAL HISTORY: M47.816 - Spondylosis without myelopathy or radiculopathy, lumbar region TECHNIQUE: [employer] Dual energy absorptiometry (DEXA) of the lumbar spine, total left hip, and femoral neck was performed. COMPARISON: Comparison is made with the prior examination dated 11/02/2013. FINDINGS: The bone mineral density of the lumbar spine is 1.309 with a T-score of 1.2, and a Z-score of 3.3. This is indicative of normal bone mineral density. This represents a BMD change of 6.6% compared to the prior exam. This is statistically significant. The bone mineral density of the left total hip is 0.866 with a T-score of -1.1, and a Z-score of 0.8. This is indicative of osteopenia. This represents a BMD change of -8.9% compared to the prior exam. This is statistically significant. The bone mineral density of the left femoral neck is 0.798 with a T-score of -1.7, and a Z-score of 0.4. This is indicative of osteopenia. This represents a BMD change of -10.6% compared to the prior exam. FRACTURE RISK: The FRAX index suggests a ten year probability of major osteoporotic fracture of 10.3%, and of hip fracture 2.3%. MM/XR DEXA axial skeleton IMPRESSION: Based on bone mineral density, and according to World Health Organization (WHO) criteria, the diagnosis is consistent with osteopenia. All bone density values are in grams per centimeter squared (g/cm2). Statistically, 68% of repeat scans fall within 1 SD (+/- 0.010 g/cm2 for AP spine L1-L4) and 1 SD (+/- 0.012 g/cm2 for femur total) FRAX is a trademark of the [employer] Metabolic Bone Disease, a World Health Organization (WHO) Collaborating Center. Electronically signed by: Nigel Frank MD 11/12/2024 10:59 AM EDT
== END 2024-11-12 08:45 | disposition home or self-care (01) ==
LOC: HO.MAMMO 08:44
PROVIDERS: PCP Internal Medicine; Visit Provider Physician Assistant
DX: M81.0 Age-related osteoporosis without current pathological fracture (principal)
CPT/HCPCS: 77080

== ENCOUNTER → 2024-11-12 09:15 | Outpatient (BNV) | payer MEDICARE, MEDICAID, SELFPAY | PROVIDERS: PCP Internal Medicine; Visit Provider Radiology Diagnostic Radiology | DX: E28.39 Other primary ovarian failure (principal) | CPT/HCPCS: 77080 ==

== ENCOUNTER 2024-12-03 14:01 | Outpatient (AMB) | payer MEDICARE, MEDICAID, SELFPAY ==
--- NOTE | 2024-12-03 14:20 | A.SPINEOV_ITS ---
Intake Visit Reasons: discuss sx/meeting Dr. Puente Intake Note: Ms. Rodríguez is here today to discuss surgical options. [employer] Cake Decorator Required: No Allergies No Known Allergies Allergy (Verified 10/19/24 14:04) Assessment & Plan Assessment & Plan (1) Scoliosis of lumbar region due to degenerative disease of spine in adult: Code(s): M41.56 - Other secondary scoliosis, lumbar region Category: Medical (2) Spondylolisthesis, lumbar region: Code(s): M43.16 - Spondylolisthesis, lumbar region Category: Medical (3) Lumbar stenosis with neurogenic claudication: Code(s): M48.062 - Spinal stenosis, lumbar region with neurogenic claudication Category: Medical Plan Dear colleague, On 12/03/2024, I saw for surgical discussion Cyndee Rodríguez to discuss possible surgery to address her back pain and neurogenic claudication symptoms. She is accompanied by her sister. I reviewed her images in detail and showed the L3-4 and L4-5 spondylolisthesis and unilateral L3-4 disc collapse with lateral listhesis causing lumbar degenerative scoliosis. I offered her an oblique lumbar interbody fusion L3-4 and L4-5 to restore the anatomical alignment of the spine by reducing the spondylolisthesis at the 2 levels and correcting the deformity in the coronal plane. I explained the procedure on the hand of a model and compared this approach with more invasive and open procedures. I stressed the fact that this is a minimally invasive procedure. She is expected to be in the hospital 1 night. I do not expected to go to rehab as her sister can accompany her during the recovery. I quoted a 75% chance that her symptoms will be relieved or gone. She wants to think about this option. She will let my office know if she wants to proceed. Of note, the DEXA scan came back as normal. I spent 35 minutes in his consult to address questions and review of imaging. Rajendra Shea MD, PhD Spine Fellowship Trained Neurosurgeon Director, [facility] Coding Level of Care Code Est Pt Level 4 (09667) Diagnoses Scoliosis of lumbar region due to degenerative disease of spine in adult M41.56 Spondylolisthesis, lumbar region M43.16 Lumbar stenosis with neurogenic claudication M48.062
== END 2024-12-03 15:14 | disposition home or self-care (01) ==
LOC: HO.HNS 14:02
PROVIDERS: PCP Internal Medicine; Visit Provider Neurological Surgery
DX: M41.56 Other secondary scoliosis, lumbar region (principal); M43.16 Spondylolisthesis, lumbar region; M48.062 Spinal stenosis, lumbar region with neurogenic claudication
CPT/HCPCS: 99214

== ENCOUNTER → 2024-12-03 14:01 | Outpatient (BNVA) | payer MEDICARE, MEDICAID, SELFPAY | PROVIDERS: PCP Internal Medicine; Visit Provider Neurological Surgery | DX: M43.16 Spondylolisthesis, lumbar region (principal); M41.56 Other secondary scoliosis, lumbar region; M48.062 Spinal stenosis, lumbar region with neurogenic claudication | CPT/HCPCS: 99212 ==

== ENCOUNTER 2025-01-06 09:36 | Outpatient (AMB) | payer MEDICARE, MEDICAID, SELFPAY ==
--- NOTE | 2025-01-06 09:42 | MHC.PC.OV ---
Vital Signs 01/06/25 09:49 01/06/25 09:52 Height 5 ft 4 in Weight 120 lb BMI 20.6 BP 134/80 Blood Pressure Location Rt brachial Position Sitting Respiration 16 Pulse 63 Pulse Source Pulse Oximeter Temp 97.7 F Pulse Oximetry (%) 98 Oxygen Delivery Method Room Air Intake Visit Reasons: routine - see comments Medical Appointment Scheduler Required: No Accompanied by: Sister Allergies No Known Allergies Allergy (Verified 01/06/25 09:42) Tobacco use date assessed: 10/14/24 Dental Screening Dental Screen Date: 10/14/24 HPI HPI Comments History of Present Illness Details The patient is a 74 year old female with a past medical history of hypothyroid, CKD, htn, ddd lumbar spine, bipolar disorder, presenting for follow up. Last seen by PCP July Hypothyroid: on levothyroxine 50mcg daily. HTN: on metoprolol 50 twice daily. BP 130/80. Denies chest pain, shortness of breath BH: Sees Magda Jackson. stable on current med regimen MSK: Seeing pain management. Lumbar injections have not been effective. She saw neurospine who recommended surgery but she does not want to proceed. That said she has elevated pain levels daily. She did not tolerate gabapentin in the past. She has taken tramadol with good effect in the past. Neuro: Saw Dr Morris re dizziness. Believes due to loss of peripheral vision and neuropathy. Had YVONNE to r/o Parkinsons on September 30. Will be seeing ENT. Had brain scan previously. Had cataract Apr 2023. Wilmar Follows with gynecology: Follows with Dr Moose Wray 2020 Declines colonoscopy ROS see HPI PHYSICAL EXAM: GENERAL: Alert and oriented x 3. NAD EYES: EOMI. Anicteric. HENT: Moist mucous membranes. No scleral icterus. No cervical lymphadenopathy. LUNGS: Clear to auscultation bilaterally. CARDIOVASCULAR: Regular rate and rhythm. No murmur. No JVD. ABDOMEN: Soft, non-tender +bs EXTREMITIES: No edema. Non-tender. SKIN: No rashes or lesions. Warm. NEUROLOGIC: No focal neurological deficits. CN II-XII grossly intact PSYCHIATRIC: Cooperative. Appropriate mood and affect [facility] Medical History Glaucoma Arthritis Back pain Hypothyroid HTN (hypertension) Vision abnormalities Bipolar 1 disorder Herniated disc Surgical History Hx of cataract surgery H/O oral surgery Family History Mother Heart muscle disorder caused by another medical condition Father Heart problem Social History Housing: House Are you a primary medicare contact specialist to a significant other at home: No Do you presently have visiting nurse or other home services: No Alcohol intake: unknown Patient Tobacco Use Status: Former Tobacco user e-Cigarette/Vaping Use: Former Use service: No Current occupational status: retired Cognitive needs: No Hearing needs: No Vision needs: Yes (rx glasses) Questionnaire Thrive Questionnaire Date Thrive assessed: 10/14/24 JONATHAN-7 AMB Questionnaire JONATHAN-7 Date JONATHAN - 7 assessed: 10/14/24 Source: Developed by Drs. Nigel Garcia, Lizbet Dominguez, Pedrito Weber and colleagues, with an educational te from [employer]. Physical exam (Primary Care) Vital Signs: Last Vital Signs Temp 97.7 F 01/06/25 09:49 Pulse 63 01/06/25 09:49 Resp 16 01/06/25 09:52 BP 134/80 01/06/25 09:49 Pulse Ox 98 01/06/25 09:49 Oxygen Delivery Method Room Air 01/06/25 09:49 BMI result Body Mass Index 20.6 Tobacco/Smoking Status: Tobacco use Status Tobacco use date assessed 10/14/24 01/06/25 09:52 Patient Tobacco Use Status Former Tobacco user 01/06/25 09:52 e-Cigarette/Vaping Use Former Use 01/06/25 09:52 Thrive Assessment: Date of Thrive Assessment Date Thrive assessed 10/14/24 01/06/25 09:52 Coding Level of Care Code Est Pt Level 4 (40828) Complex EM visit Add On G2211 Diagnoses Primary hypertension I10 Hypertension type: primary hypertension Hypothyroidism, unspecified type E03.9 Hypothyroidism type: unspecified Degeneration of intervertebral disc of lumbar region, unspecified whether pain present M51.369 Disc-related pain type: unspecified whether pain present Assessment & Plan Assessment & Plan (1) HTN (hypertension): Code(s): I10 - Essential (primary) hypertension Category: Medical Qualifiers: Hypertension type: primary hypertension Qualified Code(s): I10 - Essential (primary) hypertension (2) Hypothyroid: Code(s): E03.9 - Hypothyroidism, unspecified Category: Medical Qualifiers: Hypothyroidism type: unspecified Qualified Code(s): E03.9 - Hypothyroidism, unspecified (3) Degenerative disc disease, lumbar: Code(s): M51.369 - Other intervertebral disc degeneration, lumbar region without mention of lumbar back pain or lower extremity pain Category: Medical Qualifiers: Disc-related pain type: unspecified whether pain present Qualified Code(s): M51.369 - Other intervertebral disc degeneration, lumbar region without mention of lumbar back pain or lower extremity pain Plan 74 year old for follow up Chronic pain-Tramadol ordered. Hypothyroid-stable on levothyroxine mammo is ordered Follow up 2 months Orders: Orders MM screening mammo BI Today Z12.31 - Encounter for screening mammogram for malignant neoplasm of breast Medications: New tramadol 50 mg PO Q8H PRN 21 tabs 0RF pain 7 days M51.369 - Other intervertebral disc degeneration, lumbar region without mention of lumbar back pain or lower extremity pain Refilled levothyroxine for refills 50 mcg PO DAILY 90 tabs 3RF
[2025-01-06 09:49] VITALS: BP 134/80; PULSE 63; TEMP 36.5; O2SAT 98; BMI 20.6
[2025-01-06 09:52] VITALS: RESP 16
== END 2025-01-06 10:23 | disposition home or self-care (01) ==
LOC: HO.HMCHD 09:37
PROVIDERS: PCP Internal Medicine; Visit Provider Internal Medicine
DX: I10 Essential (primary) hypertension (principal); E03.9 Hypothyroidism, unspecified; M51.369 Other intervertebral disc degeneration, lumbar region without mention of lumbar back pain or lower extremity pain

== ENCOUNTER → 2025-01-06 09:36 | Outpatient (BNVA) | payer MEDICARE, MEDICAID, SELFPAY | PROVIDERS: PCP Internal Medicine; Visit Provider Internal Medicine | DX: I12.9 Hypertensive chronic kidney disease with stage 1 through stage 4 chronic kidney disease, or unspecified chronic kidney disease (principal); N18.9 Chronic kidney disease, unspecified; E03.9 Hypothyroidism, unspecified; M51.369 Other intervertebral disc degeneration, lumbar region without mention of lumbar back pain or lower extremity pain; Z79.899 Other long term (current) drug therapy | CPT/HCPCS: 99212 ==

== ENCOUNTER 2025-02-03 11:19 | Outpatient (AMB) | payer MEDICARE, MEDICAID, SELFPAY ==
--- NOTE | 2025-02-03 11:24 | MHC.PC.OV ---
Vital Signs 02/03/25 11:32 Height 5 ft 4 in Weight 121 lb BMI 20.8 BP 116/76 Blood Pressure Location Rt brachial Position Sitting Respiration 16 Pulse 57 Pulse Source Pulse Oximeter Temp 97.6 F Temp Source Temporal Artery Scan Pulse Oximetry (%) 96 Oxygen Delivery Method Room Air Intake Visit Reasons: F/U re: medication complications Flash Developer Required: No Accompanied by: Sister Allergies No Known Allergies Allergy (Verified 02/03/25 11:24) Medication List - Last Reconciled 02/03/25 by Maryjane Pagan MD acetaminophen 1,000 mg PO TID calcium citrate-vitamin D3 315 mg-6.25 mcg (250 unit) (Citracal + Vitamin D Maximum) 1 tab PO DAILY cholecalciferol (vitamin D3) 50 mcg PO DAILY estradiol-norethindrone acet 1-0.5 mg 1 tab PO DAILY fluticasone propionate 50 mcg/actuation 2 sprays intranasal DAILY guaifenesin ER (Mucinex) 1,200 mg PO .every other day levothyroxine 50 mcg PO DAILY metoprolol tartrate 50 mg PO BID gdwzgqfqzitu-bntodvde-xpnrmy 1 tab PO DAILY olanzapine 15 mg PO BEDTIME oxycodone 5 mg PO BID peg 400-propylene glycol (PF) 0.4-0.3 % (Systane (PF)) 1 drp ophthalmic (eye) BID Tobacco use date assessed: 10/14/24 Dental Screening Dental Screen Date: 10/14/24 HPI HPI Comments History of Present Illness Details The patient is a 74 year old female with a past medical history of hypothyroid, CKD, htn, ddd lumbar spine, bipolar disorder, presenting for follow up Hypothyroid: on levothyroxine 50mcg daily. HTN: on metoprolol 50 twice daily. BP 130/80. Denies chest pain, shortness of breath BH: Sees Magda Jackson. stable on current med regimen MSK: Seeing pain management. Lumbar injections have not been effective. She saw neurospine who recommended surgery but she does not want to proceed. That said she has elevated pain levels daily. She did not tolerate gabapentin in the past. She has taken tramadol with good effect in the past-tried this it gave her tremors. Tried oxycodone 5 and 10mg and not very effective. Interested in lyrica trial. May try a ER oxycodone or morphine if intolerant or not effective Neuro: Saw Dr Morris re dizziness. Believes due to loss of peripheral vision and neuropathy. Had YVONNE to r/o Parkinsons on September 30. Will be seeing ENT. Had brain scan previously. Had cataract Apr 2023. Wilmar Follows with gynecology: Follows with Dr Moose Wray 2020 Declines colonoscopy ROS see HPI PHYSICAL EXAM: GENERAL: Alert and oriented x 3. NAD EYES: EOMI. Anicteric. HENT: Moist mucous membranes. No scleral icterus. No cervical lymphadenopathy. LUNGS: Clear to auscultation bilaterally. CARDIOVASCULAR: Regular rate and rhythm. No murmur. No JVD. ABDOMEN: Soft, non-tender +bs EXTREMITIES: No edema. Non-tender. SKIN: No rashes or lesions. Warm. NEUROLOGIC: No focal neurological deficits. CN II-XII grossly intact PSYCHIATRIC: Cooperative. Appropriate mood and affect [facility] Medical History Glaucoma Arthritis Back pain Hypothyroid HTN (hypertension) Vision abnormalities Bipolar 1 disorder Herniated disc Surgical History Hx of cataract surgery H/O oral surgery Family History Mother Heart muscle disorder caused by another medical condition Father Heart problem Social History Housing: House Are you a primary urgent care technician to a significant other at home: No Do you presently have visiting nurse or other home services: No Alcohol intake: unknown Patient Tobacco Use Status: Former Tobacco user e-Cigarette/Vaping Use: Former Use service: No Current occupational status: retired Cognitive needs: No Hearing needs: No Vision needs: Yes (rx glasses) Questionnaire Thrive Questionnaire Date Thrive assessed: 10/14/24 JONATHAN-7 AMB Questionnaire JONATHAN-7 Date JONATHAN - 7 assessed: 10/14/24 Source: Developed by Drs. Nigel Garcia, Lizbet Dominguez, Pedrito Weber and colleagues, with an educational te from [employer]. Physical exam (Primary Care) Vital Signs: Last Vital Signs Temp 97.6 F 02/03/25 11:32 Pulse 57 02/03/25 11:32 Resp 16 02/03/25 11:32 BP 116/76 02/03/25 11:32 Pulse Ox 96 02/03/25 11:32 Oxygen Delivery Method Room Air 02/03/25 11:32 BMI result Body Mass Index 20.8 Tobacco/Smoking Status: Tobacco use Status Tobacco use date assessed 10/14/24 02/03/25 11:36 Patient Tobacco Use Status Former Tobacco user 02/03/25 11:36 e-Cigarette/Vaping Use Former Use 02/03/25 11:36 Thrive Assessment: Date of Thrive Assessment Date Thrive assessed 10/14/24 02/03/25 11:36 Coding Level of Care Code Est Pt Level 4 (76507) Diagnoses Spinal stenosis, unspecified spinal region M48.00 Spinal region: unspecified Bipolar 1 disorder F31.9 Primary hypertension I10 Hypertension type: primary hypertension Assessment & Plan Assessment & Plan (1) Spinal stenosis: Code(s): M48.00 - Spinal stenosis, site unspecified Category: Medical Qualifiers: Spinal region: unspecified Qualified Code(s): M48.00 - Spinal stenosis, site unspecified (2) Bipolar 1 disorder: Code(s): F31.9 - Bipolar disorder, unspecified Category: Medical (3) HTN (hypertension): Code(s): I10 - Essential (primary) hypertension Category: Medical Qualifiers: Hypertension type: primary hypertension Qualified Code(s): I10 - Essential (primary) hypertension Plan 74 y/o for follow up Chronic pain-trial lyrica 75mg bid to start and increase to 150mg bid as tolerated Follow up in 3-4 weeks bipolar disorder is stable on current medications Medications: New pregabalin (Lyrica) 150 mg (2 x 75 mg) PO BID 360 caps 1RF Changed From oxycodone Partial Fill upon patient request. 5 mg PO Q8H PRN 56 tabs 0RF pain M47.816 - Spondylosis without myelopathy or radiculopathy, lumbar region To oxycodone Partial Fill upon patient request. 5 mg PO BID M47.816 - Spondylosis without myelopathy or radiculopathy, lumbar region
[2025-02-03 11:32] VITALS: BP 116/76; PULSE 57; RESP 16; TEMP 36.4; O2SAT 96; BMI 20.8
--- OUTSIDE RECORDS SUMMARY | 2025-02-03 12:09 | XMS_ITS | Encounter Summary ---
Author Organization [facility] Address Formerly [facility] [place], [place] [address] [place] [phone] Phone Care Team Providers Care Survey Researcher Name Role Phone Referring, Not Required Primary Care Provider Un available Encounter Details Date Type Department Care Team ([facility] st Contact Info) Description 05/04/2024 Procedure Pass [facility] [address] [place] [address] Social History Tobacco Use Types Packs/Day Years Used Date Smoking Tobacco: Never Smokeless Tobacco: Never Education Answer Date Recorded Are you interested in more education? Not on dominique e 11/01/2022 Are you concerned about learning? Not on file 11/01/2022 No 11/01/2022 No 11/01/2022 Digital Access Answer Date Recorded No 11/30/2022 No 11/30/2022 Reliable internet access at home? Not on file 11/30/2022 Device with a working camera? Not on file Comments Unknown Sex and Gender Information Value Date Recorded Sex Assigned at Female 02/23/2021 1:30 PM EDT Legal Sex Female 11:06 AM EST Gender Identity Female 02/23/2021 1:30 PM EDT Sexual Orientation Not on file documented as of this encounter Plan of Treatment Not on file documented as of this encounter Visit Diagnoses Not on filedocumented in this encounter Care Teams Survey Researcher Relationship Specialty Start Date End Date Referring, Not Required PCP - General 09/11/20 documented as of this encounter Additional Source Comments The information contained in this document represents components of the legal health record. It is not the complete legal health record.[facility]
== END 2025-02-03 11:55 | disposition home or self-care (01) ==
LOC: HO.HMCHD 11:20
PROVIDERS: PCP Internal Medicine; Visit Provider Internal Medicine
DX: M48.00 Spinal stenosis, site unspecified (principal); F31.9 Bipolar disorder, unspecified; I10 Essential (primary) hypertension

== ENCOUNTER → 2025-02-03 11:19 | Outpatient (BNVA) | payer MEDICARE, MEDICAID, SELFPAY | PROVIDERS: PCP Internal Medicine; Visit Provider Internal Medicine | DX: I10 Essential (primary) hypertension (principal); F31.9 Bipolar disorder, unspecified; M48.00 Spinal stenosis, site unspecified; G89.29 Other chronic pain; E03.9 Hypothyroidism, unspecified; Z79.899 Other long term (current) drug therapy | CPT/HCPCS: 99212 ==

== ENCOUNTER 2025-03-23 09:25 | Outpatient (REF) | payer MEDICARE, MEDICAID, SELFPAY ==
[2025-03-23 10:34] LABS: MANUAL DIFF FLAG NO
[2025-03-23 11:05] LABS: Hematocrit 37.9 % (37.0-47.0); Hemoglobin 12.6 g/dl (12.0-16.0); Imm Gran Pct Auto 0.3 % (0.0-0.4); Mean Corpuscular HGB Conc 33.2 g/dl (31.0-35.0); Mean Corpuscular Hemoglobin 31.6 pg (27.0-33.0); Mean Corpuscular Volume 95.0 fL (80.0-98.0); Platelet Count 202 X10*3/uL (160-400); Red Blood Count 3.99 X10*6/uL (4.20-5.50); White Blood Count 8.8 X10*3/uL (4.8-10.8)
[2025-03-23 11:06] LABS: Imm Gran Abs Auto 0.03 X10*3/uL (0.00-0.03); Lymphocytes Absolute Auto 1.9 X10*3/uL (1.2-4.9); NRBC Abs Auto 0.000 X10*3/uL (0.0-0.012); NRBC Pct Auto 0.0 /100WBC (0.0-0.2)
[2025-03-23 11:20] LABS: Total Hemoglobin (HGBA1C) 3325.2629 umol/L
[2025-03-23 11:36] LABS: Alanine Aminotransferase 30 U/L (0-31); Albumin Level 4.5 g/dL (3.5-5.0); Alkaline Phosphatase 49 U/L (39-117); Anion Gap 10 (12-20); Aspartate Amino Transferase 30 U/L (5-31); Blood Urea Nitrogen 25 mg/dL (9-16); Calcium 10.1 mg/dL (8.4-10.2); Carbon Dioxide 28 mmol/L (22-29); Chloride 111 mmol/L (96-108); Cholesterol 189 mg/dL (<200); Estimated Glomerular Filt Rate 36; HDL Cholesterol 69 mg/dL (>40); Potassium 4.3 mmol/L (3.3-5.1); Sodium 145 mmol/L (135-145); Total Protein 7.3 g/dL (6.5-8.0); Triglycerides 94 mg/dL (<150)
== END 2025-03-23 09:26 | disposition home or self-care (01) ==
LOC: HO.LAB 09:25
PROVIDERS: PCP Student in an Organized Health Care Education/Training Program; Visit Provider Student in an Organized Health Care Education/Training Program
DX: Z13.1 Encounter for screening for diabetes mellitus (principal); I10 Essential (primary) hypertension; E03.9 Hypothyroidism, unspecified; M47.816 Spondylosis without myelopathy or radiculopathy, lumbar region; M54.16 Radiculopathy, lumbar region; R42 Dizziness and giddiness; F31.9 Bipolar disorder, unspecified; Z87.891 Personal history of nicotine dependence
CPT/HCPCS: 36415; 80053; 80061; 82306; 83036; 84443; 85025; 99212

== ENCOUNTER 2025-03-23 09:25 | Outpatient (AMB) | payer MEDICARE, MEDICAID, SELFPAY ==
--- NOTE | 2025-03-23 09:26 | A.OFFPC_ITS ---
Vital Signs 03/23/25 09:34 Height 5 ft 4 in Weight 119 lb BMI 20.4 BP 126/82 Blood Pressure Location Lt brachial Position Sitting Respiration 18 Pulse 61 Pulse Source Pulse Oximeter Temp 97.5 F Temp Source Temporal Artery Scan Pulse Oximetry (%) 98 Oxygen Delivery Method Room Air Intake Visit Reasons: 2 month f/u Italian Tutor Required: No Accompanied by: Sister Allergies No Known Allergies Allergy (Verified 03/23/25 09:27) Medication List - Last Reconciled 03/23/25 by Raphael Bauer MD acetaminophen 1,000 mg PO TID calcium citrate-vitamin D3 315 mg-6.25 mcg (250 unit) (Citracal + Vitamin D Maximum) 1 tab PO DAILY cholecalciferol (vitamin D3) 50 mcg PO DAILY estradiol-norethindrone acet 1-0.5 mg 1 tab PO DAILY fluticasone propionate 50 mcg/actuation 2 sprays intranasal DAILY gabapentin 100 mg PO TID 30 days guaifenesin ER (Mucinex) 1,200 mg PO .every other day levothyroxine 50 mcg PO DAILY metoprolol tartrate 50 mg PO BID qyxjauvqnydw-teamvuau-ysfvom 1 tab PO DAILY olanzapine 15 mg PO BEDTIME peg 400-propylene glycol (PF) 0.4-0.3 % (Systane (PF)) 1 drp ophthalmic (eye) BID Tobacco use date assessed: 10/14/24 Dental Screening Dental Screen Date: 10/14/24 HPI HPI Comments History of Present Illness Details The patient is a 75-year-old female presenting with chronic pain management concerns. She reports experiencing dizziness and has been suffering from it for over five years, attributing it to poor eyesight and a spine problem. The patient explains that she has a herniated disc in her spine but is hesitant to undergo surgery due to feeling emotionally and physically weak. She reports being diagnosed with bipolar disorder and mentions feeling unable to cope with the stress of surgery. The patient's vision problems include glaucoma, tunnel vision, and double vision, which compound her dizziness. She has also experienced nerve-related pain and neuropathy affecting her feet, impacting her balance. The dizziness is not attributed solely to ear or eye issues, as per consultations in the past. The patient has been on oxycodone for pain relief, which she dislikes due to its side effects, such as sleepiness and potential risk of respiratory depression. She has intermittently stopped using it, resorting to Tylenol for pain management. Previously prescribed medications like Lyrica did not suit her. She has received feedback from various specialists concerning her spine and balance issues, with surgery being a recurring recommendation, but she remains resistant to this option. Despite her hesitation towards surgery, her support system is advocating for surgical evaluation in a different city, like [place], for her comfort. There have been discussions regarding the size and suitability of the disc implant shown by a spine surgeon, which worried her due to perceived size mismatch. Medical History: - Herniated Intervertebral Disc - Glaucoma - Tunnel Vision - Double Vision - Bipolar Disorder - Neuropathy - Osteoporosis (previously diagnosed but current scans are normal) - Chronic Dizziness - Hypertension Surgical History: - No past surgeries discussed. Medications: - Oxycodone 15 mg twice a day for chroni c pain (patient expresses dislike) - Tylenol for pain management - Metoprolol Tartrate 50 mg for hyperten fabiana - Levothyroxine 50 mcg for thyroid manag ement Diagnostic Results: - Bone density test in November: Normal findi ngs, no osteoporosis present in the lumbar spine. Social: - Lives alone - Has support from family but doesn't li ve with them - Diet involves regular calcium intake [facility] Medical History (Updated 03/23/25 @ 10:06 by Raphael Bauer MD) Dizziness, nonspecific Glaucoma Arthritis Back pain Hypothyroid HTN (hypertension) Vision abnormalities Bipolar 1 disorder Herniated disc Surgical History Hx of cataract surgery H/O oral surgery Family History Mother Heart muscle disorder caused by another medical condition Father Heart problem Social History Housing: House Are you a primary home health care worker to a significant other at home: No Do you presently have visiting nurse or other home services: No Alcohol intake: unknown Patient Tobacco Use Status: Former Tobacco user e-Cigarette/Vaping Use: Former Use service: No Current occupational status: retired Cognitive needs: No Hearing needs: No Vision needs: Yes (rx glasses) Questionnaire Thrive Questionnaire Date Thrive assessed: 10/14/24 JONATHAN-7 AMB Questionnaire JONATHAN-7 Date JONATHAN - 7 assessed: 10/14/24 Source: Developed by Drs. Nigel Garcia, Lizbet Dominguez, Pedrito Weber and colleagues, with an educational te from [employer]. Review of Systems Const Details: - Ophthalmologic: Reports glaucoma, tunnel vision, and double vision. - Neurologic: Reports dizziness and neuropathy in feet - Musculoskeletal: Reports chronic pain. - Psychiatric: Reports bipolar disorder. - General: Denies adhering to any routine medication for pain other than Tylenol. All systems reviewed & are unremarkable except as reviewed in HPI and above Physical exam (Primary Care) Vital Signs: Last Vital Signs Temp 97.5 F 03/23/25 09:34 Pulse 61 03/23/25 09:34 Resp 18 03/23/25 09:34 BP 126/82 03/23/25 09:34 Pulse Ox 98 03/23/25 09:34 Oxygen Delivery Method Room Air 03/23/25 09:34 BMI result Body Mass Index 20.4 Tobacco/Smoking Status: Tobacco use Status Tobacco use date assessed 10/14/24 03/23/25 09:37 Patient Tobacco Use Status Former Tobacco user 03/23/25 09:37 e-Cigarette/Vaping Use Former Use 03/23/25 09:37 Thrive Assessment: Date of Thrive Assessment Date Thrive assessed 10/14/24 03/23/25 09:37 Const Other: General: +Alert and oriented, Well nourished, No acute distress. Eye: Pupils are equal, round and reactive to light, Intact accommodation, Extraocular movements are intact, Normal conjunctiva, Vision impaired due to glaucoma, tunnel vision, and double vision. HENT: Normocephalic, Atraumatic, Tympanic membranes are clear, Normal hearing, Oral mucosa is moist, No pharyngeal erythema, Ear canals patent. Respiratory: Lungs CTA bilaterally, No wheeze, Respirations are non-labored. Cardiovascular: Regular rate, Regular rhythm, S1 auscultated, S2 auscultated, No murmur, Good pulses equal in all extremities, Normal peripheral perfusion, No edema. Gastrointestinal: Soft, Non-tender, Non-distended, Normal bowel sounds, No or ganomegaly. Musculoskeletal: Limited range of motion due to back pain, Normal strength, No tenderness, No swelling, No deformity, Normal gait. Integumentary: Warm, Dry, [place], Intact. Neurologic: Alert, Oriented, Normal sensory, Normal motor function, No focal defects, Cranial Nerves II-XII are grossly intact, Normal deep tendon reflexes, Dizziness reported, Balance issues due to neuropathy. Psychiatric: Cooperative, Appropriate mood & affect, Normal judgment, Bipolar disorder reported. Coding Level of Care Code Est Pt Level 4 (72682) Complex EM visit Add On G2211 Diagnoses Primary hypertension I10 Hypertension type: primary hypertension Hypothyroidism, unspecified type E03.9 Hypothyroidism type: unspecified Lumbar spondylosis M47.816 Radiculopathy, lumbar region M54.16 Dizziness, nonspecific R42 Bipolar 1 disorder F31.9 Assessment & Plan Assessment & Plan (1) HTN (hypertension): Comment: Continue home regimen of metoprolol tartrate 50 mg b.i.d. Pressure is well controlled in clinic today Code(s): I10 - Essential (primary) hypertension Category: Medical Qualifiers: Hypertension type: primary hypertension Qualified Code(s): I10 - Essential (primary) hypertension (2) Hypothyroid: Comment: Last TSH within normal limits on levothyroxine 50 mcg daily We will obtain your labs today Code(s): E03.9 - Hypothyroidism, unspecified Category: Medical Qualifiers: Hypothyroidism type: unspecified Qualified Code(s): E03.9 - Hypothyroidism, unspecified (3) Lumbar spondylosis: Comment: - Discussed surgical options to alleviate pain and improve functionality. - Encouraged reconsideration of surgery for potential relief from chronic pain and deterioration. - Educated about minimally invasive surgical techniques available. Code(s): M47.816 - Spondylosis without myelopathy or radiculopathy, lumbar region Category: Medical (4) Radiculopathy, lumbar region: Comment: - Ceased prescription of oxycodone to prevent adverse effects and dependency. (Patient has been off medication for over a month) - Transition to gabapentin 100 mg three times daily for neuropathic pain relief. - Educated about the safety and benefits of gabapentin in managing neuropathic pain. Code(s): M54.16 - Radiculopathy, lumbar region Category: Medical (5) Dizziness, nonspecific: Comment: - Continued addressing contributing factors like neuropathy and visual disturbances. Code(s): R42 - Dizziness and giddiness Category: Medical (6) Bipolar 1 disorder: Comment: - Acknowledged her emotional and physical state affecting her decision-making. - Continue follow up with Behavioral Health & Continue Olanzapine Code(s): F31.9 - Bipolar disorder, unspecified Category: Medical Plan: Health Maintenance: - Advised regular monitoring of blood sugar, liver function, and thyroid levels. - Encouraged continued healthy calcium intake to maintain bone density. Plan During the office visit, I discussed with the patient the chronic pain stemming from her herniated disc and the potential benefits of pursuing surgical intervention. I advised her about the risks associated with prolonged opioid use, emphasizing the complications that could arise due to her vision and dizziness. I proposed transitioning her to gabapentin for her neuropathic pain, detailing its favorable safety profile. I also highlighted the importance of a spine surgery consultation, ideally nearby to ensure family presence post- surgery. We reviewed her bone density results together, reassuring her about the absence of osteoporosis. A follow-up on her thyroid status and blood work was scheduled. Orders: Orders Comprehensive Met. Panel Today E03.9 - Hypothyroidism, unspecified, I10 - Essential (primary) hypertension Hemoglobin A1c Today E03.9 - Hypothyroidism, unspecified, I10 - Essential (primary) hypertension Lipid Panel Today E03.9 - Hypothyroidism, unspecified, I10 - Essential (primary) hypertension TSH reflex Free T4 Today E03.9 - Hypothyroidism, unspecified, I10 - Essential (primary) hypertension Vitamin D 25-OH Total Today E03.9 - Hypothyroidism, unspecified, I10 - Es sential (primary) hypertension Complete Blood Count Auto Diff Today E03.9 - Hypothyroidism, unspecified, I10 - Essential (primary) hypertension Medications: New gabapentin 100 mg PO TID 90 caps 0RF 30 days M47.816 - Spondylosis without myelopathy or radiculopathy, lumbar region, M54.16 - Radiculopathy, lumbar region Patient Instructions: - Start taking gabapentin 100 mg three times a day for pain. - Continue taking Tylenol for pain as needed; do not exceed 3000 mg per day. - Schedule a follow-up appointment in four weeks for medication review. - Visit the lab downstairs today for blood work to monitor liver function and thyroid levels. - Consider surgery for herniated disc as advised by specialists. - Maintain calcium intake for bone health. - Seek immediate medical attention if experiencing severe side effects from medications.
[2025-03-23 09:34] VITALS: BP 126/82; PULSE 61; RESP 18; TEMP 36.4; O2SAT 98; BMI 20.4
--- OUTSIDE RECORDS SUMMARY | 2025-03-23 11:06 | XMS_ITS | Encounter Summary ---
Author Organization [facility] Address [address] [place] [phone] Phone Care Team Providers Care Telecommunicator Name Role Phone Referring, Not Required Primary Care Provider Un available Reason for Referral * Outpatient Procedure - Closed Specialty Diagnoses / Procedures Referred By Contac t Referred To Contact Diagnoses Cerebrovascular accident (CVA), unspecified mechanism Procedures Adult Echo TTE Agapito Morris MD [address] [place] [address], [address] [place] [address] Phone: tel: fax: mailto:[email or web address] Referral ID Status Reason Start Date Expiration Date Visits Re quested Visits Authorized [id number] Closed 05/04/2024 04/24/2025 1 1 * Outpatient Procedure - Closed Specialty Diagnoses / Procedures Referred By Contac t Referred To Contact Radiology Diagnoses Cerebrovascular accident (CVA), unspecified mechanism Procedures US Carotid Duplex Complete (Bilateral) Agapito Morris MD [address] [place] [address], [address] [place] [phone] Phone: tel: fax: mailto: Referral ID Status Reason Start Date Expiration Date Visits Re quested Visits Authorized [id number] Closed 05/04/2024 05/04/2025 1 1 Encounter Details Date Type Department Care Team (Latest Contact Info) Description 05/04/2024 Transcribe Orders Virtual Department [address] [place] [phone] Agapito Morris MD [address] [place] [address], [address] [place] [address] [email or web address] Cerebrovascular accident (CVA), unspecified mechanism (Primary Dx) Social History Tobacco Use Types Packs/Day Years [...] on file documented as of this encounter Results * US Carotid Duplex Complete (Bilateral) (05/28/2024 11:59 AM EST) Anatomical Region Laterality Modality Heart, Thoracic Vasculature, Neck Ultrasound 05/31/2024 8:58 AM EST Impressions 05/31/2024 11:53 AM EST 1. <50% stenosis noted in the right internal carotid artery. 2. <50% stenosis noted in the left internal carotid artery. 3. No stenosis noted in the common carotid arteries bilaterally. 4. Unremarkable external carotid arteries bilaterally. 5. Antegrade flow in the bilateral cervical vertebral arteries. 6. Unremarkable subclavian arteries bilaterally. STENOSIS: Internal carotid artery stenosis by duplex ultrasonography has been validated by comparing findings with angiographic stenosis. NASCET methods were used, where the most severe stenosis represents the numerator, and the normal internal carotid artery diameter distal to the stenosis where the christianson are parallel represents the denominator. Narrative 05/31/2024 11:53 AM [facility] CAROTID DUPLEX COMPLETE (BILATERAL) Referring clinician's provided indication for this examination in Epic: Outside Radiology Order; cva TECHNIQUE: A duplex ultrasound evaluation of the common carotid, internal carotid, external carotid, vertebral, and subclavian arteries was performed using katz scale, color duplex and spectral Doppler analysis. COMPARISON: No relevant prior examinations FINDINGS: Exam Quality: Technically adequate exam demonstrates: RIGHT Common Carotid Artery (cm/s): Proximal Systolic: 76 Proximal Diastolic: 22 Mid Systolic: 71 Mid Diastolic: 20 Distal Systolic: 57 Distal Diastolic: 23 Internal Carotid Artery (cm/s): Proximal Systolic: 50 Proximal Diastolic: 21 Mid Systolic: 106 Mid Diastolic: 40 Distal Systolic: 93 Distal Diastolic: 37 External Carotid Artery (cm/s): Systolic: 91 Diastolic: 14 Vertebral Artery (cm/s): Systolic: 32 Diastolic: 9 Subclavian Artery (cm/s): Systolic: 79 Diastolic: 0 ICA/CCA Ratio: 1.9 ICA Stenosis: Less than 50% ICA Plaque: Heterogeneous LEFT Common Carotid Artery (cm/s): Proximal Systolic: 83 Proximal Diastolic: 27 Mid Systolic: 69 Mid Diastolic: 22 Distal Systolic: 52 Distal Diastolic: 20 Internal Carotid Artery (cm/s): Proximal Systolic: 55 Proximal Diastolic: 26 Mid Systolic: 97 Mid Diastolic: 41 Distal Systolic: 97 Distal Diastolic: 43 External Carotid Artery (cm/s): Systolic: 47 Diastolic: 8 Vertebral Artery (cm/s): Systolic: 41 Diastolic: 14 Subclavian Artery(cm/s): Systolic: 76 Diastolic: 0 ICA/CCA Ratio: 1.9 ICA Stenosis: Less than 50% ICA Plaque: Heterogeneous Abbreviations: CCA = Common Carotid Artery. ICA = Internal Carotid Artery. ECA = External Carotid Artery. Vert = Vertebral Artery. ICA/CCA Ratio = maximal ICA PSV divided by the distal CCA PSV. DIRECT TEST FINDINGS: Right: Doppler flow velocities and waveform contours demonstrate no hemodynamically significant elevation throughout the internal carotid artery. No plaque is visualized in the common carotid artery. Unremarkable external carotid artery. Antegrade flow is noted in the vertebral artery. The subclavian artery demonstrates no elevated velocities. Left: Doppler flow velocities and waveform contours demonstrate no hemodynamically significant elevation throughout the internal carotid artery. No plaque is visualized in the common carotid artery. Unremarkable external carotid artery. Antegrade flow is noted in the vertebral artery. The subclavian artery demonstrates no elevated velocities. Procedure Note Beena Henry MD - 05/31/2024 US CAROTID DUPLEX COMPLETE (BILATERAL) Referring clinician's provided indication for this examination in Epic:Outside Radiology Order; cva TECHNIQUE: A duplex ultrasound evaluation of the common carotid, internalcarotid, external carotid, vertebral, and subclavian arteries wasperformed using katz scale, color duplex and spectral Doppler analysis. COMPARISON: No relevant prior examinations FINDINGS: Exam Quality: Technically adequate exam demonstrates: RIGHT Common Carotid Artery (cm/s): Proximal Systolic: 76 Proximal Diastolic: 22 Mid Systolic: 71 Mid Diastolic: 20 Distal Systolic: 57 Distal Diastolic: 23 Internal Carotid Artery (cm/s): Proximal Systolic: 50 Proximal Diastolic: 21 Mid Systolic: 106 Mid Diastolic: 40 Distal Systolic: 93 Distal Diastolic: 37 External Carotid Artery (cm/s): Systolic: 91 Diastolic: 14 Vertebral Artery (cm/s): Systolic: 32 Diastolic: 9 Subclavian Artery (cm/s): Systolic: 79 Diastolic: 0 ICA/CCA Ratio: 1.9 ICA Stenosis: Less than 50% ICA Plaque: Heterogeneous LEFT Common Carotid Artery (cm/s): Proximal Systolic: 83 Proximal Diastolic: 27 Mid Systolic: 69 Mid Diastolic: 22 Distal Systolic: 52 Distal Diastolic: 20 Internal Carotid Artery (cm/s): Proximal Systolic: 55 Proximal Diastolic: 26 Mid Systolic: 97 Mid Diastolic: 41 Distal Systolic: 97 Distal Diastolic: 43 External Carotid Artery (cm/s): Systolic: 47 Diastolic: 8 Vertebral Artery (cm/s): Systolic: 41 Diastolic: 14 Subclavian Artery(cm/s): Systolic: 76 Diastolic: 0 ICA/CCA Ratio: 1.9 ICA Stenosis: Less than 50% ICA Plaque: Heterogeneous Abbreviations: CCA = Common Carotid Artery. ICA = Internal Carotid Artery. ECA =External Carotid Artery. Vert = Vertebral Artery. ICA/CCA Ratio = maximalICA PSV divided by the distal CCA PSV. DIRECT TEST FINDINGS: Right: Doppler flow velocities and waveform contours demonstrate nohemodynamically significant elevation throughout the internal carotidartery. No plaque is visualized in the common carotid artery. Unremarkableexternal carotid artery. Antegrade flow is noted in the vertebral artery.The subclavian artery demonstrates no elevated velocities. Left: Doppler flow velocities and waveform contours demonstrate nohemodynamically significant elevation throughout the internal carotidartery. No plaque is visualized in the common carotid artery. Unremarkableexternal carotid artery. Antegrade flow is noted in the vertebral artery.The subclavian artery demonstrates no elevated velocities. IMPRESSION: 1. <50% stenosis noted in the right internal carotid artery. 2. <50% stenosis noted in the left internal carotid artery. 3. No stenosis noted in the common carotid arteries bilaterally. 4. Unremarkable external carotid arteries bilaterally. 5. Antegrade flow in the bilateral cervical vertebral arteries. 6. Unremarkable subclavian arteries bilaterally. STENOSIS: Internal carotid artery stenosis by duplex ultrasonography hasbeen validated by comparing findings with angiographic stenosis. NASCETmethods were used, where the most severe stenosis represents thenumerator, and the normal internal carotid artery diameter distal to thestenosis where the christianson are parallel represents the denominator. us Agapito Morris MD US NEUROVASCULAR Final Re sult * TTE COMPREHENSIVE (05/28/2024 10:44 AM EST) Body Surface Area 1.54 m2 Height 163 cm Weight 52 kg Systolic BP 171 mmHg Diastolic BP 97 mmHg Left Atrium Dimension Anterior-Posterior 25 15 - 40 mm Interventricular Septum Thickness 11 6 - 11 mm Left Ventricle Internal Diameter End Diastole 42 37 - 52 mm Left Ventricle Internal Diameter End Systole 27 <35 mm Left Ventricular Outflow Tract Diameter 18.0 mm LVOT VTI REST 138.0 mm Left Ventricular Outflow Tract Velocity 0.6 m/s Left Ventricular Outflow Tract Gradient at Rest 1 mmHg Left Ventricular Posterior Wall Thickness 9 6 - 11 mm Ejection Fraction 70 50 - 75 Percent Aortic Valve Mean Gradient 2 mmHg Aortic Valve Time Velocity Integral 219.0 mm Aortic Valve Peak Velocity 102.0 cm/s Aortic Valve Peak Gradient 4 mmHg Aortic Sinus Diameter 31 <40 mm Ascending Aorta Diameter 30 <36 mm Inferior Vena Cava Diameter 16 <21 mm Mitral Valve A Wave Speed 75.0 cm/s Mitral Valve E Wave Speed 44.6 cm/s Right Ventricle Basal Diameter 28 25 - 41 mm Tricuspid Valve Peak Velocity 2.1 m/s Raw LV EF% 59 % Relative Wall Thickness 0.43 0.22 - 0.42 Aortic Valve Prosthetic Peak Gradient 4 mmHg Aortic Valve Prosthetic Mean Gradient 2 mmHg Aortic Valve Sinus Index by BSA 20 mm/m2 Aorta Sinus Index by Height 1.90 cm/m Aorta Sinus CSA index by Height 4.63 cm2/m Ascending Aorta Index 19 mm/m2 Asc Aorta CSA Index by Height 4.33 cm2/m Right Ventricle to Right Atrium Pressure Gradient 18 mmHg Right Ventricle Peak Systolic Pressure (Assuming RAP 10) 28 mmHg MGB CV ECHO TV RVSP (ASSUMING RAP OF 5) 23 mmHg RVSP (Exclusive of RAP) 18 mmHg Ascending Aorta Index 19 mm Aortic Sinus Index 20 mm Ascending Aorta Diameter 19 mm Aortic Valve Sinus Index 1 20 19 - 27 mm AO ASC DIAM BSA INDEX 19.48 Left Atrial Volume Index 13 16 - 34 mL/m2 Right Ventricle Peak Systolic Pressure 21 mmHg Left Ventricle Ea Lateral Wave Speed 5.8 cm/s Right Ventricle TAPSE 16 >=17 mm MV E/E' Tissue Velocity Lateral 7.69 Right Ventricle Pulse Doppler S Wave 12.4 >=9.5 cm/s Left Ventricle E Wave Speed 44.6 cm/s Left Ventricle A Wave Speed 75.0 cm/s MV E/A ratio 0.6 Left Ventricle Ea Septal Wave Speed 4.6 cm/s MV E/e' septal 9.70 Left Ventricle E/e' Average 8.7 Left Atrial Volume 20 mL Left Atrial Volume Index by Height 12 mL/m Right Atrium Volume 21 mL Right Atrium Volume Index 14 15 - 27 mL/m2 Right Atrium Pressure Estimated 3 mmHg Echo E/Ea 9.70 Anatomical Region Laterality Modality Heart Ultrasound Narrative 05/29/2024 8:50 AM EST Images from the original result were not included. 1. This patient was imaged during normal sinus rhythm. The estimated ejection fraction is normal. Left ventricular thickness is normal diastolic function is normal and there are no regional wall motion abnormalities. 2. Normal RV size and function. 3. Trileaflet aortic valve with no evidence of aortic stenosis, the ascending aortic root is normal size. 4. Trace mitral and mild tricuspid insufficiency, the PA pressure is normal. 5. Normal pericardium and no prior echo available for comparison. Left Ventricle The left ventricle is normal in size. There is borderline concentric hypertrophy. The interventricular septal thickness is 11 mm. The LV posterior wall thickness is 9 mm. There is normal left ventricular systolic function. The LV ejection fraction is 70% (calculated via the single dimension method). There are no wall motion abnormalities. LV diastolic function appears within normal limits for age. The E/A ratio is 0.6. The e' septal wave velocity is 4.6 cm/s. The e' lateral wave velocity is 5.8 cm/s. The average E/e' ratio is 8.7. Right Ventricle The right ventricle is normal in size. The RV basal dimension is 28 mm. There is normal right ventricular systolic function. TAPSE is 16 mm. RV S' wave is 12.4 cm/s. Left Atrium The left atrium is normal in size. The left atrial volume is 20 mL. There are normal flow patterns in the pulmonary vein. Right Atrium The right atrium is normal in size. The right atrial volume is 21 mL. The IVC is normal in size with normal inspiratory collapse. This is consistent with normal RA pressure. The IVC diameter is 16 mm (normal = 21 mm). Hepatic veins are normal in size. Mitral Valve There is mild mitral valve thickening. There is mitral annular calcification. There is no mitral stenosis. There is trace mitral regurgitation. Tricuspid Valve The tricuspid valve appears normal. There is no tricuspid stenosis. There is mild tricuspid regurgitation with a centrally directed jet. The RV systolic pressure was calculated at 21 mmHg (using TR peak velocity of 2.1 m/s and assuming an RA pressure of 3 mmHg). Aortic Valve The aortic valve is tricuspid. There is leaflet thickening without stenosis. There is no aortic stenosis. The peak and mean aortic valve gradients are 4 mmHg and 2 mmHg respectively. There is no aortic regurgitation. The visualized portions of the thoracic aorta appear normal in size. Pulmonic Valve The pulmonic valve appears normal. Pericardium There is no pericardial effusion. There are no pleural effusions. General Findings The image quality was good (2). Technique(s) used in the evaluation: Color flow Doppler and Spectral Doppler. The predominant rhythm during the study was sinus. Comparison Findings There are no prior studies for comparison. IAS/IVS The interatrial septum appears normal. There is no evidence of patent foramen ovale (PFO). The interventricular septum appears normal. There is no evidence of a ventricular septal defect. us Agapito Morris MD CV ECHO ORDERABLES Final Res ult documented in this encounter Visit Diagnoses Diagnosis Cerebrovascular accident (CVA), unspecified mechanism- Primary Cerebrovascular accident (CVA), unspecified mechanism Cerebrovascular accident (CVA), unspecified mechanism documented in this encounter Care Teams Telecommunicator Relationship Specialty Start Date End Date Referring, Not Required PCP - General 09/11/20 documented as of this encounter Additional Source Comments The information contained in this document represents components of the legal health record. It is not the complete legal health record.[facility]
--- OUTSIDE RECORDS SUMMARY | 2025-03-23 11:06 | XMS_ITS | Encounter Summary ---
Author Organization [facility] Address [address] [address] Phone Care Team Providers Care Skiing Instructor Name Role Phone Referring, Not Required Primary Care Provider Un available Reason for Visit * Reason Comments Medication Refill Encounter Details Date Type Department Care Team ([facility] st Contact Info) Description 08/30/2021 Refill [facility] [address] [address] Rachel Amanda MD [address] [place] [phone] [email or web address] Medication Refill Social History Tobacco Use Types Packs/Day Years Used Date Smoking Tobacco: Never Smokeless Tobacco: Never Comments Unknown Sex and Gender Information Value Date Recorded Sex Assigned at Female 02/23/2021 1:30 PM EDT Legal Sex Female 11:06 AM EST Gender Identity Female 02/23/2021 1:30 PM EDT Sexual Orientation Not on file documented as of this encounter Plan of Treatment Not on file documented as of this encounter Visit Diagnoses Not on filedocumented in this encounter Care Teams Skiing Instructor Relationship Specialty Start Date End Date Referring, Not Required PCP - General 09/11/20 documented as of this encounter Additional Source Comments The information contained in this document represents components of the legal health record. It is not the complete legal health record.[facility]
--- OUTSIDE RECORDS SUMMARY | 2025-03-23 11:06 | XMS_ITS | Encounter Summary ---
Author Organization [facility] Address [facility] [address] [place] [phone] Phone Care Team Providers Care Dissolver Operator Name Role Phone Referring, Not Required Primary Care Provider Un available Encounter Details Date Type Department Care Team ([facility] st Contact Info) Description 05/04/2024 Procedure [facility] [address] [place] [address] Social History Tobacco Use Types Packs/Day Years [...] on filedocumented in this encounter Care Teams Dissolver Operator Relationship Specialty Start Date End Date Referring, Not Required PCP - General 09/11/20 documented as of this encounter Additional Source Comments The information contained in this document represents components of the legal health record. It is not the complete legal health record.[facility]
--- OUTSIDE RECORDS SUMMARY | 2025-03-23 11:06 | XMS_ITS | Clinical Summary ---
Author Organization [facility] Address [address] [place] [address] Phone Care Team Providers Care Bed Maker Name Role Phone Referring, Not Required Primary Care Provider Un available Allergies No known active allergies Medications levothyroxine sodium (LEVOTHYROXINE ORAL) Take by mouth. Activ e OLANZAPINE ORAL Take by mouth. Active NORETHINDRONE-E THIN ESTRADIOL ORAL Take by mouth. Activ e diclofenac sodium (VOLTAREN) 1 % Gel Apply topically 4 (four) times a day. Active fluticasone propionate (FLONASE) 50 mcg/actuation nasal spray 1 spray by Nasal route daily. Active METOPROLOL TARTRATE ORAL Take by mouth. A ctive Active Problems No known active problems Family History Medical History Relation Comments Glaucoma Paternal Uncle Relation Status Comments Paternal Uncle Social History Tobacco Use Types Packs/Day Years [...] PM EDT Sexual Orientation Not on file Plan of Treatment Health Maintenance Due Date Last Done Comments Adult Td,Tdap Booster 1950 TSH LEVEL 1950 DEPRESSION SCREENING 1963 HEPATITIS C SCREENING 1969 LIPID PANEL 1969 MAMMOGRAM 1991 COLOGUARD 1996 COLONOSCOPY 1996 COLORECTAL CANCER SCREENING 1996 FIT TEST 1996 FOBT 1996 SIGMOIDOSCOPY 1996 VIRTUAL COLONOSCOPY 1996 PNEUMOCOCCAL VACCINES (50+ years) (1 of 1 - PCV) 2001 ZOSTER VACCINES (1 of 2) 2001 OSTEOPOROSIS SCREENING INITI AL (ONE-TIME) 2016 INFLUENZA VACCINE (#1) 2025 04/11/2020 COVID-19 VACCINE (3 - 2024-2 6 season) 2025 10/06/2020, 09/08/2020 RSV VACCINE (1 - 1-dose 75+ series) 2026 SMOKING STATUS SCREENING (On ce After 26 Yrs) Completed 05/17/2021 HEPATITIS A VACCINES Aged Out No long er eligible based on patient's age to complete this topic HIB VACCINES Aged Out No longer eligi ble based on patient's age to complete this topic MENINGOCOCCAL VACCINES (ACWY) Aged Out No longer eligible based on patient's age to complete this topic MENINGOCOCCAL VACCINES (B) Aged Out N o longer eligible based on patient's age to complete this topic Medical Devices Not on file Insurance * Guarantor: Cyndee Rodríguez Account Type Relation to Patient Date of Phone Billing Address Personal/Family Self 1950 [address] [facility] [address] [place] [address] MEDICARE PART A & B [facility] MEDICARE PART A & B [facility]IC[facility] PART A & [place] PART A & [facility]IC[facility] [place] A [place] [address] MEDICARE PART A & B [facility] MEDICARE PART A [place] [address] MEDICARE PART A & [place] * Guarantor: Cyndee Rodríguez Account Type Relation to Patient Date of Phone Billing Address Personal/Family Self 1950 [address] [facility] [address] [place] [id number] MEDICARE PART A & B [facility] Care Teams Bed Maker Relationship Specialty Start Date End Date Referring, Not Required PCP - General 09/11/20 Additional Source Comments The information contained in this document represents components of the legal health record. It is not the complete legal health record.[facility]
== END 2025-03-23 10:09 | disposition home or self-care (01) ==
LOC: HO.HMCHD 09:25
PROVIDERS: PCP Student in an Organized Health Care Education/Training Program; Visit Provider Student in an Organized Health Care Education/Training Program
DX: I10 Essential (primary) hypertension (principal); E03.9 Hypothyroidism, unspecified; M47.816 Spondylosis without myelopathy or radiculopathy, lumbar region; M54.16 Radiculopathy, lumbar region; R42 Dizziness and giddiness; F31.9 Bipolar disorder, unspecified

== ENCOUNTER 2025-04-07 11:09 | Outpatient (REF) | payer MEDICARE, MEDICAID, SELFPAY ==
--- OUTSIDE RECORDS SUMMARY | 2025-04-07 13:04 | XMS_ITS | Encounter Summary ---
Author Organization [facility] Address [address] [place] [address] Phone Care Team Providers Care Train Station Server Name Role Phone Referring, Not Required Primary Care Provider Un available Reason for Referral * Outpatient Procedure - Closed Specialty Diagnoses / Procedures Referred By Contac t Referred To Contact Diagnoses Cerebrovascular accident (CVA), unspecified mechanism Procedures Adult Echo TTE Agapito Morris MD [address] [place] [address], [address] [place] [address] Phone: tel: fax: mailto: Referral ID Status Reason Start Date Expiration Date Visits Re quested Visits Authorized [id number] Closed 05/04/2024 04/24/2025 1 1 * Outpatient Procedure - Closed Specialty Diagnoses / Procedures Referred By Contac t Referred To Contact Radiology Diagnoses Cerebrovascular accident (CVA), unspecified mechanism Procedures US Carotid Duplex Complete (Bilateral) Agapito Morris MD [address] [place] [address], [address] [place] [address] Phone: tel: fax: mailto:[email or web address] Referral ID Status Reason Start Date Expiration Date Visits Re quested Visits Authorized [id number] Closed 05/04/2024 05/04/2025 1 1 Encounter Details Date Type Department Care Team (Latest Contact Info) Description 05/04/2024 Transcribe Orders Virtual Department [address] [place] [phone] Agapito Morris MD [address] [place] [address], [address] [place] [address] [email or web address] Cerebrovascular accident (CVA), unspecified mechanism (Primary [...] represents the denominator. Narrative 05/31/2024 11:53 AM [facility] CAROTID DUPLEX COMPLETE (BILATERAL) Referring clinician's provided [...] mechanism documented in this encounter Care Teams Train Station Server Relationship Specialty Start Date End Date Referring, Not Required PCP - General 09/11/20 documented as of this encounter Additional Source Comments The information contained in this document represents components of the legal health record. It is not the complete legal health record.[facility]
--- OUTSIDE RECORDS SUMMARY | 2025-04-07 13:04 | XMS_ITS | Encounter Summary ---
Author Organization [facility] Address [address] [address] Phone Care Team Providers Care Double End Tenon Operator Name Role Phone Referring, Not Required Primary Care Provider Un available Reason for Visit * Reason Comments Medication Refill Encounter Details Date Type Department Care Team ([facility] st Contact Info) Description 08/30/2021 Refill [facility] [address] [address] Rachel Amanda MD [address] [place] [phone] [email or web address] Medication Refill Social History Tobacco [...] on filedocumented in this encounter Care Teams Double End Tenon Operator Relationship Specialty Start Date End Date Referring, Not Required PCP - General 09/11/20 documented as of this encounter Additional Source Comments The information contained in this document represents components of the legal health record. It is not the complete legal health record.[facility]
--- OUTSIDE RECORDS SUMMARY | 2025-04-07 13:04 | XMS_ITS | Encounter Summary ---
Author Organization [facility] Address [facility]iatric hospital [facility] [address] [place] [phone] Phone Care Team Providers Care Stove Bottom Worker Name Role Phone Referring, Not Required Primary Care Provider Un available Encounter Details Date Type Department Care Team ([facility] st Contact Info) Description 05/04/2024 Procedure Pass [facility] [address] [place] [address] Social History Tobacco Use Types Packs/Day Years [...] on filedocumented in this encounter Care Teams Stove Bottom Worker Relationship Specialty Start Date End Date Referring, Not Required PCP - General 09/11/20 documented as of this encounter Additional Source Comments The information contained in this document represents components of the legal health record. It is not the complete legal health record.[facility]
--- OUTSIDE RECORDS SUMMARY | 2025-04-07 13:04 | XMS_ITS | Clinical Summary ---
Author Organization [facility] Address [address] [place] [phone] Phone Care Team Providers Care Account Support Manager Name Role Phone Referring, Not Required Primary [...] Phone Billing Address Personal/Family Self 1950 [address] [facility] [address] [place] [address] MEDICARE PART A & B [facility] MED[facility] PART A & [facility] MED[facility] PART A & [place] [facility] & [facility] [place] [address] MEDICARE PART A & B [facility] [place]IC[place] [address] [place]IC[place] A [place] * Guarantor: Cyndee Rodríguez Account Type Relation to Patient Date of Phone Billing Address Personal/Family Self 1950 [address] [facility] [address] [place] [id number] MEDICARE PART A & B [facility] Care Teams Account Support Manager Relationship Specialty Start Date End Date Referring, Not Required PCP - General 09/11/20 Additional Source Comments The information contained in this document represents components of the legal health record. It is not the complete legal health record.[facility]
--- OUTSIDE RECORDS SUMMARY | 2025-04-07 13:05 | XMS_ITS | Data Portability ---
Author Organization [place] [facility] Address [address] [place] [address] [address] [place] [address] Care Team Providers Care Humane Agent Name Role Phone RANDAL SIMMONS Primary Care Provider Assessment Encounter Date Assessment Date Assessment LastModified by Organization Details LastModified Time 01/25/2025 01/25/2025 1. Chronic ritika ce disturbance for ambulatory The patient's balance issues, described as staggering without spinning, are linked to underlying neuropathy and spinal problems. Education was provided about symptom description for accurate specialist evaluation and treatment. Further discussion with her client account specialist regarding surgical intervention is certainly warranted. Would strongly recommend against the use of vestibular suppressant such as meclizine or benzodiazepines as this would certainly make her symptoms worse. 2. Lumbar Disc Herniation The herniated disc likely impacts balance. Neuropathy is contributing to balance issues through altered proprioception. Consultation for possible surgical intervention to relieve spinal nerve compression may provide symptomatic improvement and alleviate balance disturbance. 3. Possible medication side effect resulting in intermittent lightheadedness. In Further discussion with the primary care physician about current medications and symptoms management is necessary. 4. Visual Impairment Vision loss following cataract surgery interferes with balance compensation. Ongoing ophthalmological care is critical for managing effects on balance. 5. Chronic Leg Pain Current pain management includes oxycodone with awareness of side effects potentially impacting balance. Continued monitoring and medication review with primary care is advised. [email or web address] Not available 01/25/2025 10:19:15 Plan of Treatment Reminders Order Date Submit Date Provider Last Modified By Organization Details Last Modified Time Details Appointments None record ed. Lab None record ed. Referral None record ed. Procedures None record ed. Surgeries None record ed. Imaging None record ed. Medication Orders None record ed. Patient TargetsNo targets recorded. Patient Instructions Encounter Date Encounter Id Patient Instructions Last Modified By Organization Details Last Modified Time 01/25/2025 [id number] Please note: Parts of this encounter note have been generated by AI based on audio conversation. Patient consent was required prior to utilizing this technology. Content review was required prior to finalizing the note. [email or web address] Not available 01/25/2025 10:14:51 Reason for Referral None Reported. Results Created Date Observation Date Name Description Value Unit Range Abnormal Flag Note LastModifiedBy Organization Detail LastModifiedTime 01/26/20 25 audio gram No observ ation record ed. BARCODE Not Available 2024 12:57:28 Result Notes None recorded. Problems Name Problem SNOMED Code Status Onset Date Resolution Date Notes Provider Name and Address Organization Details Recorded Time Impacted cerumen in right ear 6742072050524 103 Active 2024 AMANDA SANCHEZ MD [address] [place] [address], [place], [phone], [facility] - [facility] 09:23:02 Dizziness and giddiness 651241788 Active 2024 LAWRENCE WEST, CARA [address] [place] [address], [place], [address], [facility] - [facility] 09:37:30 Unsteady when standing 641767203 Active 2024 AMANDA SANCHEZ MD [address] [place] [address], [place], [address], [facility] - [facility] 10:17:52 Neuropathy 179479377 Active 2024 AMANDA SANCHEZ MD [address] [place] [address], [place], [address], [facility] - [facility] 10:18:25 Herniation of nucleus pulposus of lumbar interverteb ral disc 8609894036328 06 Active 2024 AMANDA SANCHEZ MD [address] [place] [address], [place], [address], [facility] - [facility] 10:18:31 Drug therapy finding 241670119 Active 2024 AMANDA SANCHEZ MD [address] [facility] [address], [place], [address], [place] [facility] 10:18:42 Problem Notes None recorded. Procedures Surgical History Date Name Laterality Status Provider Name and Address Organization Details Recorded Time Comp Audio with Tymps - 27251 & 78181 completed CARA ECKERT [address] [address], [place], [address], [place] - [facility] 01/25/2025 09:37:36 Cerumen removal with microscope right completed AMANDA SANCHEZ MD [address], [address], [place] - [facility] 01/25/2025 09:22:33 Imaging Results None recorded. Procedure Notes None recorded. Medical Equipment None Reported. Medications Name Sig Start Date Stop Date Status Note LastModified by Organization Details LastModified Time olanzapine 10 mg tablet TAKE ONE TABLET EVERY NIGHT active Not Available Not Available No t Available estradiol-noret hindrone acet 1 mg-0.5 mg tablet TAKE ONE TABLET BY MOUTH EVERY DAY active Not Available Not Available No t Available tramadol 50 mg tablet TAKE ONE TABLET EVERY 8 HOURS NEEDED FOR PAIN active Not Available Not Available No t Available levothyroxine 50 mcg tablet TAKE ONE TABLET DAILY active Not Available Not Available No t Available metoprolol tartrate 50 mg tablet TAKE ONE TABLET TWICE DAILY active Not Available Not Available No t Available olanzapine 15 mg tablet TAKE ONE TABLET AT BEDTIME active Not Available Not Available No t Available oxycodone 5 mg tablet TAKE ONE TABLET EVERY 8 HOURS NEEDED FOR PAIN active Not Available Not Available No t Available metoprolol tartrate 25 mg tablet TAKE ONE TABLET TWICE DAILY active Not Available Not Available No t Available Vitals Date Recorded Body height Body mass index (BMI) Body weight Provider Name and Address Organization Details Last Updated DateTime 01/25/2025 162.56 cm 20.6 kg/m2 00660.08 g [place] [facility] [place] - [facility] 01/25/2025 09:09:00 Social History None recorded. Functional Status Question Answer Note LastModified by Organization D etails LastModified Time What is your level of alcohol consumption? None [email or web address] Information not available 01/25/2025 Mental Status None recorded. Family History Nothing Reported. Medical History Condition Response Arthritis Y Anxiety Y Thyroid Problems Y Hypertension Y Gynecological HistoryNo gynecological history recorded. Obstetrics History GPAL:G 0 P 0 0 0 0 Past Encounters Encounter ID Performer Location Encounter Start Date Encounter Closed Date Diagnosis/Indication Diagnosis SNOMED-CT Code Diagnosis ICD10 Code Diagnosis IMO Codes Diagnosis Note [id number] AMANDA SANCHEZ MD [facility] [address] [address] 01/25/2025 08:37:12 01/25/2025 11:41:22 Impacted cerumen in right ear 6694078407 106673 H61.21 0544411 Cerumen disimpacte d from the right ear. This is certainly secondary to her chronic, excessive Q-tip use. Today we spent some time talking about the fact that cerumen is a natural antibiotic , antifungal , waterproof er, and moisturize r of the delicate external auditory canal skin. The use of Q-tips strips away this natural protection and makes the ear canal skin more likely to become itchy, irritated or become infected. There is also the risk of trauma to the tympanic membranes as well. We discussed proper aural hygiene techniques to maintain the health of the external ears. Unsteady w hen standing 605577617 R26.81 0845582 Neuropathy 383771460 G60 .3 3827707 Herniation of nucleus pulposus of lumbar intervertebral disc 8787913332 92868 M51.26 33953335 Drug therapy finding 309 976893 T88.7XXA [id number] CARA ECKERT [facility] [address] [address] 01/25/2025 09:37:17 01/25/2025 22:53:53 Dizziness and giddiness 679180703 R42 80514 Audiologic al evaluation results: 01/25/2025 Right ear: Normal hearing with excellent word recognitio n. Left ear: Normal hearing with excellent word recognitio n. Tympanomet ry: Right Ear:Type A Left Ear:Type A Health Concerns Section Related Observation LastModified by Organization Detai ls LastModified Time None Recorded Concern Status LastModified by Organization Details LastModified Time None Recorded Advance Directives Directive None Recorded Payers Insurance Date Sequence Insurance Name Policy Number Policy Hawthorne Covered Member ID Hawthorne Member ID Guarantor Name 01/25/2025 1 [place]: [employer] Cyndee Rodríguez [id number] Cyndee Rodríguez 01/24/2025 2 [place] [facility] Cyndee Rodríguez [id number] Cyndee Rodríguez Notes Date Note Type Note Provider Name and Address Organization Details Recorded Time 01/25/2025 text/html The patient is a 74-year-old female presenting with chronic balance disturbance persisting for five years. She reports improved stability while seated or lying down, with symptoms exacerbated during ambulation. She does not experience true vertigo but describes an unsteady, staggering sensation while walking. This condition coincides with her lumbar herniated disc, raising discussions of surgical interventions with multiple specialists. The patient's peripheral neuropathy contributes to her balance issues, manifesting as leg tingling and numbness. Her visual impairment includes peripheral vision loss, impacting compensatory mechanisms and contributing to the perceived balance disturbance. She is on medications including oxycodone and metoprolol, the side effects of which could involve dizziness. Past pharmacotherapy with tramadol for leg cramps was ineffective recently. These symptoms and the underlying conditions substantially affect her daily functioning, preventing normal ambulation and causing her to be cautious when moving within her living environment. AMANDA SANCHEZ MD [address] [place] [address], [phone], [facility] - [facility] 01/25/2025 10:19:31 OBGyn Episode No OBEpisode recorded.
== END 2025-04-07 11:10 | disposition home or self-care (01) ==
LOC: HO.MAMMO 11:09
PROVIDERS: PCP Student in an Organized Health Care Education/Training Program; Visit Provider Student in an Organized Health Care Education/Training Program
DX: Z12.31 Encounter for screening mammogram for malignant neoplasm of breast (principal)
CPT/HCPCS: 77063; 77067

== ENCOUNTER → 2025-04-07 11:45 | Outpatient (BNV) | payer MEDICARE, MEDICAID, SELFPAY | PROVIDERS: PCP Student in an Organized Health Care Education/Training Program; Visit Provider Internal Medicine | DX: Z12.31 Encounter for screening mammogram for malignant neoplasm of breast (principal) | CPT/HCPCS: 77063; 77067 ==

== ENCOUNTER 2025-04-27 09:13 | Outpatient (AMB) | payer MEDICARE, MEDICAID, SELFPAY ==
[2025-04-27 09:18] VITALS: BP 124/80; PULSE 65; TEMP 36.2; O2SAT 97; BMI 20.6
--- NOTE | 2025-04-27 09:18 | A.OFFPC_ITS ---
Vital Signs 04/27/25 09:18 Height 5 ft 4 in Weight 120 lb 2 oz BMI 20.6 BP 124/80 Blood Pressure Location Lt brachial Position Sitting Pulse 65 Pulse Source Pulse Oximeter Temp 97.1 F Temp Source Temporal Artery Scan Pulse Oximetry (%) 97 Oxygen Delivery Method Room Air Intake Visit Reasons: f/u, changed to in person due to insurance Investigative Analyst Required: No Accompanied by: Self / Same As Patient Allergies No Known Allergies Allergy (Verified 04/27/25 09:19) Tobacco use date assessed: 04/27/25 Fall risk assessment: No Falls in past year Last assessed Fall Risk: 04/27/25 Dental Screening Dental Screen Date: 04/27/25 Did you have a dental visit in the last 12 months?: Yes Did you have a dental problem in the last 6 months where you did not have access to dental care?: No HPI HPI Comments History of Present Illness Details The patient is a 75-year-old female presenting with chronic back pain. The patient reports that the pain intensified when taking gabapentin, which exacerbated the condition rather than relieved it. After discontinuing gabapentin, she reports a slight improvement in her condition, although the pain remains significant, rated at 8 out of 10. The patient is currently managing her pain with 3,000 mg of Tylenol daily, which helps but does not fully alleviate her discomfort. She acknowledges being accustomed to a level of pain and therefore has refrained from further exploring surgical options such as seeing a spine surgeon, despite previous recommendations. The chronic back pain has been persistent for several years, negatively affecting her social life as she has withdrawn from social activities. She also reports issues with balance and dizziness, which she has experienced for approximately five years. The dizziness has been attributed to possible spinal problems. The patient experiences difficulty in socialization and demonstrates a reluctance to visit others due to her physical discomfort. Additionally, the issue with back pain is potentially linked to her visual impairment, which includes tunnel vision and double vision, previously treated with cataract surgery two years prior. The presence of glaucoma and its impacts have also been mentioned. Medical History: - Lumbar Spinal Stenosis - Glaucoma - Bipolar Disorder - History of chronic dizziness Surgical History: - Cataract surgery (approx. 2012) Medications: - Tylenol, 3000 mg daily for chronic evi k pain - Metoprolol 50 mg for blood pressure ma nagement - Levothyroxine for thyroid regulation - Olanzapine for bipolar disorder Diagnostic Results: - Recent MRI in 2023 (details not provid ed in conversation) Social History: - The patient exhibits social withdrawal due to pain. - Lives independently and manages her gr oceries with assistance. - Nutrition includes adequate intake; en couragement for high-protein supplements such as Ensure. - Employment and substance use not discu ssed. [facility]LY [facility], [facility] Medical History (Updated 04/27/25 @ 09:58 by Raphael Bauer MD) Foot pain Dizziness, nonspecific Glaucoma Arthritis Back pain Hypothyroid HTN (hypertension) Vision abnormalities Bipolar 1 disorder Herniated disc Surgical History Hx of cataract surgery H/O oral surgery Family History (Updated 04/27/25 @ 09:28 by Caridad Mckay MA) Mother Heart muscle disorder caused by another medical condition Father Heart problem Social History Housing: House Are you a primary day care director to a significant other at home: No Do you presently have visiting nurse or other home services: No Alcohol intake: unknown Patient Tobacco Use Status: Former Tobacco user e-Cigarette/Vaping Use: Former Use service: No Current occupational status: retired Cognitive needs: No Hearing needs: No Vision needs: Yes (rx glasses) Questionnaire PHQ-9 Over the last 2 weeks, how often have you been bothered by any of the following problems? 1. Little interest or pleasure in doing things: not at all 2. Feeling down, depressed, or hopeless: several days (anxiety) 3. Trouble falling or staying asleep, or sleeping too much: not at all 4. Feeling tired or having little energy: not at all 5. Poor appetite or overeating: not at all 6. Feeling bad about yourself - or that you are a failure or have let yourself o r your family down: not at all 7. Trouble concentrating on things, such as reading the newspaper or watching television: not at all 8. Moving or speaking so slowly that other people could have noticed. Or the opposite - being so fidgety or restless that you have been moving around a lot more than usual: not at all 9. Thoughts that you would be better off or of hurting yourself in some way: not at all Total score: 1 Source: Developed by Drs. Nigel Garcia, Lizbet Dominguez, Pedrito Weber and colleagues, with an educational te from [employer]. Thrive Questionnaire Date Thrive assessed: 04/27/25 I am a: Patient Within the past 12 months, did the food you bought not last and you didn't have the money to get more?: Never true Within the past 12 months, did you worry whether your food would run out before you got money to buy more?: Never true Do you have trouble paying for medicines?: No Do you have trouble getting transportation to medical appointments?: No Do you have trouble paying your heating and electricity bill?: No Do you have trouble taking care of your child, family member or friend?: No Do you have trouble with day-to-day activities such as bathing, preparing meals, shopping, managing finances, etc.?: No Are you currently unemployed and looking for a job?: No Are you interested in more education?: No THRIVE Score: 0 AUDIT C Alcohol Use Questionnaire (AUDIT-C) 1. How often do you have a drink containing alcohol?: Never 3. How often do you have six or more drinks on one occasion?: Never Total Score: 0 JONATHAN-7 AMB Questionnaire JONATHAN-7 Date JONATHAN - 7 assessed: 04/27/25 Feeling nervous, anxious, or on edge: 0 = Not at all Not being able to stop or control worryin = Not at all Worrying too much about different things: 0 = Not at all Trouble relaxin = Not at all Being so restless that it is hard to sit still: 0 = Not at all Becoming easily annoyed or irritable: 0 = Not at all Feeling afraid as if something awful might happen: 0 = Not at all Total JONATHAN-7 score (0-4 normal; 5-9 mild; 10-14 moderate; 15-21 severe): 0 Source: Developed by Drs. Nigel Garcia, Lizbet Dominguez, Pedrito Weber and colleagues, with an educational te from [employer]. Review of Systems Narrative - Musculoskeletal: Reports chronic back pain of 8/10 severity. - Neurological: Reports dizziness and balance issues. - Ophthalmological: Reports double vision and tunnel vision; history of glaucoma. - Psychological: Reports symptoms consistent with bipolar disorder. - Dermatologic: Denies any specific complaints. All systems reviewed & are unremarkable except as reviewed in HPI and above Physical exam (Primary Care) Vital Signs: Last Vital Signs Temp 97.1 F 04/27/25 09:18 Pulse 65 04/27/25 09:18 BP 124/80 04/27/25 09:18 Pulse Ox 97 04/27/25 09:18 Oxygen Delivery Method Room Air 04/27/25 09:18 BMI result Body Mass Index 20.6 Tobacco/Smoking Status: Tobacco use Status Tobacco use date assessed 04/27/25 04/27/25 09:20 Patient Tobacco Use Status Former Tobacco user 04/27/25 09:20 e-Cigarette/Vaping Use Former Use 04/27/25 09:20 PHQ-9: PHQ-9 Score PHQ-9: Total score 1 04/27/25 09:29 Thrive Assessment: Date of Thrive Assessment Date Thrive assessed 04/27/25 04/27/25 09:20 Narrative General: Alert and oriented, Well nourished, No acute distress. Eye: Pupils are equal, round and reactive to light, Intact accommodation, Extraocular movements are intact, Normal conjunctiva, Vision impaired due to glaucoma, tunnel vision, and double vision. HENT: Normocephalic, Atraumatic, Tympanic membranes are clear, Normal hearing, Oral mucosa is moist, No pharyngeal erythema, Ear canals patent. Respiratory: Lungs CTA bilaterally, No wheeze, Respirations are non-labored. Cardiovascular: Regular rate, Regular rhythm, S1 auscultated, S2 auscultated, No murmur, Good pulses equal in all extremities, Normal peripheral perfusion, No edema. Gastrointestinal: Soft, Non-tender, Non-distended, Normal bowel sounds, No organomegaly. Musculoskeletal: Normal range of motion, Normal strength, No tenderness, No swelling, No deformity, Normal gait. Integumentary: Warm, Dry, [place], Intact. Neurologic: Alert, Oriented, Normal sensory, Normal motor function, No focal defects, Cranial Nerves II-XII are grossly intact, Normal deep tendon reflexes, Reports dizziness and balance issues. Psychiatric: Cooperative, Appropriate mood & affect, Normal judgment, Reports social withdrawal and discomfort due to pain. Coding Level of Care Code Est Pt Level 4 (29079) Complex EM visit Add On G2211 Diagnoses Lumbar spondylosis M47.816 Radiculopathy, lumbar region M54.16 Pain in both feet M79.671; M79.672 Laterality: bilateral Primary hypertension I10 Hypertension type: primary hypertension Bipolar 1 disorder F31.9 Hypothyroidism, unspecified type E03.9 Hypothyroidism type: unspecified Assessment & Plan Assessment & Plan (1) Lumbar spondylosis: Comment: - Discussed surgical intervention again today and provide referral to a neurosurgeon. She reports that she would like to think about it however after extensive discussion she did have we do see a different surgeon for possible intervention. Is able to ambulate however does cause significant distress and per family has become more withdrawn Code(s): M47.816 - Spondylosis without myelopathy or radiculopathy, lumbar region Category: Medical (2) Radiculopathy, lumbar region: Comment: - Continues to have pain antibody 110 the pain scale, reports the gabapentin that she had intensified pain still immature oxycodone and Tylenol and is providing adequate relief and she would like to continue with the same and we will further medications. Code(s): M54.16 - Radiculopathy, lumbar region Category: Medical (3) Foot pain: Comment: Endorses with patent bilaterally and requesting to see a behavior clinician for further evaluation. Code(s): M79.673 - Pain in unspecified foot Category: Medical Qualifiers: Laterality: bilateral Qualified Code(s): M79.671 - Pain in right foot; M79.672 - Pain in left foot (4) HTN (hypertension): Comment: Continue home regimen of metoprolol tartrate 50 mg b.i.d. Pressure is well controlled in clinic today Code(s): I10 - Essential (primary) hypertension Category: Medical Qualifiers: Hypertension type: primary hypertension Qualified Code(s): I10 - Essential (primary) hypertension (5) Bipolar 1 disorder: Comment: - Acknowledged her emotional and physical state affecting her decision-making. - Continue follow up with Behavioral Health & Continue Olanzapine Code(s): F31.9 - Bipolar disorder, unspecified Category: Medical (6) Hypothyroid: Comment: - Repeat TSH from March WN, advised continued Levothyroxine 50mg Code(s): E03.9 - Hypothyroidism, unspecified Category: Medical Qualifiers: Hypothyroidism type: unspecified Qualified Code(s): E03.9 - Hyp othyroidism, unspecified Plan: Health Maintenance: - Discussed the importance of adequate protein intake for nutritional support and encouraged Ensure supplementation. - Reaffirmed the regular monitoring of glaucoma and thyroid function. Patient was informed and verbally consented to the use of an ambient scribe for clinic note documentation during this visit. Plan During the visit, I discussed the patient's chronic back pain and its impact on quality of life, including social withdrawal and decreased mobility. I reiterated the potential benefits of surgical intervention for lumbar spinal stenosis and strongly recommended an assessment with Dr. Augustine, although the patient showed reluctance. The examination of other treatments like acetaminophen has been continually considered, though she reported moderate relief. Health maintenance discussions included ensuring adequate nutrition through protein supplementation. Furthermore, the importance of regular follow-up for her glaucoma and other ongoing medical issues was emphasized. Orders: Referrals Podiatry Referral M79.673 - Pain in unspecified foot Neurosurgery Referral M47.816 - Spondylosis without myelopathy or radiculopathy, lumbar region Medications: New fluticasone propionate 50 mcg/actuation 2 sprays intranasal DAILY 16 grams 0RF Patient Instructions: - Continue taking Tylenol as directed for back pain. - Follow up with referral to Dr. Augustine for lumbar spinal assessment. - Ensure adequate protein intake, consider adding Ensure to daily diet. - Maintain current medication regimen for existing conditions. - Follow up with eye care provider for vision concerns. - Report any significant changes or worsening symptoms immediately.
== END 2025-04-27 09:56 | disposition home or self-care (01) ==
LOC: HO.HMCHD 09:14
PROVIDERS: PCP Student in an Organized Health Care Education/Training Program; Visit Provider Student in an Organized Health Care Education/Training Program
DX: M47.816 Spondylosis without myelopathy or radiculopathy, lumbar region (principal); M54.16 Radiculopathy, lumbar region; M79.671 Pain in right foot; M79.672 Pain in left foot; I10 Essential (primary) hypertension; F31.9 Bipolar disorder, unspecified; E03.9 Hypothyroidism, unspecified

== ENCOUNTER → 2025-04-27 09:13 | Outpatient (BNVA) | payer MEDICARE, MEDICAID, SELFPAY | PROVIDERS: Visit Provider Student in an Organized Health Care Education/Training Program | DX: M47.26 Other spondylosis with radiculopathy, lumbar region (principal); M79.671 Pain in right foot; M79.672 Pain in left foot; I10 Essential (primary) hypertension; F31.9 Bipolar disorder, unspecified; E03.9 Hypothyroidism, unspecified; Z79.899 Other long term (current) drug therapy; Z13.30 Encounter for screening examination for mental health and behavioral disorders, unspecified; Z13.39 Encounter for screening examination for other mental health and behavioral disorders | CPT/HCPCS: 96127; 99212 ==

== ENCOUNTER 2025-05-18 11:48 | Outpatient (AMB) | payer MEDICARE, MEDICAID, SELFPAY ==
--- NOTE | 2025-05-18 12:37 | A.OFFVIS_ITS ---
Vital Signs 05/18/25 12:38 Height 5 ft 4 in Intake Visit Reasons: Foot pain Intake Note: Cyndee is a 75 year old female who presents today as an new patient for foot pain. Pain is located on the medial aspect of her ankle and dorsum aspect of the foot. She states the pain has been going on for about a couple of months. Patient had taken prescribed pain meds such as Tramadol, oxycodone and has found no relief for her symptoms. She mentions she has herniated disc in her back and was advised on proceeding with a lumbar fusion however patient has declined this procedure. She would like to get her nails trimmed Allergies No Known Allergies Allergy (Verified 05/18/25 12:39) HPI Comments Details: The patient is a 75-year-old female with a past medical history as seen below presenting thickened, discolored, dystrophic, and elongated toenails x10. Patient also states she experiences numbness and tingling due to radiculopathy. Patient also states she has a history of glaucoma. Due to her past medical history she has difficulty tending to her feet. She experiences discomfort to the toes when the nails are too thick are long. She denies any other pedal concerns. Patient states she recently stubbed her toe which caused some bruising to the proximal nailbed of the left hallux. She denies any other pedal concerns. Patient was accompanied by a family member. [facility] Medical History (Updated 05/21/25 @ 11:13 by Rachelle Shah DPM) Varicose veins of both lower extremities Pain in toes of both feet Nail dystrophy Nail disorder Tinea unguium Right ankle pain Right foot pain Foot pain Dizziness, nonspecific Glaucoma Arthritis Back pain Hypothyroid HTN (hypertension) Vision abnormalities Bipolar 1 disorder Herniated disc Surgical History Hx of cataract surgery H/O oral surgery Family History (Updated 04/27/25 @ 09:28 by Caridad Mckay MA) Mother Heart muscle disorder caused by another medical condition Father Heart problem Social History Housing: House Are you a primary healthcare social worker to a significant other at home: No Do you presently have visiting nurse or other home services: No Alcohol intake: unknown Patient Tobacco Use Status: Former Tobacco user e-Cigarette/Vaping Use: Former Use service: No Current occupational status: retired Cognitive needs: No Hearing needs: No Vision needs: Yes (rx glasses) Review of Systems Const Details: - Neurological: Reports numbness and tingling in the lower extremities - Musculoskeletal: Reports back pain and herniated discs, denies recent foot or ankle injury - Ophthalmologic: Reports vision impairment due to glaucoma All systems reviewed & are unremarkable except as noted in HPI and below Physical Exam Extrem Other: Bilateral lower extremity focused physical exam: Derm: No open lesions abrasions or wounds noted. Toenails noted to be thickened, dystrophic, discolored, and elongated x10 with subungual debris noted. Mild ecchymosis noted to the proximal nailbed of the left hallucal nail. No detachment of the nail from the nailbed at this time. No maceration noted. Skin supple and turgor within normal limits for age. No clinical signs of infection noted. Vascular: DP/PT pulses palpable. Capillary refill time less than 3 seconds. Temperature gradient warm to warm. Pedal hair absent. Varicosities noted. No edema noted. Neuro: Protective sensations grossly diminished. MSK: No pain on palpation to the forefoot, hindfoot, and ankles. Range of motion of the forefoot, hindfoot and ankles slightly reduced. Slow gait noted. Hammertoe deformities noted bilaterally. No crepitus or fluctuance noted. Class B and C findings noted. Office Procedures AMB Debridement/Avulsion Podia Details: Debrided toenails x10 using sterile nail nippers without any incidents. Sent nail samples for pathology and microbiology. [id number] of Nail 6+ Procedure code (CPT) selection complete Results Reviewed Results Reviewed: Laboratory Tests 03/23/25 10:32 Estimat Average Glucose 114 Hemoglobin A1c % 5.6 Sent nail samples for pathology and microbiology. Assessment & Plan Assessment & Plan (1) Nail dystrophy: Code(s): L60.3 - Nail dystrophy Category: Medical (2) Nail disorder: Code(s): L60.9 - Nail disorder, unspecified Category: Medical (3) Tinea unguium: Code(s): B35.1 - Tinea unguium Category: Medical (4) Pain in toes of both feet: Code(s): M79.674 - Pain in right toe(s); M79.675 - Pain in left toe(s) Category: Medical (5) Radiculopathy, lumbar region: Code(s): M54.16 - Radiculopathy, lumbar region Category: Medical (6) Varicose veins of both lower extremities: Code(s): I83.93 - Asymptomatic varicose veins of bilateral lower extremities Category: Medical Plan Patient was informed and verbally consented to the use of an ambient scribe for clinic note documentation during this visit. I discussed with the patient the management of her ingrown toenail, including regular trimming every nine weeks and the potential need for antifungal checo tment if a fungal infection is confirmed. We also reviewed her back condition and her decision to avoid surgery, opting for conservative management instead. I advised her to monitor her symptoms and report any changes, particularly regarding her neuropathy. - Debrided toenails x10 and sent nail samples to pathology and microbiology. - Consider topical antifungal treatment if fungal infection is confirmed. - Advised patient to wear supportive shoe gear and avoid barefoot walking. -Advised patient to monitor her feet daily for any signs of worsening symptoms. RTC in 9 weeks. Orders: Orders AMB Debridement/Avulsion Podiatry 05/18/25 B35.1 - Tinea unguium, L60.3 - Nail dystrophy, L60.9 - Nail disorder, unspecified, M79.674 - Pain in right toe(s), M79.675 - Pain in left toe(s) Fungus Cult Hair/Skin/Nail 05/18/25 B35.1 - Tinea unguium, L60.3 - Nail dystrop hy, L60.9 - Nail disorder, unspecified Surgical 05/18/25 B35.1 - Tinea unguium, L60.3 - Nail dystrophy, L60.9 - Nail disorder, unspecified Coding Level of Care Code New Pt Level 4 (09850) Diagnoses Nail dystrophy L60.3 Nail disorder L60.9 Tinea unguium B35.1 Pain in toes of both feet M79.674; M79.675 Radiculopathy, lumbar region M54.16 Varicose veins of both lower extremities I83.93 CPT Codes Skin Debridement - CPT: 64252-Wbeapnymneb of Nail 6+ ([id number]) Time Spent (min) 55 Comment 10 mins for procedure
--- OUTSIDE RECORDS SUMMARY | 2025-05-18 14:42 | XMS_ITS | Encounter Summary ---
Author Organization [facility] Address [facility] [address] [place] [phone] Phone Care Team Providers Care Tier And Detonator Name Role Phone Referring, Not Required Primary Care Provider Un available Encounter Details Date Type Department Care Team ([facility] st Contact Info) Description 05/04/2024 Procedure Pass [facility] [address] [place] [address] Social History Tobacco Use Types Packs/Day Years [...] on filedocumented in this encounter Care Teams Tier And Detonator Relationship Specialty Start Date End Date Referring, Not Required PCP - General 09/11/20 documented as of this encounter Additional Source Comments The information contained in this document represents components of the legal health record. It is not the complete legal health record.[facility]
--- OUTSIDE RECORDS SUMMARY | 2025-05-18 14:42 | XMS_ITS | Encounter Summary ---
Author Organization [facility] Address [address] [place] [phone] Phone Care Team Providers Care Operational Communication Chief Name Role Phone Referring, Not Required Primary Care Provider Un available Reason for Referral * Outpatient Procedure - Closed Specialty Diagnoses / Procedures Referred By Contac t Referred To Contact Diagnoses Cerebrovascular accident (CVA), unspecified mechanism Procedures Adult Echo TTE Agapito Morris MD [address] [place] [address], [address] [place] [phone] Phone: tel: fax: mailto: Referral ID Status Reason Start Date Expiration Date Visits Re quested Visits Authorized [id number] Closed 05/04/2024 04/24/2025 1 1 * Outpatient Procedure - Closed Specialty Diagnoses / Procedures Referred By Contac t Referred To Contact Radiology Diagnoses Cerebrovascular accident (CVA), unspecified mechanism Procedures US Carotid Duplex Complete (Bilateral) Agapito Morris MD [address] [place] [address], [address] [place] [phone] Phone: tel: fax: mailto: Referral ID Status Reason Start Date Expiration Date Visits Re quested Visits Authorized [id number] Closed 05/04/2024 05/04/2025 1 1 Encounter Details Date Type Department Care Team (Latest Contact Info) Description 05/04/2024 Transcribe Orders Virtual Department [address] [place] [phone] Agapito Morris MD [address] [place] [address], [address] [place] [address] [email or web address] Cerebrovascular accident (CVA), unspecified mechanism (Primary [...] represents the denominator. Narrative 05/31/2024 11:53 AM [facility] CAROTID DUPLEX COMPLETE (BILATERAL) Referring clinician's provided [...] mechanism documented in this encounter Care Teams Operational Communication Chief Relationship Specialty Start Date End Date Referring, Not Required PCP - General 09/11/20 documented as of this encounter Additional Source Comments The information contained in this document represents components of the legal health record. It is not the complete legal health record.[facility]
--- OUTSIDE RECORDS SUMMARY | 2025-05-18 14:42 | XMS_ITS | Clinical Summary ---
Author Organization [facility] Address [address] [place] [address] Phone Care Team Providers Care Electric Meter Inspector Name Role Phone Referring, Not Required Primary [...] on patient's age to complete this topic IPV VACCINES Aged Out No longer eligi ble based on patient's age to complete this topic MENINGOCOCCAL VACCINES (ACWY) Aged Out No longer eligible based on patient's age to complete this topic MENINGOCOCCAL VACCINES (B) Aged Out N o longer eligible based on patient's age to complete this topic Medical Devices Not on file Insurance MEDICARE PART A & [place] & [facility] B Member Subscriber Plan / Payer ( fective 1987-) Name:Cyndee Rodríguez Member ID:[id number] Relation to Subscriber:Self Name:Cyndee Rodríguez Subscriber ID:[id number] Payer ID:[id number] Group ID:Not on file Type:Medicare Address: [employer] [address] [place] MEDIC[place] PART A & B [facility] [place] * Guarantor: Cyndee Rodríguez Account Type Relation to Patient Date of Phone Billing Address Personal/Family Self 1950 [address] [facility] [place] [address] MEDICARE PART A & [place] MED[place] PART A & B [employer] MEDICARE PART [place] & [place] * Guarantor: Cyndee Rodríguez Account Type Relation to Patient Date of Phone Billing Address Personal/Family Self 1950 [address] [place] [address] MEDICARE PART A & B Member Subscriber Plan / Payer (Ef fective 1987-Present) Name:Cyndee Rodríguez Member ID:[id number] Relation to Subscriber:Self Name:Cyndee Rodríguez Subscriber ID:[id number] Payer ID:[id number] Group ID:Not on file Type:Medicare Address: [facility] [employer] [facility] [address] [place] [id number] [facility] Care Teams Electric Meter Inspector Relationship Specialty Start Date End Date Referring, Not Required PCP - General 09/11/20 Additional Source Comments The information contained in this document represents components of the legal health record. It is not the complete legal health record.[facility]
--- OUTSIDE RECORDS SUMMARY | 2025-05-18 14:42 | XMS_ITS | Data Portability ---
Author Organization [place] - [facility] Address [address] [place] [address] [address] [place] [address] Care Team Providers Care Machine Coremaker Name Role Phone RANDAL SIMMONS Primary Care Provider Assessment Encounter Date Assessment Date Assessment LastModified by Organization Details LastModified Time 01/25/2025 01/25/2025 1. Chronic ritika ce disturbance for ambulatory The patient's balance issues, described as staggering without spinning, are linked to underlying neuropathy and spinal problems. Education was provided about symptom description for accurate specialist evaluation and treatment. Further discussion with her brand marketing specialist regarding surgical intervention is certainly warranted. [...] medication review with primary care is advised. [email or web address] Not available 01/25/2025 10:19:15 Plan of Treatment [...] By Organization Details Last Modified Time 01/25/2025 [id number] Please note: Parts of this encounter note have been generated by AI based on audio conversation. Patient consent was required prior to utilizing this technology. Content review was required prior to finalizing the note. [email or web address] Not available 01/25/2025 10:14:51 Reason for Referral [...] Recorded Time Impacted cerumen in right ear 0517995230570 103 Active 2024 AMANDA SANCHEZ MD [address] [place] [address], [place], [address], [facility] 09:23:02 Dizziness and giddiness 379581810 Active 2024 LAWRENCE WEST, CARA [address] [place] [address], [place], [address], [facility] - [facility] 09:37:30 Unsteady when standing 593604689 Active 2024 AMANDA SANCHEZ MD [address] [place] [address], [place], [address], [facility] - [facility] 10:17:52 Neuropathy 179617794 Active 2024 AMANDA SANCHEZ MD [address] [place] [address], [place], [address], [facility] - [facility] 10:18:25 Herniation of nucleus pulposus of lumbar interverteb ral disc 6757287812333 06 Active 2024 AMANDA SANCHEZ MD [address] [place] [address], [place], [address], [facility] - [facility] 10:18:31 Drug therapy finding 404566939 Active 2024 AMANDA SANCHEZ MD [address] [facility] [address], [place], [address], [place] - [facility] 10:18:42 Problem Notes None recorded. Procedures Surgical History Date Name Laterality Status Provider Name and Address Organization Details Recorded Time Comp Audio with Tymps - 68846 & 23232 completed CARA ECKERT [address] [address], [place], [address], [place] - [facility] 01/25/2025 09:37:36 Cerumen removal with microscope right completed AMANDA SANCHEZ MD [address], [address], [place] - [facility] 01/25/2025 09:22:33 Imaging Results None recorded. Procedure [...] Updated DateTime 01/25/2025 162.56 cm 20.6 kg/m2 07898.08 g [place] - [facility] 01/25/2025 09:09:00 Social History None recorded. Functional [...] ICD10 Code Diagnosis IMO Codes Diagnosis Note [id number] AMANDA SANCHEZ MD [facility] [address] [address] 01/25/2025 08:37:12 01/25/2025 11:41:22 Impacted cerumen in right ear 1749528137 595103 H61.21 7386929 Cerumen disimpacte d from the right ear. [...] the external ears. Unsteady w hen standing 871989717 R26.81 1218451 Neuropathy 822617621 G60 .3 0882568 Herniation of nucleus pulposus of lumbar intervertebral disc 9512089914 89632 M51.26 24147085 Drug therapy finding 309 015159 T88.7XXA [id number] CARA ECKERT [facility] [address] [address] 01/25/2025 09:37:17 01/25/2025 22:53:53 Dizziness and giddiness 367517116 R42 32685 Audiologic al evaluation results: 01/25/2025 Right ear: [...] ID Guarantor Name 01/25/2025 1 [place]: [employer] Cyndee Rodríguez [id number] Cyndee Rodríguez 01/24/2025 2 [place] [facility] Cyndee Rodríguez [id number] Cyndee Rodríguez Notes Date Note Type Note [...] within her living environment. AMANDA SANCHEZ MD [address] [place] [address], [phone], [facility] - [facility] 01/25/2025 10:19:31 OBGyn Episode No OBEpisode recorded.
--- OUTSIDE RECORDS SUMMARY | 2025-05-18 14:42 | XMS_ITS | Encounter Summary ---
Author Organization [facility] Address [address] [employer] [address] [address] Phone Care Team Providers Care Communications Instructor Name Role Phone Referring, Not Required Primary Care Provider Un available Reason for Visit * Reason Comments Medication Refill Encounter Details Date Type Department Care Team ([facility] st Contact Info) Description 08/30/2021 Refill [facility] [address] [address] Rachel Amanda MD [address] [place] [id number] [email or web address] Medication Refill Social History Tobacco [...] on filedocumented in this encounter Care Teams Communications Instructor Relationship Specialty Start Date End Date Referring, Not Required PCP - General 09/11/20 documented as of this encounter Additional Source Comments The information contained in this document represents components of the legal health record. It is not the complete legal health record.[facility]
== END 2025-05-18 13:00 | disposition home or self-care (01) ==
LOC: HO.HPODS 11:49
PROVIDERS: PCP Student in an Organized Health Care Education/Training Program; Visit Provider Student in an Organized Health Care Education/Training Program
DX: L60.3 Nail dystrophy (principal); L60.9 Nail disorder, unspecified; B35.1 Tinea unguium; M79.674 Pain in right toe(s); M79.675 Pain in left toe(s); M54.16 Radiculopathy, lumbar region; I83.93 Asymptomatic varicose veins of bilateral lower extremities
CPT/HCPCS: 11721; 99204

== ENCOUNTER 2025-05-18 11:48 | Outpatient (REF) | payer MEDICARE, MEDICAID, SELFPAY | END 2025-05-18 11:49 | disposition home or self-care (01) | LOC: HO.LNP 11:48 | PROVIDERS: PCP Student in an Organized Health Care Education/Training Program; Visit Provider Student in an Organized Health Care Education/Training Program | DX: L60.3 Nail dystrophy (principal); B35.1 Tinea unguium; M79.674 Pain in right toe(s); M79.675 Pain in left toe(s); M54.16 Radiculopathy, lumbar region; I83.93 Asymptomatic varicose veins of bilateral lower extremities | CPT/HCPCS: 11721; 87101; 87106; 87220; 88304; 88312; 99202 ==